=== PATIENT | male | born 1945 | race Caucasian/White ===

== ENCOUNTER 2025-03-05 19:48 | Inpatient (IN) | payer MEDICARE, MEDICAID, SELFPAY ==
[2025-03-05 19:51] VITALS: PULSE 125; RESP 16; O2SAT 95; BMI 35.2
--- NOTE | 2025-03-05 20:08 | XR_ITS ---
EXAMINATION: Abdominal series 3 views including AP portable semiupright chest TECHNIQUE: AP portable semiupright chest single view, AP upright AP supine abdomen 3 views Date and time: March 05, 2025, 2012 hours, comparison September 10, 2022 INDICATIONS: Shortness of breath abdominal pain today. FINDINGS: Normal heart size Poor inspiratory effort Mild vascular congestion Air and fluid distended stomach No obstruction Mild colonic ileus Rectal tube IMPRESSION: Moderately air distended stomach Mild colonic ileus
--- NOTE | 2025-03-05 20:08 | PD.EDAMS ---
Altered Mental Status RME/HPI General Chief Complaint: Altered Mental Status Stated Complaint: AMS Time Seen by Provider: 03/05/25 20:00 Arrival date/time: 03/05/25 19:48 79-year-old male patient with significant history of hypertension diabetes mellitus, dementia, DNR selective treatment, for alf, was brought in for evaluation regarding altered mental status. Patient apparently was noted to be hypoxic, febrile, coughing a lot and having shortness of breath. Onset of symptoms several hours prior to ER visit. When the EMS arrived patient was noted to be satting 93%, GCS of 12, normal is GCS 14. Patient is nonverbal. No other pertinent information can be extracted at this time. Related Data Home Medications ?Medication ?Instructions ?Recorded ?Confirmed acetaminophen 325 mg tablet 650 mg PO Q4H PRN Pain 01/31/19 02/27/19 (Tylenol) bisacodyl 10 mg rectal suppository 10 mg NH Q24H PRN Constipation 02/01/19 02/27/19 (Dulcolax (bisacodyl)) clonidine HCl 0.2 mg tablet 0.2 mg PO QDAY 02/01/19 02/27/19 fenofibrate 54 mg tablet 54 mg PO QDAY 02/01/19 02/27/19 glipizide 5 mg tablet (Glucotrol) 5 mg PO BID 02/01/19 02/27/19 insulin glargine 100 unit/mL (3 15 unit subcut HS Diabetes 02/01/19 02/27/19 mL) subcutaneous pen (Basaglar KwikPen U-100 Insulin) lactulose 20 gram/30 mL oral 30 ml PO BID 02/01/19 02/27/19 solution magnesium hydroxide 400 mg/5 mL 30 ml PO Q72H PRN Constipation 02/01/19 02/27/19 oral suspension (Milk of Magnesia) metformin 500 mg tablet 500 mg PO BID 02/01/19 02/27/19 multivitamin (Multiple Vitamins 1 tab PO QDAY 02/01/19 02/27/19 tablet) peg [id number] 1 1 drp ophthalmic (eye) QDAY PRN 02/01/19 02/27/19 %-0.2 %-0.2 % eye drops Dry Eyes (Artificial Tears ([id number])) perphenazine-amitriptyline 2 mg-10 0.5 tab PO HS 02/01/19 02/27/19 mg tablet sitagliptin phosphate 100 mg 100 mg PO QDAY Diabetes 02/01/19 02/27/19 tablet (Januvia) spironolactone 25 mg tablet 25 mg PO BID 02/01/19 02/27/19 (Aldactone) Previous Rx's ?Medication ?Instructions ?Recorded amoxicillin 875 mg-potassium 1 tab PO BID #10 tabs 02/03/19 clavulanate 125 mg tablet amoxicillin 875 mg-potassium 1 tab PO BID #14 tabs 02/28/19 clavulanate 125 mg tablet (Augmentin) cefuroxime axetil 500 mg tablet 500 mg PO BID #14 tabs 04/12/23 Allergies Allergy/AdvReac Type Severity Reaction Status Date / Time No Known Allergies Allergy Verified 03/05/25 19:57 Review of Systems Review of Systems Narrative Review of Systems: Review of system reviewed and within normal limits except mentioned in HPI ED Exam Narrative Physical exam: VITAL SIGNS: Reviewed. GENERAL APPEARANCE: Alert and oriented x 1, does not follows commands, no acute distress, coughing a lot HEAD AND FACE: Non-traumatic. ENT: PERRL, pink conjunctivitis, eyelid no trauma, Mucous membrane moist. NECK: Supple, nontender, no nuchal rigidity. CHEST: No tenderness, no crepitus, no paradoxical movement, no retractions. LUNGS: Clear, well ventilated, symmetric, no rales, no wheezing, no ronchi, no stridor, good breath sounds bilaterally. HEART: Regular rate, regular rhythm, no murmur, no gallops. ABDOMEN: Soft, positive bowel sounds, nondistended, no guarding, nontender, no rebound, no masses, RECTAL: Deferred. GENITAL: Deferred. NEUROLOGICAL: Gross motor function intact sensory function intact, Appropriate for age. MUSCULOSKELETAL: low back nontender, full range of motion. EXTREMITIES: Bilateral lower extremity atrophy, contracted, with limitation range of motion. SKIN: Color pink, dry, no rash, no lacerations, no abrasions, no contusions. LYMPHATICS: Deferred. Course Quality Measures none Orders Category Date Time Status COVID-19 Screening Questionnaire NOW Care 03/05/25 22:15 Active Choir Director STAT Care 03/05/25 20:07 Active Continuous Pulse Oximetry STAT Care 03/05/25 20:07 Completed Decision to Admit X1 Care 03/05/25 22:15 Active EKG (ED ONLY) *Do not use* NOW Care 03/05/25 20:07 Completed In and Out Catheter X1PRN Care 03/05/25 20:07 Completed Insert IV NOW Care 03/05/25 20:07 Active NPO STAT Care 03/05/25 20:07 Active Strict Intake and Output Routine Care 03/05/25 20:[address] chest wo con Stat Exams 03/05/25 20:[address] head/brain wo con Stat Exams 03/05/25 20:47 Taken EKG (ED Only) Stat Exams 03/05/25 20:07 Ordered XR abdomen series w chest 1V Stat Exams 03/05/25 20:08 Taken B-Type Natriuretic Peptide Stat Lab 03/05/25 20:34 Completed Blood Culture (Lab) Stat Lab 03/05/25 20:36 Received CBC Stat Lab 03/05/25 20:34 Completed Comprehensive Metabolic Panel Stat Lab 03/05/25 20:34 Completed LDH (Lactate Dehydrogenase) Stat Lab 03/05/25 20:34 Completed Lactate (Lactic Acid) Stat Lab 03/05/25 20:34 Results Lipase Stat Lab 03/05/25 20:34 Completed Magnesium Stat Lab 03/05/25 20:34 Completed Partial Thromboplastin Time Stat Lab 03/05/25 20:34 Completed Path Review Blood Smear Stat Lab 03/05/25 20:34 Completed Phosphorous Stat Lab 03/05/25 20:34 Completed Procalcitonin Stat Lab 03/05/25 20:34 Completed Prothrombin Time with INR Stat Lab 03/05/25 20:34 Completed Troponin I Q3H Lab 03/06/25 00:01 Ordered Troponin I Q3H Lab 03/06/25 03:01 Ordered Troponin I Q3H Lab 03/06/25 06:01 Ordered Troponin I Stat Lab 03/05/25 20:34 Completed Troponin I Stat Lab 03/05/25 22:18 Completed Urinalysis, C/S if Indicated Stat Lab 03/05/25 20:30 Completed Urine Culture Stat Lab 03/05/25 20:30 Received Acetaminophen Ivpb [Ofirmev Inj] Med 03/05/25 20:19 Discontinued 1,000 mg in 100 ml IV X1 Ringers Lactated 1000 ml [Lactated Ringers] 1,000 ml Med 03/05/25 21:57 Active IV 125 mls/hr Ringers Lactated 1000 ml [Lactated Ringers] 1,000 ml Med 03/05/25 20:18 Discontinued IV 999 mls/hr Vancomycin Inj 1,000 mg Med 03/05/25 22:13 Active Sodium Chloride 0.9% 250 ml [Ns] 250 ml IV X1 cefTRIAXone/D5w 1gm IV premix [Rocephin/D5w 1gm IV Med 03/05/25 20:18 Discontinued premix] 1 gm in 50 ml IV X1 Oxygen Delivery NOW RT 03/05/25 20:07 Active Vital Signs Vital signs: Vital Signs Oxygen Flow Rate 2 03/05/25 20:14 Altered Mental Status MDM Narrative MDM Narrative:: 79-year-old male patient with significant history of hypertension diabetes mellitus, dementia, DNR selective treatment, for alf, was brought in for evaluation regarding altered mental status. Patient apparently was noted to be hypoxic, febrile, coughing a lot and having shortness of breath. Onset of symptoms several hours prior to ER visit. When the EMS arrived patient was noted to be satting 93%, GCS of 12, normal is GCS 14. Patient is nonverbal. No other pertinent information can be extracted at this time. Patient's CBC showed leukocytosis of 16.9. Neutrophil of 12.6 initial lactic acid was noted with 4.6, glucose 302 no sign of DKA. Patient's troponin also was noted to be elevated 1.16 initially, after 2 hours it went up to 1.82. Urinalysis positive for UTI. CT chest showed possible aspiration pneumonia. CT of the head came back unremarkable. EKG showed sinus tachycardia, no ST segment elevation or depression noted as read by my EDMD Patient was given IV ceftriaxone and IV vancomycin. 2 L of IV fluids given. Patient was also given Tylenol. Patient data External records reviewed:: None Clinical information provided by:: patient Social determinants that could affect healthcare access:: none Patient has the following chronic illnesses:: Diabetes mellitus, dementia, hypertension DNR, selective treatment How is presenting disease/condition affected by chronic disease/condition?: exacerbated by Evaluation data The following diagnostics were reviewed and interpreted by me:: lab results, radiology exam(s) and EKG tracing(s) Lab and/or radiology exams considered but not ordered:: None Interpretation Summary: See MDM Medications / Prescriptions Medications or Prescriptions considered but not ordered:: None Medication administrations:: Medication Administration History Lactated Ringer's (Lactated Ringers) 1,000 mls @ 125 mls/hr IV .Q8H ONE Stop: 03/06/25 05:56 Vancomycin HCl 1,000 mg/ (Sodium Chloride) 250 mls @ 150 mls/hr IV X1 ONE Stop: 03/05/25 23:52 Discontinued Medications Lactated Ringer's (Lactated Ringers) 1,000 mls @ 999 mls/hr IV .Q1H1M ONE Stop: 03/05/25 21:18 Last Infusion: 03/05/25 21:32 Dose: Infused Documented By: Admin: 03/05/25 20:31 Dose: 999 mls/hr Documented By: CCT Ceftriaxone Sodium/Dextrose (Rocephin/D5w 1gm Iv Premix) 1 gm in 50 mls @ 100 mls/hr IV X1 ONE Stop: 03/05/25 20:47 Last Infusion: 03/05/25 21:06 Dose: Infused Documented By: Admin: 03/05/25 20:36 Dose: 100 mls/hr Documented By: CCT Acetaminophen (Ofirmev Inj) 1,000 mg in 100 mls @ 250 mls/hr IV X1 ONE Stop: 03/05/25 20:42 Last Infusion: 03/05/25 20:57 Dose: Infused Documented By: Admin: 03/05/25 20:33 Dose: 250 mls/hr Documented By: CCT See [facility] Consultations Consultation(s) initiated? (list below): No Diagnosis Differential diagnosis altered mental status: altered mental status and sepsis Most likely diagnosis given after review of the tests above:: Sepsis, aspiration pneumonia, elevated troponin Admission Indicated Admission indicated?: indicated Admission Request Was there a request for admission?: Yes Admission Attestation Admission request attestation: Discussed case with [Dr. Rey] from Hospitalist service regarding admission. Discussed patients ED course, exam findings, labs, and radiology results. The Hospitalist [agrees to accept the patient for admission. Disposition Plan Disposition Plan: Admit Discharge Plan Plan Patient Disposition: Admit Acute Care w/in Hospital Prescriptions/Referrals Prescriptions/Med Rec: No Action amoxicillin-pot clavulanate [Augmentin] 875-125 mg tablet 1 tab PO BID Qty: 14 0RF acetaminophen [Tylenol] 325 mg Tablet 650 mg PO Q4H PRN (Reason: Pain) multivitamin [Multiple Vitamins] Tablet 1 tab PO QDAY metformin 500 mg Tablet 500 mg PO BID spironolactone [Aldactone] 25 mg Tablet 25 mg PO BID clonidine HCl 0.2 mg Tablet 0.2 mg PO QDAY magnesium hydroxide [Milk of Magnesia] 400 mg/5 mL Suspension 30 ml PO Q72H PRN (Reason: Constipation) bisacodyl [Dulcolax (bisacodyl)] 10 mg Suppository 10 mg NH Q24H PRN (Reason: Constipation) perphenazine-amitriptyline 2-10 mg Tablet 0.5 tab PO HS glipizide [Glucotrol] 5 mg Tablet 5 mg PO BID Artificial Tears([id number]) 1-0.2-0.2 % Drops 1 drp ophthalmic (eye) QDAY PRN (Reason: Dry Eyes) Januvia 100 mg Tablet 100 mg PO QDAY Luis Pereira U-100 Insulin 100 unit/mL (3 mL) Insulin Pen 15 unit subcut HS fenofibrate 54 mg Tablet 54 mg PO QDAY lactulose 20 gram/30 mL Solution 30 ml PO BID amoxicillin-pot clavulanate 875-125 mg tablet 1 tab PO BID Qty: 10 0RF cefuroxime axetil 500 mg tablet 500 mg PO BID Qty: 14 0RF Referrals: No Primary/Family,Physician [Primary Care Provider] - In 1 week Problem List Clinical Impression: Sepsis, Pneumonia, Elevated troponin Patient/Caregiver Discharge Instructions Print Language: Georgian Stand Alone Forms: Nella Award Info., Patient Portal Info Letter
[2025-03-05 20:18] VITALS: BP 181/112; PULSE 125; RESP 35; TEMP 38.3; O2SAT 93
[2025-03-05] MEDS: RINGERS LACTATED 1000 ML 1,000 ML 999 ML IV (20:31)
[2025-03-05] MEDS: ACETAMINOPHEN IVPB 1,000 MG/100 ML VIAL 250 MG IV (20:33)
[2025-03-05] MEDS: cefTRIAXone/D5w 1gm IV premix 1 GM/50 ML BAG IV (20:36)
[2025-03-05 20:46] LABS: Basophils # (Auto) 0.1 Thou/mm3 (0.0-0.2); Basophils % (Auto) 1 % (0-2.5); Eosinophils # (Auto) 0.0 Thou/mm3 (0.0-0.5); Eosinophils % (Auto) 0 % (0-10); Hematocrit 43.9 % (41.0-53.0); Hemoglobin 14.9 g/dL (13.5-16.0); Immature Granulocytes Auto 0.06 Thou/mm3 (0.00-0.00); Lymphocytes # (Auto) 1.7 Thou/mm3 (1.0-4.8); Lymphocytes % (Auto) 10 % (10-50); Mean Corpuscular HGB Conc 33.9 g/dl (31.0-37.0); Mean Corpuscular Hemoglobin 31.4 pg (25.0-35.0); Mean Corpuscular Volume 92 fL (80-100); Monocytes # (Auto) 2.5 Thou/mm3 (0.0-0.8); Monocytes % (Auto) 15 % (0-12); Neutrophils # (Auto) 12.6 Thou/mm3 (1.8-7.7); Neutrophils % (Auto) 74 % (37-80); Nucleated Red Blood Cell # 0.00 Thou/mm3 (0.00-0.00); Nucleated Red Blood Cell % 0 /100 WBC (0); Platelet Count 179 Thou/mm3 (140-440); RDW Standard Deviation 44.5 fL (35.1-43.9); Red Blood Count 4.75 Miln/mm3 (4.50-5.90); White Blood Count 16.9 Thou/mm3 (3.8-10.6)
[2025-03-05 20:47] LABS: Collection Type, Urine Clean Catch
[2025-03-05 20:47] LABS: Lactate (Lactic Acid) 4.6 mMol/L (0.4-2.0)
--- NOTE | 2025-03-05 20:47 | XR_ITS ---
Examination: CT chest, without intravenous contrast. Sagittal and coronal 2-D reconstructions. Exam date and time: March 05, 2025, 2110 hours INDICATIONS: Shortness of breath today CTDI:vol (mGy) 17.1 DLP: (mGycm) 575 Technique: Multiple 3.0 mm axial sections of the chest to been obtained. Bone and lung density settings are obtained. Sagittal and coronal 2-D reconstructions have been obtained. Low dose protocols were performed. One or more of the following dose reduction techniques were used; automated exposure control, adjustment of the mA and/or KV according to patient size, use of iterative reconstruction technique. Findings: No thoracic aortic aneurysm dilatation Pulmonary artery segments are nonenlarged. No paratracheal tracheobronchial or bronchopulmonary adenopathy Opacity left base consistent with pneumonia No pulmonary edema Heavy calcification left anterior descending coronary artery right coronary artery No visualized liver or splenic lesion No gallstones No pancreatic mass Moderate thoracic spondylosis IMPRESSION: Mild left lower lobe pneumonia
--- NOTE | 2025-03-05 20:47 | XR_ITS ---
Examination: CT brain head without contrast. 2-D sagittal coronal reconstructions Date and time of exam: March 05, 2025, 2108 hours INDICATIONS: Onset altered mental status today CTDI: vol (mGy): 54.30 DLP: (mGycm): 1269 Technique: Multiple CT axial sections of the brain have been obtained, 5 mm slice thickness. Contrast has not been administered. 2-D sagittal, coronal reconstructions have been obtained Low dose protocols were performed. One or more of the following dose reduction techniques were used; automated exposure control, adjustment of the mA and/or KV according to patient size, use of iterative reconstruction technique. 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
[2025-03-05 20:54] LABS: Bacteria,Urine Rare; Bilirubin,Urine Negative (Negative); Blood,Urine 2+ (Negative); Budding Yeast,Urine Present; Clarity,Urine Clear (Clear/Hazy); Color,Urine Yellow (Lt Yel-Yel); Glucose, Urine 4+ (Negative); Ketones,Urine Trace (Negative); Leukocyte Esterase,Urine Positive (Negative); Nitrite,Urine Negative (Negative); PH,Urine 5.5 (5.0-7.0); Protein,Urine 1+ (Neg - Trace); RBC,Urine 34 /hpf (0-3); Specific Gravity,Urine 1.035 (1.001-1.035); Squamous Epithelial Cell,Urine 2 /hpf (0-5); Urobilinogen,Urine Negative mg/dL (0.0-1.0); WBC,Urine 123 /hpf (0-5)
[2025-03-05 21:05] LABS: INR 1.2 (0.9-1.3); Partial Thromboplastin Time 26.7 Seconds (22.0-36.0); Prothrombin Time 12.3 Seconds (9.0-12.2)
[2025-03-05 21:06] LABS: B-Type Natriuretic Peptide 378 pg/mL (0-100)
[2025-03-05 21:09] LABS: Culture Indicated,Urine Yes
[2025-03-05 21:16] LABS: Alanine Aminotransferase 21 U/L (10-49); Albumin, Serum 4.2 gm/dL (3.4-4.8); Albumin/Globulin Ratio 1.4 (1.2-2.2); Alkaline Phosphatase 65 U/L (46-116); Anion Gap 12 (7-16); Aspartate Amino Transferase 44 U/L (0-34); BUN/Creatinine Ratio 12 Ratio (12-20); Bilirubin,Total 1.1 mg/dL (0.3-1.2); Blood Urea Nitrogen 12 mg/dL (9-23); Calcium 9.4 mg/dL (8.3-10.6); Calcium (Corrected) 9.4 mg/dL (8.5-10.1); Carbon Dioxide 20.2 mMol/L (20.0-31.0); Chloride 107 mMol/L (98-107); Creatinine (Component) 1.0 mg/dL (0.6-1.3); Estimated Creatinine Clearance 53.1 mL/min (>60); Globulin 3.1 gm/dL (2.3-3.5); Glucose 301 mg/dL (74-106); Lipase 38 U/L (12-53); Magnesium 1.6 mg/dL (1.6-2.6); Osmolality,Calculated 288 (275-295); Phosphorous 2.5 mg/dL (2.4-5.1); Potassium 4.4 mMol/L (3.4-5.1); Procalcitonin 0.14 ng/ml (0.0-0.49); Sodium 139 mMol/L (136-145); Total Protein 7.3 gm/dL (5.7-8.2); eGFR > 60 See Note
[2025-03-05 21:19] LABS: Troponin I 1.162 ng/mL (0.0-0.045)
[2025-03-05 21:29] LABS: Path Review Blood Smear Sent to Pathologist
[2025-03-05 21:35] VITALS: BP 152/90; PULSE 102; RESP 32; TEMP 37.8; O2SAT 3
--- NOTE | 2025-03-05 21:51 | PRELIM_ITS ---
Radiographs of the chest and abdomen (3 views). March 05, 2025 2011 hours Clinical history: Possible Sepsis Comparison: No prior study is available for comparison. Findings: The bowel gas pattern is nonspecific. No abnormal intra-abdominal calcification is identified. A moderate amount of fecal material is present in the colon. The interstitial markings are prominent. The costophrenic angles are clear. The aorta is ectatic with atheromatous calcification of the aortic arch. The heart size is within normal limits. The osseous structures are unremarkable. Impression: No acute cardiopulmonary process. No evidence of bowel obstruction. Report Electronically Signed By: Yash Rapp 03/05/2025 9:51:17 PM [EST]
[2025-03-05 22:02] LABS: LDH (Lactate Dehydrogenase) 337 U/L (120-246)
--- NOTE | 2025-03-05 22:06 | PRELIM_ITS ---
CT scan of the chest without intravenous contrast (axial sections with sagittal and coronal reformats) March 05, 2025 2110 hours Clinical History: sob Comparison: No prior study is available for comparison. Findings: The evaluation is limited due to respiratory motion artifact There is a hazy opacity in the left lower lobe. No evidence of pleural effusion or pneumothorax. The mediastinum demonstrates no evidence of mass or lymphadenopathy. The thoracic aorta is unremarkable. There is no pericardial effusion. Degenerative changes are identified in the spine. The visualized upper abdominal viscera are unremarkable on this noncontrast study. Impression: Hazy opacity in the left lower lobe , likely of infectious etiology. Recommend clinical correlation. Other findings as described above. Report Electronically Signed By: Yash Rapp 03/05/2025 10:05:23 PM [EST]
--- NOTE | 2025-03-05 22:27 | PRELIM_ITS ---
CT scan of the head without intravenous contrast (axial sections with sagittal and coronal reformats): March 05, 2025 at 2108 hours Clinical history: Altered mental status. Comparison: No prior study is available for comparison. Findings: There is no evidence of intracranial hemorrhage, mass effect or midline shift. There are periventricular significant white matter hypodensities, compatible with chronic small vessel ischemia. There is moderate volume loss. Lacunar infarcts are seen in bilateral basal ganglia and internal capsule. Right frontal encephalomalacic changes are seen. There is a estefania hole defect in the right frontal calvarium. Additionally, there is a right occipital craniectomy with underlying bilateral cerebellar encephalomalacic changes. Extra-axial CSF space (of size 3 x 5 cm) is seen along the right cerebellar lobe. Also, there is CSF outpouching (of size 3 x 5 cm) across the craniectomy defect, which may represent pseudomeningocele. Atheromatous calcification is seen of intracranial arteries are seen. The mastoid air cells and the visualized paranasal sinuses are clear. Impression: 1. No evidence of intracranial hemorrhage, mass effect or midline shift. If there are persistent clinical symptoms or additional clinical concerns, consider MRI. 2. Periventricular chronic small vessel ischemia, chronic lacunar infarcts and volume loss. 3. 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 4. Other findings as described above. Report Electronically Signed By: Yash Rapp 03/05/2025 10:27:22 PM [EST]
[2025-03-05 22:49] LABS: Troponin I 1.827 ng/mL (0.0-0.045)
[2025-03-05 23:05] VITALS: BP 144/85; PULSE 91; RESP 26; TEMP 37.8; O2SAT 95
[2025-03-05] MEDS: Vancomycin Inj 1,000 MG in SODIUM CHLORIDE 0.9% 250 ML 250 ML 150 MG IV (23:24)
[2025-03-05] MEDS: RINGERS LACTATED 1000 ML 1,000 ML 125 ML IV (23:26)
--- NOTE | 2025-03-05 23:30 | XR_ITS ---
Examination: CT abdomen and pelvis without contrast. Coronal 3-D reconstructions. Sagittal 2-D reconstructions. Date and time of exam: March 06, 2025, 0128 hours, comparison February 01, 2019 INDICATIONS: Sepsis alert today, unknown source of infection CTDI: vol (mGy): 13.31 DLP: (mGycm): 955 Technique: Axial images of the abdomen have been obtained, 3 mm slice thickness Intravenous contrast material has not been administered. Low dose protocols were performed. One or more of the following dose reduction techniques were used; automated exposure control, adjustment of the mA and/or KV according to patient size, use of iterative reconstruction technique. Findings: Mild pneumonia left base Liver is irregular in contour Contracted gallbladder Spleen is not enlarged Significant mesenteric edema with multiple lymph nodes in the mesentery No hydronephrosis No pericecal inflammatory change Transverse prostate dimension 4.8 cm Contracted urinary bladder Fat-containing inguinal hernias Prominent osteopenia IMPRESSION: Left lower lobe pneumonia Extensive edema in the mesentery including edema surrounding the superior mesenteric vein Recommend CTA abdomen/pelvis post intravenous contrast follow-up to differentiate mesenteric lymphadenitis, thrombus in the superior mesenteric vein and early lymphoma or Hodgkin's disease diagnosis
[2025-03-05 23:43] LABS: Reflex Lactate? Y
[2025-03-06] VITALS (13 sets, daily range): BP systolic 124–136; BP diastolic 68–78; PULSE 74–106; RESP 19–38; TEMP 37–37.7; O2SAT 92–97
--- NOTE | 2025-03-06 00:07 | PC.NURSE ---
Pt failed swallow screen. Spoke with admit provider about po meds that were ordered to clarify not administering po meds due to failed swallow screen. See MAR
[2025-03-06 00:31] LABS: Lactic Acid, 3 HR 2.5 mMol/L (0.4-2.0)
[2025-03-06] MEDS: SODIUM CHLORIDE 0.9% 1000 ML 2,000 ML 999 ML IV (00:52)
[2025-03-06] MEDS: Heparin/D5w 25K 250 ML Ivpb 25,000 UNIT/250 ML BAG 9.798 UNIT IV (00:57)
[2025-03-06 01:03] LABS: Troponin I 2.776 ng/mL (0.0-0.045)
--- NOTE | 2025-03-06 02:42 | PD.RESHP ---
Documentation for date of: 03/06/25 HPI History of Present Illness History of present illness: 79-year-old male patient with significant history of hypertension diabetes mellitus, dementia, cirrhosis, HLD, DNR selective treatment, for residential, was brought in for evaluation regarding altered mental status. Patient apparently was noted to be hypoxic, febrile, coughing a lot and having shortness of breath. Admitted for sepsis work up, possible pulmonary (pneumonia) or urinary (UTI) source. ED Course Summary Vitals: BP 181/112 HR 125 RR 35 T 100.9F O2sat 93% NC 2L Labs: WBC 16.9, PT 12.3 INR 1.2 APTT 26.7 Glucose 301 Lactic acid 4.6 AST 44 LDH 337 Trop 1.162 --> 1.827 --> 2.776, BNP 378, UA +1 protein +4 glucose +2 blood 34 RBC 123 WBC +budding yeast Imaging: EKG done at [facility] CXR pending read Chest CT pending read Head CT pending read CTAP pending read Treatment: Duoneb, heparin, NS, LR, Vancomycin, Ceftriaxone, acetominophen Upon initial evaluation patient is unresponsive and noncommunicative AOx0 GCS 10. He makes no effort to communicate but makes eye contact occasionally. He persistently and loudly gurgles in his upper throat throughout the interview. Upon physical exam patient began screaming the second he was touched by the stethoscope or examiner. All other information is pulled from SNF form or chart review. Code: DNR Insulin: yes Medical Hx: HTN, IDDM, dementia, cirrhosis Medications: metformin 500mg BID, Sitaglipitn 100mg QD, lactulose BID, VPA 250mg BID, clonidine 0.2 mg QD, hydroxyzine 50mg QD, fenofibrate 54mg x2 PM Allergies: NKA Surgical history: None Living: [facility] Alcohol: Never Cigarettes/tobacco: Never Recreational drugs: Never Patient admitted for: Admitted for sepsis work up, possible pulmonary (pneumonia) or urinary (UTI) source. All 12 systems reviewed and were negative except otherwise stated in HPI. Exam Vital Signs Temp Pulse Resp BP Pulse Ox O2 Del Method O2 Flow Rate 99.7 F 81 19 130/75 97 Nasal Cannula 2.5 03/06/25 02:00 03/06/25 02:00 03/06/25 02:00 03/06/25 02:00 03/06/25 02:00 03/06/25 02:00 03/06/25 02:00 Narrative Exam GENERAL APPEARANCE: AOx0 (baseline). Constantly gargling in his upper throat. Well developed/ well nourished, no cyanosis, pallor, or diaphoresis. HEENT: Normocephalic atraumatic, no facial trauma, neck is supple. Lids/conjunctiva normal. Mucous membranes moist, nares normal, lips/teeth normal uvula midline without oral pharyngeal erythema, exudate or swelling TMs normal bilaterally. No lymphangitis/lymphedema. CARDIAC: Difficult to auscultate due to angry gargling by patient. Tachycardic, S1+S2 heard. No murmurs, rubs, or gallops noted RESPIRATORY: respiratory effort normal, speaks in full sentences, no tripod position, no accessory muscle use. Breathing fine, diffuse gargles, gargles ceased when patient had bed at -30degrees elevation during hygienic cleaning. No rales or crackles able to be auscultated. ABDOMINAL: Patient screamed upon lifting of shirt, unable to determine pain, most likely no pain on exam. NBS. Soft, ND/NT. No evidence of fluid wave. No pulsatile masses on exam, rebound tenderness, Kwon sign or pain over Mcburney's point. MUSCLES/EXTREMITIES: No abnormal range of motion, no swelling. DERM: Warm, pink and dry. No rashes, dermatoses, petechiae or lesions. NEUROLOGICAL: Speech is clear and appropriate. Normal level of consciousness. Gait and coordination unable to be assessed. Results: Labs 03/07/25 04:15 03/07/25 04:15 Labs: Short CBC 03/05/25 Range/Units 20:34 WBC 16.9 H (3.8-10.6) Thou/mm3 Hgb 14.9 (13.5-16.0) g/dL Hct 43.9 (41.0-53.0) % Plt Count 179 (140-440) Thou/mm3 BMP 03/05/25 20:34 Sodium 139 Potassium 4.4 Chloride 107 Carbon Dioxide 20.2 BUN 12 Creatinine 1.0 Glucose 301 H Calcium 9.4 Cardiac Enzymes 03/05/25 03/05/25 03/06/25 Range/Units 20:34 22:18 00:12 Troponin I 1.162 H* 1.827 H* D 2.776 H* D (0.0-0.045) ng/mL Liver Function 03/05/25 Range/Units 20:34 Total Bilirubin 1.1 (0.3-1.2) mg/dL AST 44 H (0-34) U/L ALT 21 (10-49) U/L Alkaline Phosphatase 65 (46-116) U/L Albumin 4.2 (3.4-4.8) gm/dL Urine 03/05/25 Range/Units 20:30 Urine Color Yellow (Lt Yel-Yel) Urine Clarity Clear (Clear/Hazy) Urine pH 5.5 (5.0-7.0) Ur Specific [place] 1.035 (1.001-1.035) Urine Protein 1+ A (Neg - Trace) Urine Glucose (UA) 4+ A (Negative) Quality Measures Quality Measures VTE prophylaxis Advance care planning discussed with:: other Medications Home Medications and Allergies Home Medications ?Medication ?Instructions ?Recorded ?Confirmed ?Type acetaminophen 325 mg tablet 650 mg PO Q4H PRN Pain 01/31/19 02/27/19 History (Tylenol) bisacodyl 10 mg rectal suppository 10 mg RI Q24H PRN Constipation 02/01/19 02/27/19 History (Dulcolax (bisacodyl)) clonidine HCl 0.2 mg tablet 0.2 mg PO QDAY 02/01/19 02/27/19 History fenofibrate 54 mg tablet 54 mg PO QDAY 02/01/19 02/27/19 History glipizide 5 mg tablet (Glucotrol) 5 mg PO BID 02/01/19 02/27/19 History insulin glargine 100 unit/mL (3 15 unit subcut HS Diabetes 02/01/19 02/27/19 History mL) subcutaneous pen (Basaglar KwikPen U-100 Insulin) lactulose 20 gram/30 mL oral 30 ml PO BID 02/01/19 02/27/19 History solution magnesium hydroxide 400 mg/5 mL 30 ml PO Q72H PRN Constipation 02/01/19 02/27/19 History oral suspension (Milk of Magnesia) metformin 500 mg tablet 500 mg PO BID 02/01/19 02/27/19 History multivitamin (Multiple Vitamins 1 tab PO QDAY 02/01/19 02/27/19 History tablet) peg [id number] 1 1 drp ophthalmic (eye) QDAY PRN 02/01/19 02/27/19 History %-0.2 %-0.2 % eye drops Dry Eyes (Artificial Tears ([id number])) perphenazine-amitriptyline 2 mg-10 0.5 tab PO HS 02/01/19 02/27/19 History mg tablet sitagliptin phosphate 100 mg 100 mg PO QDAY Diabetes 02/01/19 02/27/19 History tablet (Januvia) spironolactone 25 mg tablet 25 mg PO BID 02/01/19 02/27/19 History (Aldactone) Allergies Allergy/AdvReac Type Severity Reaction Status Date / Time No Known Allergies Allergy Verified 03/05/25 19:57 Visit Medications Acetaminophen (Acetaminophen 325 Mg Tablet) 650 mg PO Q6H PRN PRN Reason: Fever >100.4 or pain 1-3 Stop: 04/05/25 02:36 Hydrocodone Bitart/Acetaminophen (Hydrocodone/Apap 5/325 Tablet) 1 tab PO Q4HR PRN PRN Reason: PAIN SCALE 4-6 (Moderate Stop: 03/11/25 02:36 Albuterol/Ipratropium (Albuterol/Ipratropium (Duoneb) Rt Jonelle 3 Ml Nebu) 3 ml INH Q4HRRT SOHA Stop: 04/05/25 02:59 Aspirin (Aspirin Ec 81 Mg Tabec) 81 mg PO QDAY SOHA Stop: 04/05/25 08:59 Docusate Sodium (Docusate Sod 100 Mg Capsule) 100 mg PO QDAY PRN; Protocol PRN Reason: CONSTIPATION Stop: 04/05/25 02:36 Famotidine (Famotidine Inj 10 Mg/Ml Vial 2 Ml) 20 mg IVP Q12HR SOHA Stop: 04/05/25 08:59 Lactated Ringer's (Lactated Ringers) 1,000 mls @ 125 mls/hr IV .Q8H ONE Stop: 03/06/25 05:56 Last Admin: 03/05/25 23:26 Dose: 125 mls/hr Heparin Sodium/Dextrose (Heparin In D5w Ivpb) 25,000 unit in 250 mls @ 9.798 mls/hr IV .Q24H SOHA; Protocol Stop: 03/19/25 23:29 Last Admin: 03/06/25 00:57 Dose: 12 units/kg/hr, 9.798 mls/hr Ondansetron HCl (Ondansetron Inj 2 Mg/Ml Inj 2 Ml) 4 mg IVP Q6H PRN; Protocol PRN Reason: NAUSEA OR VOMITING Stop: 04/05/25 02:36 Sodium Chloride (Sodium Chloride Rt 10% 15 Ml Nebu) 5 ml INH X1 ONE Stop: 03/06/25 02:38 Discontinued Medications Aspirin (Aspirin 325 Mg Tablet) 325 mg PO X1 ONE Stop: 03/05/25 23:22 Last Admin: 03/06/25 00:06 Dose: Not Given Atorvastatin Calcium (Atorvastatin Calcium 10 Mg Tablet) 80 mg PO X1 ONE Stop: 03/05/25 23:22 Last Admin: 03/06/25 00:07 Dose: Not Given Clopidogrel Bisulfate (Clopidogrel Bisulfate 75 Mg Tablet) 75 mg PO X1 ONE Stop: 03/05/25 23:22 Last Admin: 03/06/25 00:07 Dose: Not Given Heparin Sodium (Porcine) (Heparin Sod Inj 5000 Unit/Ml Vial) 4,000 unit IV X1 ONE; Protocol Stop: 03/05/25 23:22 Last Admin: 03/06/25 01:01 Dose: Not Given Lactated Ringer's (Lactated Ringers) 1,000 mls @ 999 mls/hr IV .Q1H1M ONE Stop: 03/05/25 21:18 Last Infusion: 03/05/25 21:32 Dose: Infused Ceftriaxone Sodium/Dextrose (Rocephin/D5w 1gm Iv Premix) 1 gm in 50 mls @ 100 mls/hr IV X1 ONE Stop: 03/05/25 20:47 Last Infusion: 03/05/25 21:06 Dose: Infused Acetaminophen (Ofirmev Inj) 1,000 mg in 100 mls @ 250 mls/hr IV X1 ONE Stop: 03/05/25 20:42 Last Infusion: 03/05/25 20:57 Dose: Infused Vancomycin HCl 1,000 mg/ (Sodium Chloride) 250 mls @ 150 mls/hr IV X1 ONE Stop: 03/05/25 23:52 Last Infusion: 03/06/25 01:05 Dose: Infused Sodium Chloride (Ns) 2,000 mls @ 999 mls/hr IV .Q2H1M ONE Stop: 03/06/25 01:25 Last Admin: 03/06/25 00:52 Dose: 999 mls/hr Assessment & Plan Plan 79-year-old male patient with significant history of hypertension diabetes mellitus, dementia, cirrhosis, HLD, DNR selective treatment, for residential, was brought in for evaluation regarding altered mental status. Patient apparently was noted to be hypoxic, febrile, coughing a lot and having shortness of breath. Admitted for sepsis work up, possible pulmonary (pneumonia) or urinary (UTI) source. #Acute encephalopathy 2/2 #UTI #Pneumonia CAP vs atypicals #Acute hypoxic respiratory failure #Lactic acidosis - resolving Patient came in and found to have 2 or more SIRS criteria and was evaluated for sepsis. However, based upon further work-up, sepsis was ruled out. Patient brought in from residential due to worsening mentation, hypoxia, fevers and SOB. Lactic acid 4.6 --> 2.5 with IV fluids. UA WBC and RBC budding yeast, leukocyte esterase positive. Patient has intense gurgling on exam CTAP concerning for aspiration pneumonia. Plan: -US venous doppler LE bilateral -FUP final reads of all the imaging -FUP urine cx:___ -FUP blood cx:___ -Ceftriaxone 1g IV QPM (03/06 - #NSTEMI likely type II trops 1.8 --> 3.132. Most likely 2/2 demand ischemia. Plan: -Continue to trend trops -Consult cards #Hx of hypertension Plan: -Consider restarting clonidine 0.2 mg QD #Hx of diabetes mellitus (insulin dependent) Home meds metformin 500mg BID, Sitaglipitn 100mg QD Plan: -ISS -Bedside glucose checks #Hx of dementia Patient is nonverbal, GCS 14 at baseline. Failed the swallow eval. -Speech therapy referral #Hx of cirrhosis Home med lactulose BID #Hx of HLD Home med fenofibrate 54mg x2 PM Health Maintenance: Code status: DNR DVT prophylaxis: Heparin GI prophylaxis: Famotidine Diet: NPO Slade: Yes Lines: PIV Supplemental O2: NC Disposition: Tele Patient seen and reviewed with attending Dr. Talbot. Note written by Kendall Egan MD PGY-1 Attending Provider Attestation/Addendum After examination of the patient and review of the clinical data I feel that this patient needs admission to the hospital for further treatment/evaluation. Plan of care discussed with patient and is in agreement. I Dwayne Talbot MD, attest that I was physically present for best portions of evaluation, and examined patient, labs and imagings and plan of care were discussed with IM residents team, and I agree with the findings and plans documented above.
--- NOTE | 2025-03-06 03:10 | PC.RT ---
@0301 sputum sent to lab
[2025-03-06] MEDS: ALBUTEROL/IPRATROPIUM (Duoneb) RT SOL 3 ML NEBU INH ×4 (03:29→19:43)
--- NOTE | 2025-03-06 03:31 | PC.RT ---
@0245 obtained sputum through oral suction. Did not need to use sodium chloride at this time.
[2025-03-06 03:50] LABS: Basophils # (Auto) 0.1 Thou/mm3 (0.0-0.2); Basophils % (Auto) 1 % (0-2.5); Eosinophils # (Auto) 0.1 Thou/mm3 (0.0-0.5); Eosinophils % (Auto) 1 % (0-10); Hematocrit 37.5 % (41.0-53.0); Hemoglobin 12.7 g/dL (13.5-16.0); Immature Granulocytes Auto 0.02 Thou/mm3 (0.00-0.00); Lymphocytes # (Auto) 2.2 Thou/mm3 (1.0-4.8); Lymphocytes % (Auto) 21 % (10-50); Mean Corpuscular HGB Conc 33.9 g/dl (31.0-37.0); Mean Corpuscular Hemoglobin 31.5 pg (25.0-35.0); Mean Corpuscular Volume 93 fL (80-100); Monocytes # (Auto) 1.8 Thou/mm3 (0.0-0.8); Monocytes % (Auto) 17 % (0-12); Neutrophils # (Auto) 6.5 Thou/mm3 (1.8-7.7); Neutrophils % (Auto) 60 % (37-80); Nucleated Red Blood Cell # 0.00 Thou/mm3 (0.00-0.00); Nucleated Red Blood Cell % 0 /100 WBC (0); Platelet Count 150 Thou/mm3 (140-440); RDW Standard Deviation 44.1 fL (35.1-43.9); Red Blood Count 4.03 Miln/mm3 (4.50-5.90); White Blood Count 10.7 Thou/mm3 (3.8-10.6)
--- NOTE | 2025-03-06 03:54 | PRELIM_ITS ---
CT scan of the abdomen and pelvis without intravenous contrast (axial sections with sagittal and coronal reformats) March 06, 2025 at 0128 hours Clinical History: Sepsis, questionable source. Comparison: Correlated with the prior XR study dated March 05, 2025. Findings: Left lower lobe consolidation. The liver, gallbladder, pancreas, spleen, kidneys and adrenals are unremarkable on this noncontrast study. No evidence of bowel obstruction. No evidence of appendicitis. Mesenteric fat stranding. Prominent mesenteric lymph nodes. The urinary bladder is nondistended, limited evaluation. There is no free fluid or free air. Degenerative changes of the imaged portions of the spine. Chronic multilevel disc disease. No acute fractures. Vascular calcifications. Fat stranding peripheral to the superior mesenteric vein. Impression: 1. Left lower lobe consolidation, suspicious for pneumonia. 2. Fat stranding peripheral to the superior mesenteric vein. Further evaluation to assess thrombosis is recommended. 3. Mesenteric fat stranding associated with prominent mesenteric lymph nodes, consider mesenteric lymphadenitis and lymphoma in the differential diagnosis. Report Electronically Signed By: Hermes Duran 03/06/2025 3:53:46 AM [EST]
[2025-03-06 04:25] LABS: Alanine Aminotransferase 18 U/L (10-49); Albumin, Serum 3.6 gm/dL (3.4-4.8); Albumin/Globulin Ratio 1.7 (1.2-2.2); Alkaline Phosphatase 52 U/L (46-116); Anion Gap 9 (7-16); Aspartate Amino Transferase 47 U/L (0-34); BUN/Creatinine Ratio 14 Ratio (12-20); Bilirubin,Total 0.7 mg/dL (0.3-1.2); Blood Urea Nitrogen 11 mg/dL (9-23); Calcium 8.1 mg/dL (8.3-10.6); Calcium (Corrected) 8.4 mg/dL (8.5-10.1); Carbon Dioxide 23.1 mMol/L (20.0-31.0); Cardiac Risk Estimate 4.3 RATIO (4.0-6.7); Chloride 110 mMol/L (98-107); Cholesterol 125 mg/dL (132-200); Creatinine (Component) 0.8 mg/dL (0.6-1.3); Estimated Creatinine Clearance 66.4 mL/min (>60); Globulin 2.1 gm/dL (2.3-3.5); Glucose 212 mg/dL (74-106); HDL Cholesterol 29 mg/dL (40-60); LDL Cholesterol,Calculated 81 mg/dL (0-130); Magnesium 1.6 mg/dL (1.6-2.6); Osmolality,Calculated 288 (275-295); Phosphorous 2.1 mg/dL (2.4-5.1); Potassium 3.7 mMol/L (3.4-5.1); Sodium 142 mMol/L (136-145); Total Protein 5.7 gm/dL (5.7-8.2); Triglycerides 76 mg/dL (30-150); eGFR > 60 See Note
[2025-03-06 04:32] LABS: Troponin I 3.132 ng/mL (0.0-0.045)
--- NOTE | 2025-03-06 04:32 | XR_ITS ---
Examination: Venous duplex lower extremity sonogram, bilateral. Date and time of exam: March 06, 2025, 0954 hours INDICATIONS: Abdominal pain and distention this week, CT abdomen pelvis March 06, 2025 0128 hours edema in the mesentery, possible thrombus in the superior mesenteric vein Technique: Multiple sonographic images of the deep venous system have been obtained. B-mode/2-D grayscale imaging of vascular structures and Doppler spectral analysis (waveforms) and color performed Both legs are examined. Findings: Deep venous systems do not demonstrate abnormal echogenicity. All visualized deep veins exhibit compressibility. All visualized deep veins exhibit augmentation. Impression: Negative for deep vein thrombosis
[2025-03-06 05:19] LABS: Troponin I 2.780 ng/mL (0.0-0.045)
[2025-03-06] MEDS: RINGERS LACTATED 1000 ML 1,000 ML 24.3 ML IV (06:51)
[2025-03-06 08:46] LABS: Partial Thromboplastin Time 34.4 Seconds (22.0-36.0)
[2025-03-06 08:54] LABS: Troponin I 2.961 ng/mL (0.0-0.045)
[2025-03-06] MEDS: FAMOTIDINE INJ 10 MG/ML VIAL 2 ML 20 MG IVP ×2 (09:18→20:41)
[2025-03-06] MEDS: HEPARIN SOD INJ 5000 UNIT/ML VIAL 4000 UNIT IVP (09:19)
[2025-03-06] MEDS: RINGERS LACTATED 1000 ML 1,000 ML 75 ML IV (09:52)
[2025-03-06] MEDS: AZITHROMYCIN INJ 500 MG in SODIUM CHLORIDE 0.9% 250 ML 250 ML 250 MG IV (10:12)
--- NOTE | 2025-03-06 10:41 | ESPR_ITS ---
<Statement entered by Gume Vogel MD - 03/17/25 08:05> I reviewed above note and agree with findings and plans. I have also personally examined the patient with medicine team and went over assessment and plan with medical team including technology intern and resident physician. Documentation for date of: 03/06/25 Subjective Subjective Interval history: No overnight events. Patient was examined at bedside; he appears to be somewhat in distress and is nonverbal at baseline. Vitals/labs today significant for WBC 16.9->10.7, Hgb 14.9->12.7, potassium 4.4->3.7, glucose 212, LA 4.6->2.5, calcium 8.4, magnesium 1.6 AST 44->47, LDH 337, troponin 1.827->3.132, BNP 378, procalcitonin 0.14, UA - (1+ protein, 4+ glucose, 2+ blood, positive LE, 34 RBC, 123 WBC, some bacteria and yeast). Physical exam notable for a persistent gargling/gurgling noise coming from patient's upper airway, patient screaming/yelping when anything makes contact with him (including stethoscope), diffuse expiratory rhonchi and crackles, and right heel ulcer. Patient will be started on a [id number] of azithromycin 500 mg IV qD in addition to his existing regimen of Rocephin 1 g IV qD to cover for atypical infectious etiologies responsible for pneumonia (Rocephin on its own is adequate coverage for patient's UTI as well). Will follow up on UCx and BCx. He has also been started on heparin gtt for his NSTEMI (currently unclear whether it is Type I or Type II). A CTA has been ordered due to the finding of mesenteric fat stranding and prominent mesenteric lymphadenopathy on CTAP w/o contrast to rule out any mesenteric ischemia (low suspicion as lactic acid has already began to down-trend). Patient will also be restarted on his home medication of Keppra. Exam Vital Signs Temp Pulse Resp BP Pulse Ox O2 Del Method O2 Flow Rate 98.6 F 78 22 H 127/68 95 Nasal Cannula 2 03/06/25 08:00 03/06/25 08:40 03/06/25 08:40 03/06/25 08:00 03/06/25 08:40 03/06/25 08:00 03/06/25 08:40 Narrative Exam GENERAL APPEARANCE: AOx0 (baseline). Constantly gargling in his upper throat. In some distress, no cyanosis, pallor, or diaphoresis. HEENT: Normocephalic atraumatic, no facial trauma, neck is supple. Lids/conjunctiva normal. Mucous membranes moist, nares normal, lips/teeth normal uvula midline without oral pharyngeal erythema, exudate or swelling TMs normal bilaterally. No lymphangitis/lymphedema. CARDIAC: Difficult to auscultate due to constant gargling by patient. T achycardic, S1+S2 heard. No murmurs, rubs, or gallops noted RESPIRATORY: Persistent gargling/gurgling noise, expiratory rhonchi and crackles on auscultation of anterior lung francois. No rales, tripod positioning, or accessory muscle use. ABDOMINAL: Patient screamed upon lifting of shirt, and also upon palpation of the abdomen. NBS. Soft. No evidence of fluid wave. No pulsatile masses on exam, rebound tenderness, Kwon sign or pain over Mcburney's point. DERM: Right heel ulcer. Warm, pink and dry. No rashes, dermatoses or petechiae. NEUROLOGICAL: Unable to be assessed as patient does not follow commands Objective Labs 03/06/25 03:40 03/06/25 03:40 Labs: Laboratory Results - last 24 hr 03/05/25 03/05/25 03/05/25 20:30 20:34 22:18 WBC 16.9 H RBC 4.75 Hgb 14.9 Hct 43.9 MCV 92 MCH 31.4 MCHC 33.9 RDW Std Deviation 44.5 H Plt Count 179 Neut % (Auto) 74 Lymph % (Auto) 10 Carver % (Auto) 15 H Eos % (Auto) 0 Baso % (Auto) 1 Neut # (Auto) 12.6 H Lymph # (Auto) 1.7 Carver # (Auto) 2.5 H Eos # (Auto) 0.0 Baso # (Auto) 0.1 Immature Gran # (Auto) 0.06 H Absolute Nucleated RBC 0.00 Immature Gran % 0 Nucleated RBC % 0 Smear Path Review Sent to Pathologist PT 12.3 H INR 1.2 APTT 26.7 Sodium 139 Potassium 4.4 Chloride 107 Carbon Dioxide 20.2 Anion Gap 12 BUN 12 Creatinine 1.0 Estim Creat Clear Calc 53.1 L eGFR > 60 BUN/Creatinine Ratio 12 Glucose 301 H Calculated Osmolality 288 Lactic Acid 4.6 H* Calcium 9.4 Corrected Calcium 9.4 Phosphorus 2.5 Magnesium 1.6 Total Bilirubin 1.1 AST 44 H ALT 21 Alkaline Phosphatase 65 Lactate Dehydrogenase 337 H Troponin I 1.162 H* 1.827 H* D B-Natriuretic Peptide 378 H Total Protein 7.3 Albumin 4.2 Globulin 3.1 Albumin/Globulin Ratio 1.4 Triglycerides Cholesterol LDL Cholesterol, Calc HDL Cholesterol Cholesterol/HDL Ratio Lipase 38 Procalcitonin 0.14 Ur Collection Type Clean Catch Urine Color Yellow Urine Clarity Clear Urine pH 5.5 Ur Specific [place] 1.035 Urine Protein 1+ A Urine Glucose (UA) 4+ A Urine Ketones Trace Urine Blood 2+ A Urine Nitrite Negative Urine Bilirubin Negative Urine Urobilinogen (Auto) Negative Ur Leukocyte Esterase Positive Urine RBC 34 H Urine WBC 123 H Ur Squamous Epith Cells 2 Urine Bacteria Rare Urine Yeast (Budding) Present A Ur Culture Indicated? Yes 03/06/25 03/06/25 03/06/25 00:12 03:40 03:40 WBC 10.7 H D RBC 4.03 L Hgb 12.7 L D Hct 37.5 L MCV 93 MCH 31.5 MCHC 33.9 RDW Std Deviation 44.1 H Plt Count 150 Neut % (Auto) 60 Lymph % (Auto) 21 Carver % (Auto) 17 H Eos % (Auto) 1 Baso % (Auto) 1 Neut # (Auto) 6.5 Lymph # (Auto) 2.2 Carver # (Auto) 1.8 H Eos # (Auto) 0.1 Baso # (Auto) 0.1 Immature Gran # (Auto) 0.02 H Absolute Nucleated RBC 0.00 Immature Gran % 0 Nucleated RBC % 0 Smear Path Review PT INR APTT Sodium 142 Potassium 3.7 D Chloride 110 H Carbon Dioxide 23.1 Anion Gap 9 BUN 11 Creatinine 0.8 Estim Creat Clear Calc 66.4 eGFR > 60 BUN/Creatinine Ratio 14 Glucose 212 H D Calculated Osmolality 288 Lactic Acid Calcium 8.1 L Corrected Calcium 8.4 L Phosphorus 2.1 L Magnesium 1.6 Total Bilirubin 0.7 AST 47 H ALT 18 Alkaline Phosphatase 52 Lactate Dehydrogenase Troponin I 2.776 H* D 2.780 H* 3.132 H* D B-Natriuretic Peptide Total Protein 5.7 Albumin 3.6 D Globulin 2.1 L Albumin/Globulin Ratio 1.7 Triglycerides 76 Cholesterol 125 L LDL Cholesterol, Calc 81 HDL Cholesterol 29 L Cholesterol/HDL Ratio 4.3 Lipase Procalcitonin Ur Collection Type Urine Color Urine Clarity Urine pH Ur Specific [place] Urine Protein Urine Glucose (UA) Urine Ketones Urine Blood Urine Nitrite Urine Bilirubin Urine Urobilinogen (Auto) Ur Leukocyte Esterase Urine RBC Urine WBC Ur Squamous Epith Cells Urine Bacteria Urine Yeast (Budding) Ur Culture Indicated? 03/06/25 03/06/25 07:55 23:43 WBC RBC Hgb Hct MCV MCH MCHC RDW Std Deviation Plt Count Neut % (Auto) Lymph % (Auto) Carver % (Auto) Eos % (Auto) Baso % (Auto) Neut # (Auto) Lymph # (Auto) Carver # (Auto) Eos # (Auto) Baso # (Auto) Immature Gran # (Auto) Absolute Nucleated RBC Immature Gran % Nucleated RBC % Smear Path Review PT INR APTT 34.4 Sodium Potassium Chloride Carbon Dioxide Anion Gap BUN Creatinine Estim Creat Clear Calc eGFR BUN/Creatinine Ratio Glucose Calculated Osmolality Lactic Acid 2.5 H Calcium Corrected Calcium Phosphorus Magnesium Total Bilirubin AST ALT Alkaline Phosphatase Lactate Dehydrogenase Troponin I 2.961 H* B-Natriuretic Peptide Total Protein Albumin Globulin Albumin/Globulin Ratio Triglycerides Cholesterol LDL Cholesterol, Calc HDL Cholesterol Cholesterol/HDL Ratio Lipase Procalcitonin Ur Collection Type Urine Color Urine Clarity Urine pH Ur Specific [place] Urine Protein Urine Glucose (UA) Urine Ketones Urine Blood Urine Nitrite Urine Bilirubin Urine Urobilinogen (Auto) Ur Leukocyte Esterase Urine RBC Urine WBC Ur Squamous Epith Cells Urine Bacteria Urine Yeast (Budding) Ur Culture Indicated? Quality Measures Quality Measures none Advance care planning discussed with:: patient Assessment & Plan Assessment Current Active Medications: Generic Name Dose Route Start Last Admin Trade Name Freq PRN Reason Stop Dose Admin Acetaminophen 650 mg 03/06/25 02:37 Acetaminophen 325 Mg Tablet PO 04/05/25 02:36 Q6H PRN Fever >100.4 or pain 1-3 Hydrocodone Bitart/Acetaminophen 1 tab 03/06/25 02:37 Hydrocodone/Apap 5/325 Tablet PO 03/11/25 02:36 Q4HR PRN PAIN SCALE 4-6 (Moderate Albuterol/Ipratropium 3 ml 03/06/25 03:00 03/06/25 06:23 Albuterol/Ipratropium (Duoneb) Rt Jonelle 3 Ml Nebu INH 04/05/25 02:59 3 ml Q4HRRT SOHA Administration Aspirin 81 mg 03/06/25 09:00 03/06/25 09:47 Aspirin Ec 81 Mg Tabec PO 04/05/25 08:59 Not Given QDAY SOHA Dextrose 25 ml 03/06/25 04:14 Dextrose 50%-Water Inj 50 Ml Syringe IV 04/05/25 04:13 Q15MIN PRN BG 50-70 responsive npo pt Dextrose 50 ml 03/06/25 04:14 Dextrose 50%-Water Inj 50 Ml Syringe IV 04/05/25 04:13 Q15MIN PRN BG <50 OR BG <70 & pt unresponsive Docusate Sodium 100 mg 03/06/25 02:37 Docusate Sod 100 Mg Capsule PO 04/05/25 02:36 QDAY PRN CONSTIPATION Protocol Famotidine 20 mg 03/06/25 09:00 03/06/25 09:18 Famotidine Inj 10 Mg/Ml Vial 2 Ml IVP 04/05/25 08:59 20 mg Q12HR SOHA Administration Glucagon 1 mg 03/06/25 04:14 Glucagon Inj 1 Mg Vial IM Q15MIN PRN BG <70, and no IV access Heparin Sodium/Dextrose 25,000 unit in 250 mls @ 9.798 mls/hr 03/05/25 23:30 03/06/25 09:23 Heparin In D5w Ivpb IV 03/19/25 23:29 16 units/kg/hr .Q24H SOHA 13.064 mls/hr Protocol Titration 12 UNITS/KG/HR Ceftriaxone Sodium/Dextrose 1 gm in 50 mls @ 100 mls/hr 03/06/25 21:00 Rocephin/D5w 1gm Iv Premix IV 03/13/25 20:59 QPM SOHA Lactated Ringer's 1,000 mls @ 75 mls/hr 03/06/25 09:38 03/06/25 09:52 Lactated Ringers IV 03/06/25 17:31 75 mls/hr .[id number] ONE Administration Azithromycin 500 mg/ Sodium 250 mls @ 250 mls/hr 03/06/25 09:41 03/06/25 10:12 Chloride IV 03/13/25 09:40 250 mls/hr QDAY SOHA Administration Insulin Human Lispro 0 unit 03/06/25 07:30 03/06/25 06:45 Insulin Lispro (Admelog) 1 Unit/0.01 Ml Unit SC 04/05/25 07:29 Not Given ACHS SOHA Protocol Ondansetron HCl 4 mg 03/06/25 02:37 Ondansetron Inj 2 Mg/Ml Inj 2 Ml IVP 04/05/25 02:36 Q6H PRN NAUSEA OR VOMITING Protocol Plan 79-year-old male patient with significant history of hypertension diabetes mellitus, dementia, cirrhosis, HLD, DNR selective treatment, for skilled nursing, was brought in for evaluation regarding altered mental status. Patient apparently was noted to be hypoxic, febrile, coughing a lot and having shortness of breath. Admitted for sepsis work up, possible pulmonary (pneumonia) or urinary (UTI) source. #Sepsis, likely 2/2 #Aspiration pneumonia vs. CAP #UTI #Lactic acidosis, resolving Patient brought in on 03/05 from skilled nursing due to worsening mentation, hypoxia, fevers and SOB Patient met 4/4 SIRS criteria at the time by the following: Temperature above 100.4 or below 98.6 (100.9), HR>90 (125), RR>20 or PaCO2<32 (35), WBC above 12 or below 4 (16.9) + source of infection (pneumonia and UTI) Evidence for source of infection is finding of 03/05 UA - (1+ protein, 4+ glucose, 2+ blood, positive LE, 34 RBC, 123 WBC, some bacteria and yeast) and left lower lobe consolidation on 03/05 chest CTA and CTAP Also came in with an initial lactic acid of 4.6 which later down-trended to 2.4 qSOFA rating predicting high-risk mortality if 2 or more of the following criteria met (2/3): SBP 100 or less (not met), RR 22 or more (met), GCS less than 15 (met) In the context of fluid resuscitation, patient was s/p 3.4 L of IV fluid given in the ED Dx: -03/05 UCx ordered, showed ___ -03/05 BCx ordered, showed ___ -03/05 venous doppler of BLE ordered, showed no deep vein thrombosis Rx: -Ceftriaxone 1g IV qD (03/06--) -Azithromycin 500 mg IV qD (03/06--) #Acute hypoxic respiratory failure, likely 2/2 #Aspiration pneumonia vs. CAP #C/f mesenteric ischemia Patient was apparently brought in for hypoxia and shortness of breath with 03/05 admission SpO2 of 93% on 2 L NC Physical exam notable for diffuse expiratory rhonchi and crackles along with a persistent gurgling sound seemingly originating from the upper airway Hypoxia likely 2/2 aspiration pneumonia or CAP 03/05 chest CTA and CTAP showed left lower lobe consolidation but was also notable for mesenteric fat stranding and prominent mesenteric lymphadenopathy (possibly concerning for mesenteric ischemia) Dx: -03/06 CTA ordered to rule out mesenteric ischemia, showed ___ Rx: -Antibiotics as above -Supplemental oxygen as needed -Duoneb q4HRRT -Aspiration precautions -Chest physiotherapy #NSTEMI, Type I vs. Type II 03/05 admission troponin 1.162 Trend: 1.162->1.827->2.776->2.780->3.132->2.961->2.232 Currently favor Type II NSTEMI demand ischemia i/s/o sepsis and acute infection Rx: -Heparin gtt -Aspirin 81 mg PO qD -Trend troponin q6H -Cardiology (Dr. Peace) consulted, appreciate recommendations #Hx of seizures On home valproic acid 250 mg PO BID Rx: -Valproic acid 125 mg IV q6HR #Hypertensive emergency, resolved #Hx of hypertension 03/05 admission BP of 181/121 with altered mentation, troponin elevation, lactic acidosis, and mild transaminitis Currently normotensive Rx: -Continue to monitor BP #Hx of diabetes mellitus (insulin-dependent) Home meds metformin 500 mg BID, sitagliptin 100 mg qD Dx: -03/06 HgbA1c ordered, showed 6.8 Rx: -ISS -Bedside glucose checks #Hx of dementia Patient is nonverbal, GCS 14 at baseline. Failed swallow evaluation. Rx: -Speech therapy referral #Hx of HLD On home fenofibrate 54 mg x 2 PM Dx: -03/06 lipid panel ordered, results WNL (triglycerides 76, cholesterol 125, LDL 81, HDL 29) Rx: -No need to start fenofibrate as patient's triglyceride levels are WNL Health Maintenance: Code status: DNR DVT prophylaxis: Heparin GI prophylaxis: Famotidine Diet: NPO Slade: Yes Supplemental O2: NC Disposition: Tele Patient seen and reviewed with attending Dr. Vogel and senior residen Sourav Christian DO PGY-1
--- NOTE | 2025-03-06 10:54 | ESCONSULT_ITS ---
<Statement entered by Rell Peace MD - 03/08/25 17:10> The patient personally examined evaluated by me along with resident physician PGY 1Dr. Malcolm Martinez patient appears to be stable patient has longstanding history of hypertension diabetes dementia cirrhosis of the liver DNR status came to the hospital shortness with hypoxic respiratory failure sepsis possible pneumonia UTI troponin elevation significant possibly from sepsis type II troponin elevation no need to treat this as a myocardial infarction type I hence anticoagulation will be withheld no need for heparin drip. If he has significant chest pain or EKGs might change manager but for now his appears to be type II myocardial infarction troponin elevation conservative medical management treatment of underlying sepsis and medical problems. Evaluate the patient with resident physician agree with treatment plan recommendation as documented. HPI Data of Consult Requesting Physician: Dwayne Talbot MD Admitting Provider: Dwayne Talbot MD Attending Provider: Dwayne Talbot MD Primary Care Provider: Physician No Primary/Family Consult Narrative Reason for consult: Elevanted Troponin History of present illness: History of present illness: 79-year-old male patient with significant history of hypertension diabetes mellitus, dementia, cirrhosis, HLD, DNR selective treatment, for senior living, was brought in for evaluation regarding altered mental status. Patient apparently was noted to be hypoxic, febrile, coughing a lot and having shortness of breath. Admitted for sepsis work up, possible pulmonary (pneumonia) or urinary (UTI) source. ED course: Vitals: BP 181/112 HR 125 RR 35 T 100.9F O2sat 93% NC 2L Labs: WBC 16.9, PT 12.3 INR 1.2 APTT 26.7 Glucose 301 Lactic acid 4.6 AST 44 LDH 337 Trop 1.162 --> 1.827 --> 2.776, BNP 378, UA +1 protein +4 glucose +2 blood 34 RBC 123 WBC +budding yeast Imaging: EKG done at [facility] CXR pending read Chest CT pending read Head CT pending read CTAP pending read Treatment: Duoneb, heparin, NS, LR, Vancomycin, Ceftriaxone, acetominophen Upon initial evaluation patient is unresponsive and noncommunicative AOx0 GCS 10. He makes no effort to communicate but makes eye contact occasionally. He persistently and loudly gurgles in his upper throat throughout the interview. Upon physical exam patient began screaming the second he was touched by the stethoscope or examiner. All other information is pulled from SNF form or chart review. PMH: HTN, DM, dementia, cirrhosis, HLD PSH: None Allergies: NKDA Social history: No alcohol, tobacco, or drugs cc:: cc: Dwayne Talbot MD Review of Systems Review of Systems Narrative Review of Systems: General: Unable to obtain due to mental status HEENT: Unable to obtain due to mental status Heart: Unable to obtain due to mental status Lungs: Unable to obtain due to mental status Abdomen: Unable to obtain due to mental status Genitourinary: Unable to obtain due to mental status Musculoskeletal: Unable to obtain due to mental status Neurology: Unable to obtain due to mental status ROS otherwise negative except what is mentioned above. Exam Vital Signs Temp Pulse Resp BP Pulse Ox O2 Del Method O2 Flow Rate 98.6 F 78 22 H 127/68 95 Nasal Cannula 2 03/06/25 08:00 03/06/25 08:40 03/06/25 08:40 03/06/25 08:00 03/06/25 08:40 03/06/25 08:00 03/06/25 08:40 Narrative Exam General: A/O x0 (baseline), no acute distress, well-nourished, well-developed Eyes: PERRL, EOMI. Anicteric, vision grossly intact. Ears: No ear pain, no ear discharge, Hearing grossly intact. Nose: No nasal discharge. Mouth/Throat: Moist mucous membranes, no redness, no lesions. Neck: Neck supple, non-tender, no cervical lymphadenopathy. Lungs: bilateral crackles anterior lung francois, No accessory muscle use. Cardio: Normal S1/S2, regular rhythm, no murmurs, no JVD or carotid bruits. Abdomen: Soft, non-tender, no palpable masses, peristalsis present, no guarding or rebound. Extremities: Symmetrical, no significant deformities, no peripheral edema , non-tender, peripheral pulses present. Skin: No rashes, no lesions, warm to touch. Neuro: No focal neurological deficits. Unable to assess mentation. Psych: A&Ox0, unable to assess mentation. Results Labs 03/06/25 03:40 03/06/25 03:40 Labs: Short CBC 03/05/25 03/06/25 Range/Units 20:34 03:40 WBC 16.9 H 10.7 H D (3.8-10.6) Thou/mm3 Hgb 14.9 12.7 L D (13.5-16.0) g/dL Hct 43.9 37.5 L (41.0-53.0) % Plt Count 179 150 (140-440) Thou/mm3 BMP 03/05/25 03/06/25 20:34 03:40 Sodium 139 142 Potassium 4.4 3.7 D Chloride 107 110 H Carbon Dioxide 20.2 23.1 BUN 12 11 Creatinine 1.0 0.8 Glucose 301 H 212 H D Calcium 9.4 8.1 L Cardiac Enzymes 03/05/25 03/05/25 03/06/25 Range/Units 20:34 22:18 00:12 Troponin I 1.162 H* 1.827 H* D 2.776 H* D (0.0-0.045) ng/mL 03/06/25 03/06/25 03/06/25 Range/Units 03:40 03:40 07:55 Troponin I 2.780 H* 3.132 H* D 2.961 H* (0.0-0.045) ng/mL Liver Function 03/05/25 03/06/25 Range/Units 20:34 03:40 Total Bilirubin 1.1 0.7 (0.3-1.2) mg/dL AST 44 H 47 H (0-34) U/L ALT 21 18 (10-49) U/L Alkaline Phosphatase 65 52 (46-116) U/L Albumin 4.2 3.6 D (3.4-4.8) gm/dL Urine 03/05/25 Range/Units 20:30 Urine Color Yellow (Lt Yel-Yel) Urine Clarity Clear (Clear/Hazy) Urine pH 5.5 (5.0-7.0) Ur Specific [place] 1.035 (1.001-1.035) Urine Protein 1+ A (Neg - Trace) Urine Glucose (UA) 4+ A (Negative) Quality Measures Quality Measures none Advance care planning discussed with:: other Medications Home Medications and Allergies Home Medications ?Medication ?Instructions ?Recorded ?Confirmed ?Type acetaminophen 325 mg tablet 650 mg PO Q4H PRN Pain 10/1402/27/19 History (Tylenol) bisacodyl 10 mg rectal suppository 10 mg HI Q24H PRN C onstipation 02/01/19 02/27/19 History (Dulcolax (bisacodyl)) clonidine HCl 0.2 mg tablet 0.2 mg PO QDAY 02/01/19 History fenofibrate 54 mg tablet 54 mg PO QDAY 02/01/1902/27 History glipizide 5 mg tablet (Glucotrol) 5 mg PO BID 02/01/19 02/27/19 History insulin glargine 100 unit/mL (3 15 unit subcut HS Diab etes 02/01/19 02/27/19 History mL) subcutaneous pen (Basaglar KwikPen U-100 Insulin) lactulose 20 gram/30 mL oral 30 ml PO BID 02/01/1906/16 History solution magnesium hydroxide 400 mg/5 mL 30 ml PO Q72H PRN Cons tipation 02/01/19 02/27/19 History oral suspension (Milk of Magnesia) metformin 500 mg tablet 500 mg PO BID 02/01/1902/27 History multivitamin (Multiple Vitamins 1 tab PO QDAY 02/01/19 02/27/19 History tablet) peg [id number] 1 1 drp ophthalmic (eye) QDAY PRN 02/01/19 02/27/19 History %-0.2 %-0.2 % eye drops Dry Eyes (Artificial Tears ([id number])) perphenazine-amitriptyline 2 mg-10 0.5 tab PO HS 02/0102/27/19 History mg tablet sitagliptin phosphate 100 mg 100 mg PO QDAY Diabetes 1 02/27/19 History tablet (Januvia) spironolactone 25 mg tablet 25 mg PO BID 02/01/1906/16 History (Aldactone) Allergies Allergy/AdvReac Type Severity Reaction Status Date / Time No Known Allergies Allergy Verified 03/05/25 19:57 Visit Medications Acetaminophen (Acetaminophen 325 Mg Tablet) 650 mg PO Q6H PRN PRN Reason: Fever >100.4 or pain 1-3 Stop: 04/05/25 02:36 Hydrocodone Bitart/Acetaminophen (Hydrocodone/Apap 5/325 Tablet) 1 tab PO Q4HR PRN PRN Reason: PAIN SCALE 4-6 (Moderate Stop: 03/11/25 02:36 Albuterol/Ipratropium (Albuterol/Ipratropium (Duoneb) Rt Jonelle 3 Ml Nebu) 3 ml INH Q4HRRT [facility] Stop: 04/05/25 02:59 Last Admin: 03/06/25 06:23 Dose: 3 ml Aspirin (Aspirin Ec 81 Mg Tabec) 81 mg PO QDAY SOHA Stop: 04/05/25 08:59 Last Admin: 03/06/25 09:47 Dose: Not Given Dextrose (Dextrose 50%-Water Inj 50 Ml Syringe) 25 ml IV Q15MIN PRN PRN Reason: BG 50-70 responsive npo pt Stop: 04/05/25 04:13 Dextrose (Dextrose 50%-Water Inj 50 Ml Syringe) 50 ml IV Q15MIN PRN PRN Reason: BG <50 OR BG <70 & pt unresponsive Stop: 04/05/25 04:13 Docusate Sodium (Docusate Sod 100 Mg Capsule) 100 mg PO QDAY PRN; Protocol PRN Reason: CONSTIPATION Stop: 04/05/25 02:36 Famotidine (Famotidine Inj 10 Mg/Ml Vial 2 Ml) 20 mg IVP Q12HR SOHA Stop: 04/05/25 08:59 Last Admin: 03/06/25 09:18 Dose: 20 mg Glucagon (Glucagon Inj 1 Mg Vial) 1 mg IM Q15MIN PRN PRN Reason: BG <70, and no IV access Heparin Sodium/Dextrose (Heparin In D5w Ivpb) 25,000 unit in 250 mls @ 9.798 mls/hr IV .Q24H SOHA; Protocol Stop: 03/19/25 23:29 Last Titration: 03/06/25 09:23 Dose: 16 units/kg/hr, 13.064 mls/hr Ceftriaxone Sodium/Dextrose (Rocephin/D5w 1gm Iv Premix) 1 gm in 50 mls @ 100 mls/hr IV QPM [facility] Stop: 03/13/25 20:59 Lactated Ringer's (Lactated Ringers) 1,000 mls @ 75 mls/hr IV .[id number] ONE Stop: 03/06/25 17:31 Last Admin: 03/06/25 09:52 Dose: 75 mls/hr Azithromycin 500 mg/ Sodium (Chloride) 250 mls @ 250 mls/hr IV QDAY [facility] Stop: 03/13/25 09:40 Last Admin: 03/06/25 10:12 Dose: 250 mls/hr Insulin Human Lispro (Insulin Lispro (Admelog) 1 Unit/0.01 Ml Unit) 0 unit SC ACHS [facility]; Protocol Stop: 04/05/25 07:29 Last Admin: 03/06/25 06:45 Dose: Not Given Ondansetron HCl (Ondansetron Inj 2 Mg/Ml Inj 2 Ml) 4 mg IVP Q6H PRN; Protocol PRN Reason: NAUSEA OR VOMITING Stop: 04/05/25 02:36 Discontinued Medications Acetylcysteine (Acetylcysteine Rt Jonelle 10% 4 Ml Nebu) 3 ml INH X1 ONE Stop: 03/06/25 09:16 Aspirin (Aspirin 325 Mg Tablet) 325 mg PO X1 ONE Stop: 03/05/25 23:22 Last Admin: 03/06/25 00:06 Dose: Not Given Atorvastatin Calcium (Atorvastatin Calcium 10 Mg Tablet) 80 mg PO X1 ONE Stop: 03/05/25 23:22 Last Admin: 03/06/25 00:07 Dose: Not Given Clopidogrel Bisulfate (Clopidogrel Bisulfate 75 Mg Tablet) 75 mg PO X1 ONE Stop: 03/05/25 23:22 Last Admin: 03/06/25 00:07 Dose: Not Given Heparin Sodium (Porcine) (Heparin Sod Inj 5000 Unit/Ml Vial) 4,000 unit IV X1 ONE; Protocol Stop: 03/05/25 23:22 Last Admin: 03/06/25 01:01 Dose: Not Given Heparin Sodium (Porcine) (Heparin Sod Inj 5000 Unit/Ml Vial) 4,000 unit IVP X1 ONE Stop: 03/06/25 08:53 Last Admin: 03/06/25 09:19 Dose: 4,000 unit Lactated Ringer's (Lactated Ringers) 1,000 mls @ 999 mls/hr IV .Q1H1M ONE Stop: 03/05/25 21:18 Last Infusion: 03/05/25 21:32 Dose: Infused Ceftriaxone Sodium/Dextrose (Rocephin/D5w 1gm Iv Premix) 1 gm in 50 mls @ 100 mls/hr IV X1 ONE Stop: 03/05/25 20:47 Last Infusion: 03/05/25 21:06 Dose: Infused Acetaminophen (Ofirmev Inj) 1,000 mg in 100 mls @ 250 mls/hr IV X1 ONE Stop: 03/05/25 20:42 Last Infusion: 03/05/25 20:57 Dose: Infused Lactated Ringer's (Lactated Ringers) 1,000 mls @ 125 mls/hr IV .Q8H ONE Stop: 03/06/25 05:56 Last Admin: 03/05/25 23:26 Dose: 125 mls/hr Vancomycin HCl 1,000 mg/ (Sodium Chloride) 250 mls @ 150 mls/hr IV X1 ONE Stop: 03/05/25 23:52 Last Infusion: 03/06/25 01:05 Dose: Infused Sodium Chloride (Ns) 2,000 mls @ 999 mls/hr IV .Q2H1M ONE Stop: 03/06/25 01:25 Last Infusion: 03/06/25 03:21 Dose: Infused Lactated Ringer's (Lactated Ringers) 1,000 mls @ 24.3 mls/hr IV .Q24H ONE Stop: 03/06/25 21:56 Last Admin: 03/06/25 06:51 Dose: 24.3 mls/hr Sodium Chloride (Sodium Chloride Rt 10% 15 Ml Nebu) 5 ml INH X1 ONE Stop: 03/06/25 02:38 Last Admin: 03/06/25 03:31 Dose: Not Given Assessment & Plan Plan 79-year-old M with PMH of HTN, DM, dementia, cirrhosis, HLD, DNR selective treatment was brought in for evaluation from nursing for altered mental status. Admitted for sepsis. #NSTEMI Type II #Elevated troponin Troponin 1.162 --> 3.132 --> 2.232. Elevation likely due to demand ischemia resulting from sepsis. No DVT on venous doppler. Plan: - Trend troponin - Stop heparin - Treat underlying cause (sepsis) as per primary team #Hx of hypertension Plan: - Trend BP #Septic encephalopathy 2/2 #UTI or #Pneumonia CAP vs atypicals #Lactic acidosis - resolving #Hx of diabetes mellitus (insulin dependent) #Hx of dementia #Hx of cirrhosis #Hx of HLD This case was discussed with my attending physician, Dr. Peace. Familia Martinez, PGY1
[2025-03-06] MEDS: ACETYLCYSTEINE RT SOL 10% 4 ML NEBU 3 ML INH (11:25)
[2025-03-06 13:06] LABS: Lactate (Lactic Acid) 2.4 mMol/L (0.4-2.0)
[2025-03-06 13:19] LABS: Glucose Estimated Average 148 mg/dL (80-131); Hemoglobin A1C 6.8 % Hgb (4.8-6.0)
[2025-03-06 13:40] LABS: Troponin I 2.232 ng/mL (0.0-0.045)
--- NOTE | 2025-03-06 14:28 | PC.SS ---
Roving [employer]er (ARDEN) Aster met with the patient at the bedside to complete an initial assessment and discuss a discharge plan. However, the patient is confused and unable to speak. SW called the patient's emergency contacts, daughter, Amie, the phone is disconnected, and the patient's brother, Kamran, , did not answer the phone. Per the chart review, the patient comes from [facility]. ARDEN called the coordinator, Sade, who reported that the patient is a long-term resident and can return. Per Sade, the patient is confused and nonverbal at baseline. SS to follow up with the patient's brother on 03/07/2025 to complete an initial assessment. Discharge plan: SNF Discharge rounds: Patient is on IV abx.
[2025-03-06 16:01] LABS: Reflex Lactate? Y
[2025-03-06 16:30] LABS: Partial Thromboplastin Time 50.4 Seconds (22.0-36.0)
[2025-03-06 16:33] LABS: Lactic Acid, 3 HR 2.1 mMol/L (0.4-2.0)
[2025-03-06] MEDS: Heparin/D5w 25K 250 ML Ivpb 25,000 UNIT/250 ML BAG 13.064 UNIT IV (19:59)
[2025-03-06] MEDS: cefTRIAXone/D5w 1gm IV premix 1 GM/50 ML BAG IV (20:41)
[2025-03-07] VITALS (15 sets, daily range): BP systolic 116–159; BP diastolic 75–98; PULSE 75–100; RESP 18–28; TEMP 36.8–37.7; O2SAT 93–99; BMI 36.3
[2025-03-07 00:25] LABS: Partial Thromboplastin Time 35.6 Seconds (22.0-36.0)
[2025-03-07] MEDS: ACETYLCYSTEINE RT SOL 10% 4 ML NEBU 3 ML INH ×4 (01:42→19:44)
[2025-03-07] MEDS: ALBUTEROL/IPRATROPIUM (Duoneb) RT SOL 3 ML NEBU INH ×7 (01:43→23:34)
[2025-03-07 05:07] LABS: Basophils # (Auto) 0.1 Thou/mm3 (0.0-0.2); Basophils % (Auto) 1 % (0-2.5); Eosinophils # (Auto) 0.2 Thou/mm3 (0.0-0.5); Eosinophils % (Auto) 2 % (0-10); Hematocrit 38.4 % (41.0-53.0); Hemoglobin 13.3 g/dL (13.5-16.0); Immature Granulocytes Auto 0.02 Thou/mm3 (0.00-0.00); Lymphocytes # (Auto) 2.1 Thou/mm3 (1.0-4.8); Lymphocytes % (Auto) 24 % (10-50); Mean Corpuscular HGB Conc 34.6 g/dl (31.0-37.0); Mean Corpuscular Hemoglobin 31.7 pg (25.0-35.0); Mean Corpuscular Volume 92 fL (80-100); Monocytes # (Auto) 1.7 Thou/mm3 (0.0-0.8); Monocytes % (Auto) 19 % (0-12); Neutrophils # (Auto) 4.8 Thou/mm3 (1.8-7.7); Neutrophils % (Auto) 54 % (37-80); Nucleated Red Blood Cell # 0.00 Thou/mm3 (0.00-0.00); Nucleated Red Blood Cell % 0 /100 WBC (0); Platelet Count 147 Thou/mm3 (140-440); RDW Standard Deviation 43.2 fL (35.1-43.9); Red Blood Count 4.19 Miln/mm3 (4.50-5.90); White Blood Count 8.8 Thou/mm3 (3.8-10.6)
[2025-03-07 05:19] LABS: Alanine Aminotransferase 19 U/L (10-49); Albumin, Serum 3.7 gm/dL (3.4-4.8); Albumin/Globulin Ratio 1.6 (1.2-2.2); Alkaline Phosphatase 52 U/L (46-116); Anion Gap 10 (7-16); Aspartate Amino Transferase 37 U/L (0-34); BUN/Creatinine Ratio 11 Ratio (12-20); Bilirubin,Total 0.8 mg/dL (0.3-1.2); Blood Urea Nitrogen 9 mg/dL (9-23); Calcium 8.6 mg/dL (8.3-10.6); Calcium (Corrected) 8.8 mg/dL (8.5-10.1); Carbon Dioxide 24.4 mMol/L (20.0-31.0); Chloride 108 mMol/L (98-107); Creatinine (Component) 0.8 mg/dL (0.6-1.3); Estimated Creatinine Clearance 67.2 mL/min (>60); Globulin 2.3 gm/dL (2.3-3.5); Glucose 144 mg/dL (74-106); Magnesium 1.6 mg/dL (1.6-2.6); Osmolality,Calculated 284 (275-295); Phosphorous 2.5 mg/dL (2.4-5.1); Potassium 3.6 mMol/L (3.4-5.1); Sodium 142 mMol/L (136-145); Total Protein 6.0 gm/dL (5.7-8.2); eGFR > 60 See Note
[2025-03-07] MEDS: FAMOTIDINE INJ 10 MG/ML VIAL 2 ML 20 MG IVP ×2 (08:23→20:06)
[2025-03-07] MEDS: AZITHROMYCIN INJ 500 MG in SODIUM CHLORIDE 0.9% 250 ML 250 ML 250 MG IV (08:23)
--- NOTE | 2025-03-07 08:33 | ESPR_ITS ---
<Statement entered by Rell Peace MD - 03/08/25 17:29> I personally examined evaluated this patient was admitted to the hospital with sepsis and doing fairly well not have any chest pain shortness breath somewhat more alert than yesterday not lethargic not complaining any chest pain troponin level continues to be slightly slightly high but coming down appears to be type II troponin not treated as myocardial infarction for now might consider getting cardiac echo later on to assess left ventricle function if is not performed. Evaluated patient with resident physician PGY [address] DR. LIMA, agree with treatment plan recommendation as documented Documentation for date of: 03/07/25 Subjective Subjective Interval history: Patient seen and assessed in hospital bed on 2 L supplemental oxygen. Patient is unable to verbalize and noncommunicative secondary to acutely ill status and underlying chronic dementia which has been ongoing for several years. Cardiology was consulted as the patient had elevated troponin which have peaked and downtrended without any concerning EKG changes noted. Will continue monitoring alongside primary hospitalist team but from cardiology standpoint there is no need for any immediate intervention. Exam Vital Signs Temp Pulse Resp BP Pulse Ox O2 Del Method O2 Flow Rate 98.2 F 88 27 H 142/83 H 99 Nasal Cannula 2 03/07/25 07:38 03/07/25 07:38 03/07/25 07:38 03/07/25 07:38 03/07/25 07:38 03/07/25 07:38 03/07/25 07:38 Narrative Exam Physical Exam: GENERAL: Awake, does not answer questions appropriately, appears stated age HEENT: Eyes closed. NC/AT. Moist mucosa. PERRLA CARDIO: Heart RRR, no obvious murmurs, no JVD. PULM: Bilateral crackles auscultated, noncardiac without any wheezes/rales or rhonchi, on 2 L nasal cannula GI: Abdomen soft but diffusely tender to palpation on all 4 quadrants, unable to assess for rebound or guarding due to diffuse tenderness SKIN/MSK/EXT: Right heel pressure ulcer noted. No discoloration/rashes/edema/amputations noted. +Pedal pulses present B/L. NEURO: Oriented x0, no focal neurologic deficits noted Objective Labs 03/07/25 04:15 03/07/25 04:15 Labs: Laboratory Results - last 24 hr 03/06/25 03/06/2503/06/25 07:55 12:48 15:13 WBC RBC Hgb Hct MCV MCH MCHC RDW Std Deviation Plt Count Neut % (Auto) Lymph % (Auto) [place] % (Auto) Eos % (Auto) Baso % (Auto) Neut # (Auto) Lymph # (Auto) [place] # (Auto) Eos # (Auto) Baso # (Auto) Immature Gran # (Auto) Absolute Nucleated RBC Immature Gran % Nucleated RBC % APTT 34.4 50.4 H D Sodium Potassium Chloride Carbon Dioxide Anion Gap BUN Creatinine Estim Creat Clear Calc eGFR BUN/Creatinine Ratio Glucose Estimated Ave Glu mg/dL 148 H Hemoglobin A1c 6.8 H Calculated Osmolality Lactic Acid 2.4 H Calcium Corrected Calcium Phosphorus Magnesium Total Bilirubin AST ALT Alkaline Phosphatase Troponin I 2.961 H* 2.232 H* D Total Protein Albumin Globulin Albumin/Globulin Ratio 03/06/25 03/06/25 03/07/25 16:17 23:40 04:15 WBC 8.8 RBC 4.19 L Hgb 13.3 L Hct 38.4 L MCV 92 MCH 31.7 MCHC 34.6 RDW Std Deviation 43.2 Plt Count 147 Neut % (Auto) 54 Lymph % (Auto) 24 [place] % (Auto) 19 H Eos % (Auto) 2 Baso % (Auto) 1 Neut # (Auto) 4.8 Lymph # (Auto) 2.1 [place] # (Auto) 1.7 H Eos # (Auto) 0.2 Baso # (Auto) 0.1 Immature Gran # (Auto) 0.02 H Absolute Nucleated RBC 0.00 Immature Gran % 0 Nucleated RBC % 0 APTT 35.6 D Sodium 142 Potassium 3.6 Chloride 108 H Carbon Dioxide 24.4 Anion Gap 10 BUN 9 Creatinine 0.8 Estim Creat Clear Calc 67.2 eGFR > 60 BUN/Creatinine Ratio 11 L Glucose [address] Glu mg/dL Hemoglobin A1c Calculated Osmolality 284 Lactic Acid 2.1 H Calcium 8.6 Corrected Calcium 8.8 Phosphorus 2.5 Magnesium 1.6 Total Bilirubin 0.8 AST 37 H ALT 19 Alkaline Phosphatase 52 Troponin I Total Protein 6.0 Albumin 3.7 Globulin 2.3 Albumin/Globulin Ratio 1.6 Quality Measures Quality Measures none Advance care planning discussed with:: other Assessment & Plan Assessment Current Active Medications: Generic Name Dose Route Start Last Admin Trade Name Freq PRN Reason Stop Dose Admin Acetaminophen 650 mg 03/06/25 02:37 Acetaminophen 325 Mg Tablet PO 04/05/25 02:36 Q6H PRN Fever >100.4 or pain 1-3 Hydrocodone Bitart/Acetaminophen 1 tab 03/06/25 02:37 Hydrocodone/Apap 5/325 Tablet PO 03/11/25 02:36 Q4HR PRN PAIN SCALE 4-6 (Moderate Acetylcysteine 3 ml 03/07/25 01:00 03/07/25 06:47 Acetylcysteine Rt Jonelle 10% 4 Ml Nebu INH 04/06/25 00:59 3 ml Q6HRRT [facility] Administration Albuterol/Ipratropium 3 ml 03/06/25 03:00 03/07/25 06:48 Albuterol/Ipratropium (Duoneb) Rt Jonelle 3 Ml Nebu INH 04/05/25 02:59 3 ml Q4HRRT SOHA Administration Aspirin 81 mg 03/06/25 09:00 03/07/25 08:18 Aspirin Ec 81 Mg Tabec PO 04/05/25 08:59 Not Given QDAY [facility] Dextrose 25 ml 03/06/25 04:14 Dextrose 50%-Water Inj 50 Ml Syringe IV 04/05/25 04:13 Q15MIN PRN BG 50-70 responsive npo pt Dextrose 50 ml 03/06/25 04:14 Dextrose 50%-Water Inj 50 Ml Syringe IV 04/05/25 04:13 Q15MIN PRN BG <50 OR BG <70 & pt unresponsive Docusate Sodium 100 mg 03/06/25 02:37 Docusate Sod 100 Mg Capsule PO 04/05/25 02:36 QDAY PRN CONSTIPATION Protocol Famotidine 20 mg 03/06/25 09:00 03/07/25 08:23 Famotidine Inj 10 Mg/Ml Vial 2 Ml IVP 04/05/25 08:59 20 mg Q12HR SOHA Administration Glucagon 1 mg 03/06/25 04:14 Glucagon Inj 1 Mg Vial IM Q15MIN PRN BG <70, and no IV access Ceftriaxone Sodium/Dextrose 1 gm in 50 mls @ 100 mls/hr 03/06/25 21:00 03/06/25 20:41 Rocephin/D5w 1gm Iv Premix IV 03/13/25 20:59 100 mls/hr QPM [facility] Administration Azithromycin 500 mg/ Sodium 250 mls @ 250 mls/hr 03/06/25 09:41 03/07/25 08:23 Chloride IV 03/13/25 09:40 250 mls/hr QDAY [facility] Administration Valproic Acid 125 mg/ Sodium 101.25 mls @ 101.25 mls/hr 03/06/25 12:00 03/07/25 05:35 Chloride IV 04/05/25 11:59 101.25 mls/hr Q6HR S[facility] Administration Protocol Potassium Chloride 10 meq in 100 mls @ 100 mls/hr 03/07/25 08:00 Kcl Ivpb IV 03/07/25 11:59 Q1H [facility] Insulin Human Lispro 0 unit 03/06/25 07:30 03/07/25 07:36 Insulin Lispro (Admelog) 1 Unit/0.01 Ml Unit SC 04/05/25 07:29 Not Given ACHS [facility] Protocol Ondansetron HCl 4 mg 03/06/25 02:37 Ondansetron Inj 2 Mg/Ml Inj 2 Ml IVP 04/05/25 02:36 Q6H PRN NAUSEA OR VOMITING Protocol Plan 79-year-old M with PMH of HTN, DM, dementia, cirrhosis, HLD, DNR selective treatment was brought in for evaluation from nursing for altered mental status. Admitted for sepsis. #NSTEMI Type II #Elevated troponin As above, unable to obtain symptoms that the patient is currently having Troponin 1.162 --> 3.132 --> 2.232; likely due to demand ischemia resulting from sepsis. No DVT on venous doppler Plan: Stop trending troponin Treat underlying cause of demand ischemia #Hypertension #Hypertensive emergency Currently normotensive blood presented with hypertensive urgency/emergency with elevated troponin Patient appears to be on multiple antihypertensive medications at home including clonidine 0.2 mg p.o. daily, spironolactone 25 mg p.o. twice daily Plan: Monitor blood pressure Consider starting MARC/ARB if patient is hypertensive #Septic encephalopathy 2/2 #UTI or #Pneumonia CAP #Lactic acidosis - resolving #Insulin-dependent type 2 diabetes #Dementia #Cirrhosis #Hyperlipidemia Rest of medical problems to be managed by primary hospitalist team Patient seen and assessed with attending Dr. Kobi Lima, DO PGY-2 Internal Medicine - GME
[2025-03-07] MEDS: POTASSIUM CHL 10 mEq IVPB 10 MEQ/100 ML BAG 100 MEQ IV ×4 (08:39→11:45)
[2025-03-07 08:53] LABS: Lactate (Lactic Acid) 3.9 mMol/L (0.4-2.0)
--- NOTE | 2025-03-07 09:11 | PC.SS ---
Rounding: On IV ABX, DC plan back to [facility] when ready
--- NOTE | 2025-03-07 09:17 | XR_ITS ---
Examination: CTA abdomen with intravenous contrast CTA pelvis with intravenous contrast 2-D sagittal reconstructions. 2-D coronal reconstructions. 3-D reconstructions. Date and time of exam: March 07, 2025, 1651 hours INDICATIONS: Lactic acidosis, extensive edema in the mesentery including edema surrounding the superior mesenteric vein on CT abdomen/pelvis without contrast March 06, 2025 CTDI: vol (mGy): 36.9 DLP: (mGycm): 1004 Technique: Multiple CTA 1.25 mm axial sections of the abdomen pelvis have been obtained. 2-D sagittal and coronal reconstructions have been obtained. 3-D reconstructions have been obtained. 3D postprocessing including maximum intensity projection images Low dose protocols were performed. One or more of the following dose reduction techniques were used; automated exposure control, adjustment of the mA and/or KV according to patient size, use of iterative reconstruction technique. Findings: Bibasilar pneumonia with small bilateral pleural effusions No focal liver lesion No gallstones 30 mm splenic lesion There is wall thickening involving the common bile duct coronal image 63 No pancreatic mass Normal adrenal glands Perinephric stranding Again noted extensive edema in the mesentery including surrounding the superior mesenteric vein Findings are suspicious for thrombus in the superior mesenteric vein and portal veins No bowel obstruction Negative for free air Urinary bladder wall thickening Moderate prostatomegaly Large fat-containing inguinal hernias IMPRESSION: Bibasilar pneumonia Again noted extensive edema in the mesenteric, findings are suspicious for thrombus in the mesenteric and portal veins Recommend abdominal sonography follow-up with specific attention to the superior mesenteric vein and portal veins and branches
--- NOTE | 2025-03-07 09:35 | PCS.ST ---
Swallow Evaluation completed. See report for details. Not safe for PO diet. Recommend NPO except meds in puree for now. Consider MBSS. Baseline dysphagia. Possibly aspiration.
--- NOTE | 2025-03-07 09:58 | ESPR_ITS ---
<Statement entered by Gume Vogel MD - 03/21/25 15:17> I reviewed above note and agree with findings and plans. I have also personally examined the patient with medicine team and went over assessment and plan with medical team including machine learning intern and resident physician. <Statement entered by Chiquis Goldberg MD - 03/08/25 07:06> Patient was seen and examined by me personally. I have directly supervised and reviewed documentation by the team resident and agree with its findings with any exceptions or additional findings as below. Plan of care was discussed with the attending, Dr. Vogel. Chiquis Goldberg, PGY-3 Documentation for date of: 03/07/25 Subjective Subjective Interval history: No overnight events. Patient was examined at bedside; he appears to be in NAD and was also discovered to not be entirely nonverbal as he was able to verbalize the word yes and shows understanding by being able to deny having abdominal pain when inquired by shaking his head. Vitals/labs today significant for BP 142/83, RR 27, WBC 10.7->8.8, Hgb 12.7->13.3, potassium 3.6, lactic acid 2.5- >3.9. Physical exam notable for continued gargling noises and diffuse bilateral rhonchi upon auscultation of anterior lung francois but was otherwise benign and unremarkable. Due to up-trend in lactic acid, a CTAP has been ordered to rule out any mesenteric ischemia. Should worrisome findings result from CTAP, General Surgery (Dr. Hernández) will be consulted. Patient's troponin down-trended yesterday so his heparin gtt and aspirin have been discontinued. 03/06 sputum culture showed 4+ WBC, 3+ GPC, 2+ GNR, 10-25 epithelial cells. 03/05 BCx showed NG24HR but UCx is still pending. The idea of starting metronidazole was considered for anaerobic coverage due to concern for aspiration pneumonia but patient's leukocytosis is down-trending and he seems to be improving so it was decided to keep his antibiotic regimen the same (Rocephin + azithromycin). Patient also failed his swallow evaluation and, as recommended by speech therapy, a modified barium swallow has been ordered with patient placed on NPO status. Overall, patient seems to be clinically improving. Exam Vital Signs Temp Pulse Resp BP Pulse Ox O2 Del Method O2 Flow Rate 98.2 F 98 24 H 142/83 H 96 Nasal Cannula 2 03/07/25 07:38 03/07/25 09:54 03/07/25 09:54 03/07/25 07:38 03/07/25 09:54 03/07/25 07:38 03/07/25 09:54 Narrative Exam GENERAL APPEARANCE: AOx0 (baseline) but seems able to understand speech. C onstantly gargling in his upper throat. In some distress, no cyanosis, pallor, or diaphoresis. HEENT: Normocephalic atraumatic, no facial trauma, neck is supple. Lids/conjunctiva normal. Mucous membranes moist, nares normal, lips/teeth normal uvula midline without oral pharyngeal erythema, exudate or swelling TMs normal bilaterally. No lymphangitis/lymphedema. CARDIAC: Difficult to auscultate due to constant gargling by patient. T achycardic, S1+S2 heard. No murmurs, rubs, or gallops noted RESPIRATORY: Persistent gargling/gurgling noise, expiratory rhonchi and crackles on auscultation of anterior lung francois. No rales, tripod positioning, or accessory muscle use. ABDOMINAL: Patient screamed upon lifting of shirt, and also upon palpation of the abdomen. NBS. Soft. No evidence of fluid wave. No pulsatile masses on exam, rebound tenderness, Kwon sign or pain over Mcburney's point. DERM: Right heel ulcer. Warm, pink and dry. No rashes, dermatoses or petechiae. NEUROLOGICAL: Unable to be assessed as patient does not follow commands Objective Labs 03/07/25 04:15 03/07/25 04:15 Labs: Laboratory Results - last 24 hr 03/06/25 03/06/25 03/06/25 12:48 15:13 16:17 WBC RBC Hgb Hct MCV MCH MCHC RDW Std Deviation Plt Count Neut % (Auto) Lymph % (Auto) Lea % (Auto) Eos % (Auto) Baso % (Auto) Neut # (Auto) Lymph # (Auto) [place] # (Auto) Eos # (Auto) Baso # (Auto) Immature Gran # (Auto) Absolute Nucleated RBC Immature Gran % Nucleated RBC % APTT 50.4 H D Sodium Potassium Chloride Carbon Dioxide Anion Gap BUN Creatinine Estim Creat Clear Calc eGFR BUN/Creatinine Ratio Glucose Estimated Ave Glu mg/dL 148 H Hemoglobin A1c 6.8 H Calculated Osmolality Lactic Acid 2.4 H 2.1 H Calcium Corrected Calcium Phosphorus Magnesium Total Bilirubin AST ALT Alkaline Phosphatase Troponin I 2.232 H* D Total Protein Albumin Globulin Albumin/Globulin Ratio 03/06/25 03/07/25 03/07/25 23:40 04:15 08:40 WBC 8.8 RBC 4.19 L Hgb 13.3 L Hct 38.4 L MCV 92 MCH 31.7 MCHC 34.6 RDW Std Deviation 43.2 Plt Count 147 Neut % (Auto) 54 Lymph % (Auto) 24 Lea % (Auto) 19 H Eos % (Auto) 2 Baso % (Auto) 1 Neut # (Auto) 4.8 Lymph # (Auto) 2.1 Lea # (Auto) 1.7 H Eos # (Auto) 0.2 Baso # (Auto) 0.1 Immature Gran # (Auto) 0.02 H Absolute Nucleated RBC 0.00 Immature Gran % 0 Nucleated RBC % 0 APTT 35.6 D Sodium 142 Potassium 3.6 Chloride 108 H Carbon Dioxide 24.4 Anion Gap 10 BUN 9 Creatinine 0.8 Estim Creat Clear Calc 67.2 eGFR > 60 BUN/Creatinine Ratio 11 L Glucose [address] Glu mg/dL Hemoglobin A1c Calculated Osmolality 284 Lactic Acid 3.9 H Calcium 8.6 Corrected Calcium 8.8 Phosphorus 2.5 Magnesium 1.6 Total Bilirubin 0.8 AST 37 H ALT 19 Alkaline Phosphatase 52 Troponin I Total Protein 6.0 Albumin 3.7 Globulin 2.3 Albumin/Globulin Ratio 1.6 Quality Measures Quality Measures none Advance care planning discussed with:: patient Assessment & Plan Assessment Current Active Medications: Generic Name Dose Route Start Last Admin Trade Name Freq PRN Reason Stop Dose Admin Acetaminophen 650 mg 03/06/25 02:37 Acetaminophen 325 Mg Tablet PO 04/05/25 02:36 Q6H PRN Fever >100.4 or pain 1-3 Hydrocodone Bitart/Acetaminophen 1 tab 03/06/25 02:37 Hydrocodone/Apap 5/325 Tablet PO 03/11/25 02:36 Q4HR PRN PAIN SCALE 4-6 (Moderate Acetylcysteine 3 ml 03/07/25 01:00 03/07/25 06:47 Acetylcysteine Rt Jonelle 10% 4 Ml Nebu INH 04/06/25 00:59 3 ml Q6HRRT SOHA Administration Albuterol/Ipratropium 3 ml 03/06/25 03:00 03/07/25 09:53 Albuterol/Ipratropium (Duoneb) Rt Jonelle 3 Ml Nebu INH 04/05/25 02:59 3 ml Q4HRRT SOHA Administration Dextrose 25 ml 03/06/25 04:14 Dextrose 50%-Water Inj 50 Ml Syringe IV 04/05/25 04:13 Q15MIN PRN BG 50-70 responsive npo pt Dextrose 50 ml 03/06/25 04:14 Dextrose 50%-Water Inj 50 Ml Syringe IV 04/05/25 04:13 Q15MIN PRN BG <50 OR BG <70 & pt unresponsive Docusate Sodium 100 mg 03/06/25 02:37 Docusate Sod 100 Mg Capsule PO 04/05/25 02:36 QDAY PRN CONSTIPATION Protocol Famotidine 20 mg 03/06/25 09:00 03/07/25 08:23 Famotidine Inj 10 Mg/Ml Vial 2 Ml IVP 04/05/25 08:59 20 mg Q12HR SOHA Administration Glucagon 1 mg 03/06/25 04:14 Glucagon Inj 1 Mg Vial IM Q15MIN PRN BG <70, and no IV access Ceftriaxone Sodium/Dextrose 1 gm in 50 mls @ 100 mls/hr 03/06/25 21:00 03/06/25 20:41 Rocephin/D5w 1gm Iv Premix IV 03/13/25 20:59 100 mls/hr QPM SOHA Administration Azithromycin 500 mg/ Sodium 250 mls @ 250 mls/hr 03/06/25 09:41 03/07/25 08:23 Chloride IV 03/13/25 09:40 250 mls/hr QDAY SOHA Administration Valproic Acid 125 mg/ Sodium 101.25 mls @ 101.25 mls/hr 03/06/25 12:00 03/07/25 05:35 Chloride IV 04/05/25 11:59 101.25 mls/hr Q6HR SOHA Administration Protocol Potassium Chloride 10 meq in 100 mls @ 100 mls/hr 03/07/25 08:00 03/07/25 09:42 Kcl Ivpb IV 03/07/25 11:59 100 mls/hr Q1H SOHA Administration Insulin Human Lispro 0 unit 03/06/25 07:30 03/07/25 07:36 Insulin Lispro (Admelog) 1 Unit/0.01 Ml Unit SC 04/05/25 07:29 Not Given ACHS SOHA Protocol Ondansetron HCl 4 mg 03/06/25 02:37 Ondansetron Inj 2 Mg/Ml Inj 2 Ml IVP 04/05/25 02:36 Q6H PRN NAUSEA OR VOMITING Protocol Plan 79-year-old male patient with significant history of hypertension diabetes mellitus, dementia, cirrhosis, HLD, DNR selective treatment, for assisted, was brought in for evaluation regarding altered mental status. Patient apparently was noted to be hypoxic, febrile, coughing a lot and having shortness of breath. Admitted for sepsis work up, possible pulmonary (pneumonia) or urinary (UTI) source. #Sepsis, likely 2/2 #Aspiration pneumonia vs. CAP #UTI Patient brought in on 03/05 from assisted due to worsening mentation, hypoxia, fevers and SOB Patient met 4/4 SIRS criteria at the time by the following: Temperature above 100.4 or below 98.6 (100.9), HR>90 (125), RR>20 or PaCO2<32 (35), WBC above 12 or below 4 (16.9) + source of infection (pneumonia and UTI) Evidence for source of infection is finding of 03/05 UA - (1+ protein, 4+ glucose, 2+ blood, positive LE, 34 RBC, 123 WBC, some bacteria and yeast) and left lower lobe consolidation on 03/05 chest CTA and CTAP qSOFA rating predicting high-risk mortality if 2 or more of the following criteria met (2/3): SBP 100 or less (not met), RR 22 or more (met), GCS less than 15 (met) In the context of fluid resuscitation, patient was s/p 3.4 L of IV fluid given in the ED Dx: -03/05 UCx ordered, showed ___ -03/05 BCx ordered, showed NG24HR -03/05 venous doppler of BLE ordered, showed no deep vein thrombosis -03/06 sputum GS showed 4+ WBC, 3+ GPC, 2+ GNR, 10-25 epithelial cells Rx: -Ceftriaxone 1g IV qD (03/06--) -Azithromycin 500 mg IV qD (03/06--) #Acute hypoxic respiratory failure, likely 2/2 #Aspiration pneumonia vs. CAP #C/f mesenteric ischemia #Lactic acidosis Patient was apparently brought in for hypoxia and shortness of breath with 03/05 admission SpO2 of 93% on 2 L NC Also came in with an initial lactic acid of 4.6 which later down-trended to 2.4 Physical exam notable for diffuse expiratory rhonchi and crackles along with a persistent gurgling sound seemingly originating from the upper airway Hypoxia likely 2/2 aspiration pneumonia or CAP 03/05 chest CTA and CTAP showed left lower lobe consolidation but was also notable for mesenteric fat stranding and prominent mesenteric lymphadenopathy (possibly concerning for mesenteric ischemia) Dx: -Lactic acid trend: 4.6->2.4->2.1->2.5->3.9->2.9 -03/07 CTAP ordered to rule out mesenteric ischemia, showed ___ Rx: -Antibiotics as above -Supplemental oxygen as needed -Duoneb q4HRRT -Aspiration precautions -Chest physiotherapy RRx: -Lactic acid up-trended from 2.5 to 3.9 today which in this patient's clinical picture is concerning for mesenteric ischemia. We will follow-up on the results of 03/07 CTAP and consult General Surgery (Dr. Hernández) should it show worrisome findings. #Dysphagia Patient failed 03/07 bedside swallow evaluation Dx: -03/07 modified barium swallow ordered, showed ___ Rx: -Strict NPO #NSTEMI, Type I vs. Type II, resolved 03/05 admission troponin 1.162 Trend: 1.162->1.827->2.776->2.780->3.132->2.961->2.232 Currently favor Type II NSTEMI demand ischemia i/s/o sepsis and acute infection Rx: -Cardiology (Dr. Peace) consulted, appreciate recommendations #Hx of seizures On home valproic acid 250 mg PO BID Rx: -Valproic acid 125 mg IV q6HR #Hypertensive emergency, resolved #Hx of hypertension 03/05 admission BP of 181/121 with altered mentation, troponin elevation, lactic acidosis, and mild transaminitis Currently normotensive Rx: -Continue to monitor BP #Hx of diabetes mellitus (insulin-dependent) Home meds metformin 500 mg BID, sitagliptin 100 mg qD Dx: -03/06 HgbA1c ordered, showed 6.8 Rx: -ISS -Bedside glucose checks #Hx of dementia Patient is nonverbal, GCS 14 at baseline. Failed swallow evaluation. Rx: -Speech therapy referral #Hx of HLD On home fenofibrate 54 mg x 2 PM Dx: -03/06 lipid panel ordered, results WNL (triglycerides 76, cholesterol 125, LDL 81, HDL 29) Rx: -No need to start fenofibrate as patient's triglyceride levels are WNL Health Maintenance: Code status: DNR DVT prophylaxis: Heparin GI prophylaxis: Famotidine Diet: NPO Slade: Yes Supplemental O2: NC Disposition: Tele Patient seen and reviewed with attending Dr. Vogel and senior resident Dr. Yusuf Christian, DO PGY-1
[2025-03-07 11:50] LABS: Reflex Lactate? Y
[2025-03-07 12:28] LABS: Lactate (Lactic Acid) 2.9 mMol/L (0.4-2.0)
[2025-03-07 15:27] LABS: Reflex Lactate? Y
[2025-03-07 17:16] LABS: Lactic Acid, 3 HR 2.9 mMol/L (0.4-2.0)
[2025-03-07] MEDS: SODIUM CHLORIDE 0.9% 500 ML 500 ML 80 ML IV (19:14)
[2025-03-07] MEDS: cefTRIAXone/D5w 1gm IV premix 1 GM/50 ML BAG IV (20:06)
[2025-03-08] VITALS (12 sets, daily range): BP systolic 109–141; BP diastolic 59–95; PULSE 67–85; RESP 19–30; TEMP 36.6–37.6; O2SAT 92–98; BMI 35.7
[2025-03-08] MEDS: ACETYLCYSTEINE RT SOL 10% 4 ML NEBU 3 ML INH ×4 (00:02→18:11)
[2025-03-08] MEDS: ALBUTEROL/IPRATROPIUM (Duoneb) RT SOL 3 ML NEBU INH ×5 (03:59→22:41)
[2025-03-08 06:34] LABS: Lactate (Lactic Acid) 1.5 mMol/L (0.4-2.0)
[2025-03-08 06:38] LABS: Basophils # (Auto) 0.1 Thou/mm3 (0.0-0.2); Basophils % (Auto) 1 % (0-2.5); Eosinophils # (Auto) 0.3 Thou/mm3 (0.0-0.5); Eosinophils % (Auto) 4 % (0-10); Hematocrit 35.0 % (41.0-53.0); Hemoglobin 12.0 g/dL (13.5-16.0); Immature Granulocytes Auto 0.02 Thou/mm3 (0.00-0.00); Lymphocytes # (Auto) 1.7 Thou/mm3 (1.0-4.8); Lymphocytes % (Auto) 24 % (10-50); Mean Corpuscular HGB Conc 34.3 g/dl (31.0-37.0); Mean Corpuscular Hemoglobin 31.4 pg (25.0-35.0); Mean Corpuscular Volume 92 fL (80-100); Monocytes # (Auto) 1.2 Thou/mm3 (0.0-0.8); Monocytes % (Auto) 17 % (0-12); Neutrophils # (Auto) 3.7 Thou/mm3 (1.8-7.7); Neutrophils % (Auto) 53 % (37-80); Nucleated Red Blood Cell # 0.00 Thou/mm3 (0.00-0.00); Nucleated Red Blood Cell % 0 /100 WBC (0); Platelet Count 146 Thou/mm3 (140-440); RDW Standard Deviation 43.1 fL (35.1-43.9); Red Blood Count 3.82 Miln/mm3 (4.50-5.90); White Blood Count 7.0 Thou/mm3 (3.8-10.6)
[2025-03-08 06:58] LABS: Alanine Aminotransferase 16 U/L (10-49); Albumin, Serum 3.4 gm/dL (3.4-4.8); Albumin/Globulin Ratio 1.5 (1.2-2.2); Alkaline Phosphatase 48 U/L (46-116); Anion Gap 9 (7-16); Aspartate Amino Transferase 31 U/L (0-34); BUN/Creatinine Ratio 9 Ratio (12-20); Bilirubin,Total 0.5 mg/dL (0.3-1.2); Blood Urea Nitrogen 7 mg/dL (9-23); Calcium 8.3 mg/dL (8.3-10.6); Calcium (Corrected) 8.8 mg/dL (8.5-10.1); Carbon Dioxide 24.7 mMol/L (20.0-31.0); Chloride 109 mMol/L (98-107); Creatinine (Component) 0.8 mg/dL (0.6-1.3); Estimated Creatinine Clearance 67.0 mL/min (>60); Globulin 2.3 gm/dL (2.3-3.5); Glucose 121 mg/dL (74-106); Magnesium 1.6 mg/dL (1.6-2.6); Osmolality,Calculated 283 (275-295); Phosphorous 3.1 mg/dL (2.4-5.1); Potassium 3.5 mMol/L (3.4-5.1); Sodium 143 mMol/L (136-145); Total Protein 5.7 gm/dL (5.7-8.2); eGFR > 60 See Note
[2025-03-08] MEDS: Magnesium Sulfate 2 GM Ivpb 2 GM/50 ML BAG IV (08:01)
[2025-03-08] MEDS: FAMOTIDINE INJ 10 MG/ML VIAL 2 ML 20 MG IVP ×2 (08:01→20:46)
[2025-03-08] MEDS: AZITHROMYCIN INJ 500 MG in SODIUM CHLORIDE 0.9% 250 ML 250 ML 250 MG IV (08:07)
--- NOTE | 2025-03-08 08:19 | ESPR_ITS ---
<Statement entered by Rell Peace MD - 03/08/25 17:11> I personally evaluated examined this patient was admitted for multiple medical problems including sepsis patient with altered mental status dementia not offering any chest pain shortness breath troponin was elevated slightly and has come down since then but did not have any echo will get a cardiac echo ordered as well to assess left ventricle wall motion function. Clinically patient is stable not have any chest pain or shortness of breath is not very communicative but is much more alert and awake compared to yesterday. Agree with treatment plan recommendation as documented by PGY 1 Dr. Malcolm Martinez will order cardiac echo assess LV function since there is no echo documentation this hospitalization or previous visits. Conservative medical management is recommended no need to treat as myocardial infarction no anticoagulation necessary clinical picture does not support significant CAD type II troponin elevation appears to be secondary to sepsis Documentation for date of: 03/08/25 Subjective Subjective Interval history: Patient seen and examined at bedside today; no acute events overnight. Exam Vital Signs Temp Pulse Resp BP Pulse Ox O2 Del Method O2 Flow Rate 97.9 F 79 20 141/78 H 96 Nasal Cannula 2 03/08/25 08:00 03/08/25 08:00 03/08/25 08:00 03/08/25 08:00 03/08/25 08:00 03/08/25 08:00 03/08/25 08:00 Narrative Exam GENERAL: nonverbal, appears stated age HEENT: Eyes closed. NC/AT. Moist mucosa. PERRLA CARDIO: Heart RRR, no obvious murmurs, no JVD. PULM: Bilateral crackles auscultated, noncardiac without any wheezes/rales or rhonchi, on 2 L NC GI: Abdomen soft but diffusely tender to palpation on all 4 quadrants, unable to assess for rebound or guarding due to diffuse tenderness SKIN/MSK/EXT: Right heel pressure ulcer noted. No discoloration/rashes/edema/amputations noted. +Pedal pulses present B/L. NEURO: A&O x0, nonverbal, no focal neurologic deficits noted Objective Labs 03/08/25 06:21 03/08/25 06:21 Labs: Laboratory Results - last 24 hr 03/07/25 03/07/25 03/07/25 08:40 12:15 15:50 WBC RBC Hgb Hct MCV MCH MCHC RDW Std Deviation Plt Count Neut % (Auto) Lymph % (Auto) [place] % (Auto) Eos % (Auto) Baso % (Auto) Neut # (Auto) Lymph # (Auto) [place] # (Auto) Eos # (Auto) Baso # (Auto) Immature Gran # (Auto) Absolute Nucleated RBC Immature Gran % Nucleated RBC % Sodium Potassium Chloride Carbon Dioxide Anion Gap BUN Creatinine Estim Creat Clear Calc eGFR BUN/Creatinine Ratio Glucose Calculated Osmolality Lactic Acid 3.9 H 2.9 H 2.9 H Calcium Corrected Calcium Phosphorus Magnesium Total Bilirubin AST ALT Alkaline Phosphatase Total Protein Albumin Globulin Albumin/Globulin Ratio 03/08/25 06:21 WBC 7.0 RBC 3.82 L Hgb 12.0 L Hct 35.0 L MCV 92 MCH 31.4 MCHC 34.3 RDW Std Deviation 43.1 Plt Count 146 Neut % (Auto) 53 Lymph % (Auto) 24 [place] % (Auto) 17 H Eos % (Auto) 4 Baso % (Auto) 1 Neut # (Auto) 3.7 Lymph # (Auto) 1.7 [place] # (Auto) 1.2 H Eos # (Auto) 0.3 Baso # (Auto) 0.1 Immature Gran # (Auto) 0.02 H Absolute Nucleated RBC 0.00 Immature Gran % 0 Nucleated RBC % 0 Sodium 143 Potassium 3.5 Chloride 109 H Carbon Dioxide 24.7 Anion Gap 9 BUN 7 L Creatinine 0.8 Estim Creat Clear Calc 67.0 eGFR > 60 BUN/Creatinine Ratio 9 L Glucose 121 H Calculated Osmolality 283 Lactic Acid 1.5 Calcium 8.3 Corrected Calcium 8.8 Phosphorus 3.1 Magnesium 1.6 Total Bilirubin 0.5 AST 31 ALT 16 Alkaline Phosphatase 48 Total Protein 5.7 Albumin 3.4 Globulin 2.3 Albumin/Globulin Ratio 1.5 Quality Measures Quality Measures VTE prophylaxis Advance care planning discussed with:: other Assessment & Plan Assessment Current Active Medications: Generic Name Dose Route Start Last Admin Trade Name Freq PRN Reason Stop Dose Admin Acetaminophen 650 mg 03/06/25 02:37 Acetaminophen 325 Mg Tablet PO 04/05/25 02:36 Q6H PRN Fever >100.4 or pain 1-3 Hydrocodone Bitart/Acetaminophen 1 tab 03/06/25 02:37 Hydrocodone/Apap 5/325 Tablet PO 03/11/25 02:36 Q4HR PRN PAIN SCALE 4-6 (Moderate Acetylcysteine 3 ml 03/07/25 01:00 03/08/25 07:13 Acetylcysteine Rt Jonelle 10% 4 Ml Nebu INH 04/06/25 00:59 3 ml Q6HRRT SOHA Administration Albuterol/Ipratropium 3 ml 03/06/25 03:00 03/08/25 07:13 Albuterol/Ipratropium (Duoneb) Rt Jonelle 3 Ml Nebu INH 04/05/25 02:59 3 ml Q4HRRT SOHA Administration Dextrose 25 ml 03/06/25 04:14 Dextrose 50%-Water Inj 50 Ml Syringe IV 04/05/25 04:13 Q15MIN PRN BG 50-70 responsive npo pt Dextrose 50 ml 03/06/25 04:14 Dextrose 50%-Water Inj 50 Ml Syringe IV 04/05/25 04:13 Q15MIN PRN BG <50 OR BG <70 & pt unresponsive Docusate Sodium 100 mg 03/06/25 02:37 Docusate Sod 100 Mg Capsule PO 04/05/25 02:36 QDAY PRN CONSTIPATION Protocol Famotidine 20 mg 03/06/25 09:00 03/08/25 08:01 Famotidine Inj 10 Mg/Ml Vial 2 Ml IVP 04/05/25 08:59 20 mg Q12HR SOHA Administration Glucagon 1 mg 03/06/25 04:14 Glucagon Inj 1 Mg Vial IM Q15MIN PRN BG <70, and no IV access Ceftriaxone Sodium/Dextrose 1 gm in 50 mls @ 100 mls/hr 03/06/25 21:00 03/07/25 20:06 Rocephin/D5w 1gm Iv Premix IV 03/13/25 20:59 100 mls/hr QPM SOHA Administration Azithromycin 500 mg/ Sodium 250 mls @ 250 mls/hr 03/06/25 09:41 03/08/25 08:07 Chloride IV 03/13/25 09:40 250 mls/hr QDAY SOHA Administration Valproic Acid 125 mg/ Sodium 101.25 mls @ 101.25 mls/hr 03/06/25 12:00 03/08/25 05:05 Chloride IV 04/05/25 11:59 101.25 mls/hr Q6HR SOHA Administration Protocol Magnesium Sulfate 2 gm in 50 mls @ 25 mls/hr 03/08/25 07:47 03/08/25 08:01 Magnesium Sulfate Ivpb IV 03/08/25 09:46 25 mls/hr X1 ONE Administration Insulin Human Lispro 0 unit 03/06/25 07:30 03/08/25 08:07 Insulin Lispro (Admelog) 1 Unit/0.01 Ml Unit SC 04/05/25 07:29 Not Given ACHS SOHA Protocol Ondansetron HCl 4 mg 03/06/25 02:37 Ondansetron Inj 2 Mg/Ml Inj 2 Ml IVP 04/05/25 02:36 Q6H PRN NAUSEA OR VOMITING Protocol Plan 79-year-old M with PMH of HTN, DM, dementia, cirrhosis, HLD, DNR selective treatment was brought in for evaluation from nursing for altered mental status. Admitted for sepsis. #NSTEMI Type II #Elevated troponin As above, unable to obtain symptoms that the patient is currently having Troponin 1.162 --> 3.132 --> 2.232; likely due to demand ischemia resulting from sepsis. No DVT on venous doppler Plan: Stop trending troponin Treat underlying cause of demand ischemia #Hypertension #Hypertensive emergency Currently normotensive blood presented with hypertensive urgency/emergency with elevated troponin Patient appears to be on multiple antihypertensive medications at home including clonidine 0.2 mg p.o. daily, spironolactone 25 mg p.o. twice daily Plan: Monitor blood pressure Consider starting MARC/ARB if patient is hypertensive #Septic encephalopathy 2/2 #UTI or #Pneumonia CAP #Lactic acidosis - resolving #Insulin-dependent type 2 diabetes #Dementia #Cirrhosis #Hyperlipidemia Rest of medical problems to be managed by primary hospitalist team Patient seen and assessed with attending Dr. Peace This case was discussed with my attending physician, Dr. Peace. Familia Martinez, PGY1
--- NOTE | 2025-03-08 09:59 | XR_ITS ---
Examination: Abdomen sonogram, Limited Date and time of exam: March 08, 2025, 1133 hours INDICATIONS: Extensive mesenteric edema, suspicious for thrombus in the mesenteric and portal veins on CTA abdomen/pelvis study yesterday Technique: Real-time mcginnis scale transabdominal sonographic images of the upper abdomen obtained. Findings: Negative for gallstones Gallbladder wall 0.36 cm no edema Common bile duct 0.4 cm Pancreatic head 3.5 cm, no flow noted in the mesenteric or splenic vein Liver 13.8 cm fatty infiltration, no color flow in the portal vein Patent IVC IMPRESSION: Abnormal study, findings consistent with thrombus in the mesenteric vein, splenic vein, portal vein
--- NOTE | 2025-03-08 13:24 | ESPR_ITS ---
Documentation for date of: 03/08/25 Subjective Subjective Interval history: No acute events overnight. Patient seen at bedside, awake and intermittently interactive. Respiratory status stable on 2 L NC. Abdomen soft and non-tender. Speech therapy evaluated; swallow study rescheduled for tomorrow. Abdominal ultrasound performed today confirmed thrombosis in the mesenteric, splenic, and portal veins. Spoke with Dr. Ellsworth (General Surgery) he advised conservative management and initiation of anticoagulation. Heparin drip was started. GI consulted for further management recommendations. No new fevers or hemodynamic instability. Exam Vital Signs Temp Pulse Resp BP Pulse Ox O2 Del Method O2 Flow Rate 98.8 F 76 19 128/73 95 Nasal Cannula 2 03/08/25 12:00 03/08/25 12:00 03/08/25 12:00 03/08/25 12:00 03/08/25 12:00 03/08/25 12:00 03/08/25 12:00 Narrative Exam GENERAL APPEARANCE: AOx0 (baseline) but seems able to understand speech. Constantly gargling in his upper throat. In some distress, no cyanosis, pallor, or diaphoresis. HEENT: Normocephalic atraumatic, no facial trauma, neck is supple. Lids/conjunctiva normal. Mucous membranes moist, nares normal, lips/teeth normal uvula midline without oral pharyngeal erythema, exudate or swelling TMs normal bilaterally. No lymphangitis/lymphedema. CARDIAC: Difficult to auscultate due to constant gargling by patient. Tachycardic, S1+S2 heard. No murmurs, rubs, or gallops noted RESPIRATORY: Persistent gargling/gurgling noise, expiratory rhonchi and crackles on auscultation of anterior lung francois. No rales, tripod positioning, or accessory muscle use. ABDOMINAL: Patient screamed upon lifting of shirt, and also upon palpation of the abdomen. NBS. Soft. No evidence of fluid wave. No pulsatile masses on exam, rebound tenderness, Kwon sign or pain over Mcburney's point. DERM: Right heel ulcer. Warm, pink and dry. No rashes, dermatoses or petechiae. NEUROLOGICAL: Unable to be assessed as patient does not follow commands Objective Labs 03/09/25 05:40 03/09/25 05:40 Labs: Laboratory Results - last 24 hr 03/07/25 03/08/25 15:50 06:21 WBC 7.0 RBC 3.82 L Hgb 12.0 L Hct 35.0 L MCV 92 MCH 31.4 MCHC 34.3 RDW Std Deviation 43.1 Plt Count 146 Neut % (Auto) 53 Lymph % (Auto) 24 [place] % (Auto) 17 H Eos % (Auto) 4 Baso % (Auto) 1 Neut # (Auto) 3.7 Lymph # (Auto) 1.7 [place] # (Auto) 1.2 H Eos # (Auto) 0.3 Baso # (Auto) 0.1 Immature Gran # (Auto) 0.02 H Absolute Nucleated RBC 0.00 Immature Gran % 0 Nucleated RBC % 0 Sodium 143 Potassium 3.5 Chloride 109 H Carbon Dioxide 24.7 Anion Gap 9 BUN 7 L Creatinine 0.8 Estim Creat Clear Calc 67.0 eGFR > 60 BUN/Creatinine Ratio 9 L Glucose 121 H Calculated Osmolality 283 Lactic Acid 2.9 H 1.5 Calcium 8.3 Corrected Calcium 8.8 Phosphorus 3.1 Magnesium 1.6 Total Bilirubin 0.5 AST 31 ALT 16 Alkaline Phosphatase 48 Total Protein 5.7 Albumin 3.4 Globulin 2.3 Albumin/Globulin Ratio 1.5 Quality Measures Quality Measures VTE prophylaxis Advance care planning discussed with:: patient Assessment & Plan Assessment Current Active Medications: Generic Name Dose Route Start Last Admin Trade Name Freq PRN Reason Stop Dose Admin Acetaminophen 650 mg 03/06/25 02:37 Acetaminophen 325 Mg Tablet PO 04/05/25 02:36 Q6H PRN Fever >100.4 or pain 1-3 Hydrocodone Bitart/Acetaminophen 1 tab 03/06/25 02:37 Hydrocodone/Apap 5/325 Tablet PO 03/11/25 02:36 Q4HR PRN PAIN SCALE 4-6 (Moderate Acetylcysteine 3 ml 03/07/25 01:00 03/08/25 07:13 Acetylcysteine Rt Jonelle 10% 4 Ml Nebu INH 04/06/25 00:59 3 ml Q6HRRT SOHA Administration Albuterol/Ipratropium 3 ml 03/06/25 03:00 03/08/25 07:13 Albuterol/Ipratropium (Duoneb) Rt Jonelle 3 Ml Nebu INH 04/05/25 02:59 3 ml Q4HRRT SOHA Administration Dextrose 25 ml 03/06/25 04:14 Dextrose 50%-Water Inj 50 Ml Syringe IV 04/05/25 04:13 Q15MIN PRN BG 50-70 responsive npo pt Dextrose 50 ml 03/06/25 04:14 Dextrose 50%-Water Inj 50 Ml Syringe IV 04/05/25 04:13 Q15MIN PRN BG <50 OR BG <70 & pt unresponsive Docusate Sodium 100 mg 03/06/25 02:37 Docusate Sod 100 Mg Capsule PO 04/05/25 02:36 QDAY PRN CONSTIPATION Protocol Famotidine 20 mg 03/06/25 09:00 03/08/25 08:01 Famotidine Inj 10 Mg/Ml Vial 2 Ml IVP 04/05/25 08:59 20 mg Q12HR SOHA Administration Glucagon 1 mg 03/06/25 04:14 Glucagon Inj 1 Mg Vial IM Q15MIN PRN BG <70, and no IV access Ceftriaxone Sodium/Dextrose 1 gm in 50 mls @ 100 mls/hr 03/06/25 21:00 03/07/25 20:06 Rocephin/D5w 1gm Iv Premix IV 03/13/25 20:59 100 mls/hr QPM SOHA Administration Azithromycin 500 mg/ Sodium 250 mls @ 250 mls/hr 03/06/25 09:41 03/08/25 08:07 Chloride IV 03/13/25 09:40 250 mls/hr QDAY SOHA Administration Valproic Acid 125 mg/ Sodium 101.25 mls @ 101.25 mls/hr 03/06/25 12:00 03/08/25 11:49 Chloride IV 04/05/25 11:59 101.25 mls/hr Q6HR SOHA Administration Protocol Insulin Human Lispro 0 unit 03/06/25 07:30 03/08/25 11:49 Insulin Lispro (Admelog) 1 Unit/0.01 Ml Unit SC 04/05/25 07:29 Not Given ACHS SOHA Protocol Ondansetron HCl 4 mg 03/06/25 02:37 Ondansetron Inj 2 Mg/Ml Inj 2 Ml IVP 04/05/25 02:36 Q6H PRN NAUSEA OR VOMITING Protocol Plan 79-year-old male from SN[facility] admitted for sepsis secondary to aspiration pneumonia and UTI, now improving. 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 #Sepsis, likely 2/2 #Aspiration pneumonia vs. CAP #UTI Patient brought in on 03/05 from long-term due to worsening mentation, hypoxia, fevers and SOB Patient met 4/4 SIRS criteria at the time by the following: Temperature above 100.4 or below 98.6 (100.9), HR>90 (125), RR>20 or PaCO2<32 (35), WBC above 12 or below 4 (16.9) + source of infection (pneumonia and UTI) Evidence for source of infection is finding of 03/05 UA - (1+ protein, 4+ glucose, 2+ blood, positive LE, 34 RBC, 123 WBC, some bacteria and yeast) and left lower lobe consolidation on 03/05 chest CTA and CTAP qSOFA rating predicting high-risk mortality if 2 or more of the following criteria met (2/3): SBP 100 or less (not met), RR 22 or more (met), GCS less than 15 (met) In the context of fluid resuscitation, patient was s/p 3.4 L of IV fluid given in the ED 03/08/2025: WBC and lactic acid normalized, hemodynamically stable. Dx: -03/05 blood cultures were negative after 48 hours. -03/06 sputum GS showed 4+ WBC, 3+ GPC, 2+ GNR, 10-25 epithelial cells Rx: -Ceftriaxone 1g IV qD (03/06--) -Azithromycin 500 mg IV qD (03/06--) #Acute hypoxic respiratory failure, likely 2/2 #Aspiration pneumonia vs. CAP #C/f mesenteric ischemia #Lactic acidosis Patient was apparently brought in for hypoxia and shortness of breath with 03/05 admission SpO2 of 93% on 2 L NC Also came in with an initial lactic acid of 4.6 which later down-trended to 2.4 Physical exam notable for diffuse expiratory rhonchi and crackles along with a persistent gurgling sound seemingly originating from the upper airway Hypoxia likely 2/2 aspiration pneumonia or CAP 03/05 chest CTA and CTAP showed left lower lobe consolidation but was also notable for mesenteric fat stranding and prominent mesenteric lymphadenopathy (possibly concerning for mesenteric ischemia) Dx: -Lactic acid trend: 4.6->2.4->2.1->2.5->3.9->2.9->1.5 -03/07 CTAP ordered to rule out mesenteric ischemia, showed ___ Rx: -Antibiotics as above -Supplemental oxygen as needed -Duoneb q4HRRT -Aspiration precautions -Chest physiotherapy # Mesenteric, splenic, 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 Plan: -Conservative management per Dr. Ellsworth (Surgery) -Initiated heparin drip for therapeutic anticoagulation -GI consulted for further input -Continue to monitor abdominal exam and lactic acid trends # Dysphagia Continues to aspirate on all consistencies. Plan: -Maintain strict NPO except PO meds if essential -Modified barium swallow rescheduled for tomorrow -Continue speech therapy follow-up #NSTEMI, Type I vs. Type II, resolved 03/05 admission troponin 1.162 Trend: 1.162->1.827->2.776->2.780->3.132->2.961->2.232 Currently favor Type II NSTEMI demand ischemia i/s/o sepsis and acute infection Rx: -Cardiology (Dr. Peace) consulted, appreciate recommendations #Hx of seizures On home valproic acid 250 mg PO BID Rx: -Valproic acid 125 mg IV q6HR #Hypertensive emergency, resolved #Hx of hypertension 03/05 admission BP of 181/121 with altered mentation, troponin elevation, lactic acidosis, and mild transaminitis Currently normotensive Rx: -Continue to monitor BP #Hx of diabetes mellitus (insulin-dependent) Home meds metformin 500 mg BID, sitagliptin 100 mg qD Dx: -03/06 HgbA1c ordered, showed 6.8 Rx: -ISS -Bedside glucose checks #Hx of dementia Patient is nonverbal, GCS 14 at baseline. Failed swallow evaluation. Rx: -Speech therapy referral #Hx of HLD On home fenofibrate 54 mg x 2 PM Dx: -03/06 lipid panel ordered, results WNL (triglycerides 76, cholesterol 125, LDL 81, HDL 29) Rx: -No need to start fenofibrate as patient's triglyceride levels are WNL Health Maintenance: Code status: DNR DVT prophylaxis: Heparin GI prophylaxis: Famotidine Diet: NPO [place]: Yes Supplemental O2: NC Disposition: Tele ----- Plan discussed with attending physician Dr. Hari Dumont MD PGY-1 Internal Medicine Attending Provider Attestation/Addendum I have examined the patient, reviewed labs and imaging findings, discussed the case with the resident(s), and reviewed entered orders. I agree with the plan of care as outlined in this note, with these additional summaries/recommendations: Patient seen at bedside. No acute overnight events. Patient failed swallow evaluation. In-house speech therapy following. Patient will go for swallow study tomorrow with IR. Patient will remain n.p.o. for now. IVF as needed. If no improvement, we will have further goals of care in regards to long-term nutritional goals and artificial nutrition including PPN/TPN and PEG tube placement. Poor prognostic decide if patient requires PEG tube placement in the setting of underlying dementia. Continue IV antibiotics for aspiration pneumonia and complicated urinary tract infection. Interestingly urine culture returned negative. Blood culture negative. Sputum culture pending. Continue IV antibiotics. Patient had CT abdomen and pelvis completed on 03/05/2025 which showed extensive edema in the mesentery concerning for ischemia versus lymphadenitis versus thrombus versus lymphoma. CTA abdomen and pelvis was then obtained on 03/07/2025 which again showed similar findings and radiology now recommending abdominal ultrasound which we will order. Lactic acidosis has now resolved. Patient was also noted to have elevated troponins on admission and cardiology was consulted and most likely secondary to demand ischemia. Continue valproic acid for seizure disorder. Continue insulin sliding scale for diabetes mellitus type 2 with A1c 6.8%. Target blood sugar of 140-180 while hospitalized. Please see residents note for additional details and management. Dr. Hari MD
--- NOTE | 2025-03-08 15:53 | ECHO_ITS ---
Patient Info Name: Tenzin Miles Age: 79 years : 1945 Gender: Male Ht: 152 cm Wt: 83 kg BSA: 1.92 m2 BP: 137 / 78 mmHg Exam Date: 03/09/2025 9:02 AM Admit Date: 03/06/2025 Site: [facility] Room Number: [id number] Patient Status: I Exam Type: CA echo doppler complete Toolroom Attendant: Padmaja Cardoso Ordering Physician: Rell Peace Study Info Indications troponin elev - Primary Location: S2NX Left Ventricular Outflow Tract Name Value Normal LVOT 2D LVOT Diameter 1.9 cm LVOT Doppler LVOT Peak Velocity 106 cm/s LVOT Mean Gradient 3 mmHg LVOT VTI 25 cm LVOT VTI/AV VTI Ratio 0.7 LVOT Stroke Volume 72 ml Mitral Valve Name Value Normal MV Doppler MV Decel [facility] 387 cm/s2 MV PHT 56 ms MV Area (PHT) 3.9 cm2 4.0-5.0 MV Diastolic Function MV E Peak Velocity 75 cm/s MV A Peak Velocity 76 cm/s MV E/A 1.0 MV Annular TDI MV Septal e' Velocity 6.6 cm/s MV E/e' (Septal) 11.3 MV Lateral e' Velocity 6.7 cm/s MV E/e' (Lateral) 11.1 MV e' Average 6.69 cm/s MV E/e' (Average) 11.2 Tricuspid Valve Name Value Normal TV Regurgitation Doppler TR Peak Velocity 229 cm/s Estimated PAP/RSVP RA Pressure 8 mmHg <=5 PA Systolic Pressure 29 mmHg <36 RV Systolic Pressure 29 mmHg <36 Aortic Valve Name Value Normal AV 2D/MM AV Cusp Sep (MM) 0.9 cm AV Doppler AV Peak Velocity 151 cm/s AV Mean Gradient 6 mmHg AV VTI 34 cm AV Area (Cont Eq VTI) 2.1 cm2 >=3.0 AV Area (Cont Eq Julio) 2.0 cm2 AV DI (Ujlio) 0.70 AV Regurgitation 2D LVOT Area 2.8 cm2 Ventricles Name Value Normal LV Dimensions 2D/MM IVS Diastolic Thickness (2D) 1.1 cm 0.6-1.0 LVID Diastole (2D) 3.9 cm 4.2-5.8 LVIW Diastolic Thickness (2D) 1.3 cm 0.6-1.0 LVID Systole (2D) 2.5 cm 2.5-4.0 LVOT Diameter 1.9 cm LV Mass (2D Cubed) 159.29 g 88.00-224.00 LV Mass Index (2D Cubed) 83 g/m2 49-115 Relative Wall Thickness (2D) 0.67 <=0.42 IVS/LVIW Diastolic Thickness (2D) 0.85 0.00-1.50 LV Fractional Shortening/Ejection Fraction 2D/MM LV Fractional Shortening (2D) 36 % 25-43 LV EF (2D Teichholz) 66 % Atria Name Value Normal LA Dimensions LA Volume (4C A-L) 104 ml LA Volume (BP A-L) 76 ml Left Ventricle Left ventricular chamber dimension is normal. Left ventricular systolic function is mildly reduced with visually estimated ejection fraction of 45-50%. There is mild concentric hypertrophy noted in the left ventricle. The apex is hypokinetic. The basal inferior wall, mid inferior wall, basal anterior wall, mid anterior wall, basal inferoseptal, mid inferoseptal, basal anterolateral wall, mid anterolateral wall, basal anteroseptal, mid anteroseptal, basal inferolateral wall, and mid inferolateral wall are not scored. Left ventricular segmental wall motion is abnormal. There is grade II diastolic dysfunction in the left ventricle. Right Ventricle Right ventricular chamber dimension is normal. Right ventricular systolic function is normal. Left Atrium Left atrial chamber dimension is moderately enlarged. Right Atrium Right atrial chamber dimension is mildly enlarged. Aortic Valve The aortic valve is trileaflet. There is mild aortic valve sclerosis. There is no aortic valve stenosis with a peak velocity of 151 cm/s, mean gradient of 6 mmHg, and aortic valve area of 2.1 cm2. There is no aortic valve regurgitation. Pulmonic Valve The pulmonic valve is normal. There is no pulmonic valve stenosis. There is no pulmonic regurgitation. Mitral Valve The mitral valve has thickened leaflets. There is no mitral valve stenosis. There is mild mitral valve regurgitation. Tricuspid Valve The tricuspid valve leaflets are normal. There is no tricuspid valve stenosis. There is mild tricuspid valve regurgitation. No pulmonary hypertension, estimated pulmonary arterial systolic pressure is 29 mmHg and systemic blood pressure of 137 mmHg in systole. Pericardium/Pleural The pericardium appears normal. There is no pericardial effusion. No pleural effusion visualized. Inferior Vena Cava Not well visualized inferior vena cava with >50% collapse upon inspiration consistent with normal right atrial pressure, 8 mmHg. Aorta The aortic measurements are indexed to age and body surface area. The aortic root at the sinus of Valsalva is not well visualized. The prox ascending aorta is not well visualized. Summary 1. Left ventricle size is normal and systolic function is mildly reduced. Estimated ejection fraction is 45-50%. There is grade II diastolic dysfunction. There is mild concentric hypertrophy noted. 2. Right ventricle chamber size is normal and systolic function is normal. Estimated RVSP is 29 mmHg. 3. There is mild aortic valve sclerosis with no stenosis and no regurgitation. 4. The mitral valve has thickened leaflets. 5. There is mild mitral valve regurgitation. 6. There is mild tricuspid valve regurgitation. 7. The left atrium is moderately enlarged. The right atrium is mildly enlarged. 8. Not well visualized IVC with estimated RA pressure 8 mmHg. Report Signatures Finalized by Rell Peace on 03/10/2025 12:00 PM
[2025-03-08 16:28] LABS: Partial Thromboplastin Time 27.0 Seconds (22.0-36.0)
[2025-03-08] MEDS: HEPARIN SOD INJ 5000 UNIT/ML VIAL 6650 UNIT IV (16:59)
[2025-03-08] MEDS: Heparin/D5w 25K 250 ML Ivpb 25,000 UNIT/250 ML BAG 14.95 UNIT IV (17:00)
--- NOTE | 2025-03-08 19:30 | PD.IMCONS ---
HPI Data of Consult Requesting Physician: Gume Vogel MD Primary Care Provider: Physician No Primary/Family Consult Narrative Reason for consult: mesenteric vein and portal vein thrombosis MVT/PVT History of present illness: 79 years old male being evaluated at request of the internal medicine team for mesenteric vein thrombosis and portal vein thrombosis status MVT and PVT Patient was admitted with sepsis due to aspiration pneumonia as well as UTI Patient did have an elevated lactic acid at 3.9 which is down to 1.5 CO2 remains normal at 24.[address] scan imaging patient has mesenteric edema cc:: cc: Gume Vogel MD Review of Systems Review of Systems ROS Unobtainable: unobtainable due to medical condition Past Medical History Surgical History OTHER SURGICAL HX: As in the history of present illness Meds Home Medications and Allergies Home Medications ?Medication ?Instructions ?Recorded ?Confirmed ?Type acetaminophen 325 mg tablet 650 mg PO Q4H PRN Pain 01/31/19 02/27/19 History (Tylenol) bisacodyl 10 mg rectal suppository 10 mg ND Q24H PRN Constipation 02/01/19 02/27/19 History (Dulcolax (bisacodyl)) clonidine HCl 0.2 mg tablet 0.2 mg PO QDAY 02/01/19 02/27/19 History fenofibrate 54 mg tablet 54 mg PO QDAY 02/01/19 02/27/19 History glipizide 5 mg tablet (Glucotrol) 5 mg PO BID 02/01/19 02/27/19 History insulin glargine 100 unit/mL (3 15 unit subcut HS Diabetes 02/01/19 02/27/19 History mL) subcutaneous pen (Basaglar KwikPen U-100 Insulin) lactulose 20 gram/30 mL oral 30 ml PO BID 02/01/19 02/27/19 History solution magnesium hydroxide 400 mg/5 mL 30 ml PO Q72H PRN Constipation 02/01/19 02/27/19 History oral suspension (Milk of Magnesia) metformin 500 mg tablet 500 mg PO BID 02/01/19 02/27/19 History multivitamin (Multiple Vitamins 1 tab PO QDAY 02/01/19 02/27/19 History tablet) peg [id number] 1 1 drp ophthalmic (eye) QDAY PRN 02/01/19 02/27/19 History %-0.2 %-0.2 % eye drops Dry Eyes (Artificial Tears ([id number])) perphenazine-amitriptyline 2 mg-10 0.5 tab PO HS 02/01/19 02/27/19 History mg tablet sitagliptin phosphate 100 mg 100 mg PO QDAY Diabetes 02/01/19 02/27/19 History tablet (Januvia) spironolactone 25 mg tablet 25 mg PO BID 02/01/19 02/27/19 History (Aldactone) Allergies Allergy/AdvReac Type Severity Reaction Status Date / Time No Known Allergies Allergy Verified 03/05/25 19:57 Exam Vital Signs Temp Pulse Resp BP Pulse Ox O2 Del Method O2 Flow Rate 97.9 F 75 20 109/63 98 Nasal Cannula 2 03/08/25 16:00 03/08/25 18:14 03/08/25 18:14 03/08/25 16:00 03/08/25 18:14 03/08/25 16:00 03/08/25 18:14 Constitutional Comments: Chronically ill-appearing Routine Respiratory Exam Comments: Scattered rhonchi Routine Abdominal Exam Comments: Positive bowel sound tender no rebound Results Labs 03/08/25 06:21 03/08/25 06:21 Labs: Short CBC 03/08/25 Range/Units 06:21 WBC 7.0 (3.8-10.6) Thou/mm3 Hgb 12.0 L (13.5-16.0) g/dL Hct 35.0 L (41.0-53.0) % Plt Count 146 (140-440) Thou/mm3 BMP 03/08/25 06:21 Sodium 143 Potassium 3.5 Chloride 109 H Carbon Dioxide 24.7 BUN 7 L Creatinine 0.8 Glucose 121 H Calcium 8.3 Liver Function 03/08/25 Range/Units 06:21 Total Bilirubin 0.5 (0.3-1.2) mg/dL AST 31 (0-34) U/L ALT 16 (10-49) U/L Alkaline Phosphatase 48 (46-116) U/L Albumin 3.4 (3.4-4.8) gm/dL Assessment and Plan Additional Assessment & Plan Additional Plan: # Mesenteric edema due to mesenteric vein thrombosis then portal vein thrombosis Plan Treatment is full anticoagulation for at least 3 to 6 months and if no causes found may be lifelong anticoagulation Patient may have underlying occult malignancy versus hypercoagulable state versus myeloproliferative disorder Suggestions Full anticoagulation 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
[2025-03-08] MEDS: cefTRIAXone/D5w 1gm IV premix 1 GM/50 ML BAG IV (20:46)
[2025-03-08 23:37] LABS: Partial Thromboplastin Time 65.5 Seconds (22.0-36.0)
[2025-03-09] VITALS (22 sets, daily range): BP systolic 129–179; BP diastolic 67–103; PULSE 64–94; RESP 10–29; TEMP 36.3–37.7; O2SAT 93–99; BMI 34.5
[2025-03-09] MEDS: ACETYLCYSTEINE RT SOL 10% 4 ML NEBU 3 ML INH ×4 (01:52→20:07)
[2025-03-09] MEDS: ALBUTEROL/IPRATROPIUM (Duoneb) RT SOL 3 ML NEBU INH ×5 (02:00→22:26)
[2025-03-09 06:13] LABS: Basophils # (Auto) 0.1 Thou/mm3 (0.0-0.2); Basophils % (Auto) 1 % (0-2.5); Eosinophils # (Auto) 0.4 Thou/mm3 (0.0-0.5); Eosinophils % (Auto) 6 % (0-10); Hematocrit 36.7 % (41.0-53.0); Hemoglobin 12.8 g/dL (13.5-16.0); Immature Granulocytes Auto 0.02 Thou/mm3 (0.00-0.00); Lymphocytes # (Auto) 2.1 Thou/mm3 (1.0-4.8); Lymphocytes % (Auto) 28 % (10-50); Mean Corpuscular HGB Conc 34.9 g/dl (31.0-37.0); Mean Corpuscular Hemoglobin 32.4 pg (25.0-35.0); Mean Corpuscular Volume 93 fL (80-100); Monocytes # (Auto) 1.2 Thou/mm3 (0.0-0.8); Monocytes % (Auto) 16 % (0-12); Neutrophils # (Auto) 3.6 Thou/mm3 (1.8-7.7); Neutrophils % (Auto) 49 % (37-80); Nucleated Red Blood Cell # 0.00 Thou/mm3 (0.00-0.00); Nucleated Red Blood Cell % 0 /100 WBC (0); Platelet Count 162 Thou/mm3 (140-440); RDW Standard Deviation 44.5 fL (35.1-43.9); Red Blood Count 3.95 Miln/mm3 (4.50-5.90); White Blood Count 7.4 Thou/mm3 (3.8-10.6)
[2025-03-09 06:30] LABS: Alanine Aminotransferase 17 U/L (10-49); Albumin, Serum 3.6 gm/dL (3.4-4.8); Albumin/Globulin Ratio 1.6 (1.2-2.2); Alkaline Phosphatase 51 U/L (46-116); Anion Gap 9 (7-16); Aspartate Amino Transferase 34 U/L (0-34); BUN/Creatinine Ratio 10 Ratio (12-20); Bilirubin,Total 0.4 mg/dL (0.3-1.2); Blood Urea Nitrogen 8 mg/dL (9-23); Calcium 8.3 mg/dL (8.3-10.6); Calcium (Corrected) 8.6 mg/dL (8.5-10.1); Carbon Dioxide 26.9 mMol/L (20.0-31.0); Chloride 108 mMol/L (98-107); Creatinine (Component) 0.8 mg/dL (0.6-1.3); Estimated Creatinine Clearance 65.8 mL/min (>60); Globulin 2.2 gm/dL (2.3-3.5); Glucose 110 mg/dL (74-106); Lipase 26 U/L (12-53); Magnesium 1.8 mg/dL (1.6-2.6); Osmolality,Calculated 286 (275-295); Phosphorous 3.2 mg/dL (2.4-5.1); Potassium 3.5 mMol/L (3.4-5.1); Sodium 144 mMol/L (136-145); Total Protein 5.8 gm/dL (5.7-8.2); eGFR > 60 See Note
[2025-03-09 06:33] LABS: Partial Thromboplastin Time 51.5 Seconds (22.0-36.0)
[2025-03-09] MEDS: SODIUM CHLORIDE 0.9% 1000 ML 1,000 ML 50 ML IV ×2 (08:40→23:41)
[2025-03-09] MEDS: FAMOTIDINE INJ 10 MG/ML VIAL 2 ML 20 MG IVP ×2 (08:40→21:12)
[2025-03-09] MEDS: POT PHOS 15 mMol in NS 250 ML 15 MMOL/250 ML BAG 62.5 MMOL IV (08:41)
--- NOTE | 2025-03-09 09:00 | ESPR_ITS ---
<Statement entered by Rell Peace MD - 03/12/25 18:16> The patient personally evaluated examined by me appears to be quite stable today not have any shortness of breath chest pain patient can be [facility] clinically stable. Evaluated patient with resident physician PGY 1 and patient can be discharged and no need for any further cardiac workup at this time. Documentation for date of: 03/09/25 Subjective Subjective Interval history: Patient seen and examined at bedside today; no acute events overnight. Exam Vital Signs Temp Pulse Resp BP Pulse Ox O2 Del Method O2 Flow Rate 97.9 F 72 20 148/80 H 93 L Nasal Cannula 2 03/09/25 08:00 03/09/25 08:00 03/09/25 08:00 03/09/25 08:00 03/09/25 08:00 03/09/25 08:00 03/09/25 08:00 Narrative Exam GENERAL: nonverbal, appears stated age HEENT: Eyes closed. NC/AT. Moist mucosa. PERRLA CARDIO: Heart RRR, no obvious murmurs, no JVD. PULM: Bilateral crackles auscultated, noncardiac without any wheezes/rales or rhonchi, on 2 L NC GI: Abdomen soft but diffusely tender to palpation on all 4 quadrants, unable to assess for rebound or guarding due to diffuse tenderness SKIN/MSK/EXT: Right heel pressure ulcer noted. No discoloration/rashes/edema/amputations noted. +Pedal pulses present B/L. NEURO: A&O x0, nonverbal, no focal neurologic deficits noted Objective Labs 03/09/25 05:40 03/09/25 05:40 Labs: Laboratory Results - last 24 hr 03/08/25 03/08/25 03/09/25 16:05 22:58 05:40 WBC 7.4 RBC 3.95 L Hgb 12.8 L Hct 36.7 L MCV 93 MCH 32.4 MCHC 34.9 RDW Std Deviation 44.5 H Plt Count 162 Neut % (Auto) 49 Lymph % (Auto) 28 [place] % (Auto) 16 H Eos % (Auto) 6 Baso % (Auto) 1 Neut # (Auto) 3.6 Lymph # (Auto) 2.1 [place] # (Auto) 1.2 H Eos # (Auto) 0.4 Baso # (Auto) 0.1 Immature Gran # (Auto) 0.02 H Absolute Nucleated RBC 0.00 Immature Gran % 0 Nucleated RBC % 0 APTT 27.0 65.5 H D 51.5 H D Sodium 144 Potassium 3.5 Chloride 108 H Carbon Dioxide 26.9 Anion Gap 9 BUN 8 L Creatinine 0.8 Estim Creat Clear Calc 65.8 eGFR > 60 BUN/Creatinine Ratio 10 L Glucose 110 H Calculated Osmolality 286 Calcium 8.3 Corrected Calcium 8.6 Phosphorus 3.2 Magnesium 1.8 Total Bilirubin 0.4 AST 34 ALT 17 Alkaline Phosphatase 51 Total Protein 5.8 Albumin 3.6 Globulin 2.2 L Albumin/Globulin Ratio 1.6 Lipase 26 Quality Measures Quality Measures VTE prophylaxis Advance care planning discussed with:: other Assessment & Plan Assessment Current Active Medications: Generic Name Dose Route Start Last Admin Trade Name Freq PRN Reason Stop Dose Admin Acetaminophen 650 mg 03/06/25 02:37 Acetaminophen 325 Mg Tablet PO 04/05/25 02:36 Q6H PRN Fever >100.4 or pain 1-3 Hydrocodone Bitart/Acetaminophen 1 tab 03/06/25 02:37 Hydrocodone/Apap 5/325 Tablet PO 03/11/25 02:36 Q4HR PRN PAIN SCALE 4-6 (Moderate Acetylcysteine 3 ml 03/07/25 01:00 03/09/25 06:03 Acetylcysteine Rt Jonelle 10% 4 Ml Nebu INH 04/06/25 00:59 3 ml Q6HRRT SOHA Administration Albuterol/Ipratropium 3 ml 03/06/25 03:00 03/09/25 06:04 Albuterol/Ipratropium (Duoneb) Rt Jonelle 3 Ml Nebu INH 04/05/25 02:59 3 ml Q4HRRT SOHA Administration Dextrose 25 ml 03/06/25 04:14 Dextrose 50%-Water Inj 50 Ml Syringe IV 04/05/25 04:13 Q15MIN PRN BG 50-70 responsive npo pt Dextrose 50 ml 03/06/25 04:14 Dextrose 50%-Water Inj 50 Ml Syringe IV 04/05/25 04:13 Q15MIN PRN BG <50 OR BG <70 & pt unresponsive Docusate Sodium 100 mg 03/06/25 02:37 Docusate Sod 100 Mg Capsule PO 04/05/25 02:36 QDAY PRN CONSTIPATION Protocol Famotidine 20 mg 03/06/25 09:00 03/09/25 08:40 Famotidine Inj 10 Mg/Ml Vial 2 Ml IVP 04/05/25 08:59 20 mg Q12HR SOHA Administration Glucagon 1 mg 03/06/25 04:14 Glucagon Inj 1 Mg Vial IM Q15MIN PRN BG <70, and no IV access Ceftriaxone Sodium/Dextrose 1 gm in 50 mls @ 100 mls/hr 03/06/25 21:00 03/08/25 21:15 Rocephin/D5w 1gm Iv Premix IV 03/13/25 20:59 Infused QPM SOHA Infusion Valproic Acid 125 mg/ Sodium 101.25 mls @ 101.25 mls/hr 03/06/25 12:00 03/09/25 05:04 Chloride IV 04/05/25 11:59 101.25 mls/hr Q6HR SOHA Administration Protocol Heparin Sodium/Dextrose 25,000 unit in 250 mls @ 14.95 mls/hr 03/08/25 16:45 03/09/25 08:23 Heparin In D5w Ivpb IV 03/22/25 16:44 18 units/kg/hr .[id number] SOHA 14.95 mls/hr Protocol Titration 18 UNITS/KG/HR Sodium Chloride 1,000 mls @ 50 mls/hr 03/09/25 07:30 03/09/25 08:40 Ns IV 04/08/25 07:29 50 mls/hr .Q20H SOHA Administration Potassium Phosphate 15 mmol in 250 mls @ 62.5 mls/hr 03/09/25 07:57 03/09/25 08:41 Pot Phos 15 Mmol In Ns 250 Ml IV 03/09/25 11:56 62.5 mls/hr X1 ONE Administration Insulin Human Lispro 0 unit 03/09/25 00:00 03/09/25 06:53 Insulin Lispro (Admelog) 1 Unit/0.01 Ml Unit SC 04/08/25 00:00 Not Given Q6HR SOHA Protocol Ondansetron HCl 4 mg 03/06/25 02:37 Ondansetron Inj 2 Mg/Ml Inj 2 Ml IVP 04/05/25 02:36 Q6H PRN NAUSEA OR VOMITING Protocol Plan 79-year-old M with PMH of HTN, DM, dementia, cirrhosis, HLD, DNR selective treatment was brought in for evaluation from nursing for altered mental status. Admitted for sepsis. #NSTEMI Type II #Elevated troponin As above, unable to obtain symptoms that the patient is currently having Troponin 1.162 --> 3.132 --> 2.232; likely due to demand ischemia resulting from sepsis. No DVT on venous doppler Plan: Treat underlying cause of demand ischemia #Hypertension #Hypertensive emergency Currently normotensive blood presented with hypertensive urgency/emergency with elevated troponin Patient appears to be on multiple antihypertensive medications at home including clonidine 0.2 mg p.o. daily, spironolactone 25 mg p.o. twice daily Plan: Monitor blood pressure Consider starting MARC/ARB if patient is hypertensive #Septic encephalopathy 2/2 #UTI or #Pneumonia CAP #Lactic acidosis - resolving #Insulin-dependent type 2 diabetes #Dementia #Cirrhosis #Hyperlipidemia Rest of medical problems to be managed by primary hospitalist team This case was discussed with my attending physician, Dr. Peace. Familia Martinez, PGY1
[2025-03-09] MEDS: Heparin/D5w 25K 250 ML Ivpb 25,000 UNIT/250 ML BAG 14.95 UNIT IV (09:47)
--- NOTE | 2025-03-09 10:00 | XR_ITS ---
EXAMINATION: Video esophagram Modified barium swallow Fluoroscopy 85 spot fluoroscopic lateral films soft tissue neck Date and time: March 09, 2025, 11:04 a.m. INDICATIONS: Choking with eating this week. FINDINGS: Multiple barium mixtures including pudding, honey, nectar, puree Aspiration with nectar administration with coughing IMPRESSION: Aspiration with nectar administration Fluoroscopy 0.4-minute radiation dose 26.54 mGy 85 spot fluoroscopic films of the soft tissue neck
--- NOTE | 2025-03-09 11:34 | PCS.ST ---
Addendum entered by ST Kirsten 03/09/25 11:52: Discussed high aspiration risk with medical team. Recommend PEG placement with oral gratification program. Original Note: Videofluorscopy Swallow Study completed. See report for details. Aspiration of mildly thick liquids. No aspiration of puree and moderately thick liquids.
--- NOTE | 2025-03-09 13:31 | ESPR_ITS ---
Documentation for date of: 03/09/25 Subjective Subjective Interval history: Patient seen this morning, awake and responding to yes/no questions. Crackles still present bilaterally but less gargly than previous days. Aspiration noises improved. Slade with ~175 mL urine in bag at time of exam. Modified barium swallow completed today; patient aspirated with nectar-thick liquids and multiple consistencies, consistent with severe oropharyngeal dysphagia. Called patient's brother, who was updated regarding results and overall condition. Family agreed to G-tube placement; GI (Dr. Ley) will place G-tube today. Heparin drip continued for mesenteric/splenic/portal vein thrombosis. Hematology consulted; plan to speak with Dr. Pollock tomorrow for hypercoagulable workup guidance. NS 50 mL/hr continued for hydration as patient is strictly NPO. Echo completed this morning; pending read. No new abdominal pain, respiratory distress, or hemodynamic instability. Exam Vital Signs Temp Pulse Resp BP Pulse Ox O2 Del Method O2 Flow Rate 97.4 F 69 27 H 129/67 93 L Nasal Cannula 2 03/09/25 12:00 03/09/25 12:00 03/09/25 12:00 03/09/25 12:00 03/09/25 12:00 03/09/25 12:00 03/09/25 12:00 Narrative Exam General: Awake, cooperative, NAD. HEENT: MMM, no pooling secretions, decreased gargling compared to prior. Cardiac: RRR, no murmurs. Lungs: Bilateral coarse crackles; improved aeration; stable on 2 L NC. Abdomen: Soft, non-tender, non-distended. : Slade in place, adequate output. Extremities: No edema. Neuro: Baseline dementia; answers yes/no appropriately. Skin: Warm, dry. Right heel ulcer stable. Objective Labs 03/10/25 05:09 03/09/25 05:40 Labs: Laboratory Results - last 24 hr 03/08/25 03/08/25 03/09/25 16:05 22:58 05:40 WBC 7.4 RBC 3.95 L Hgb 12.8 L Hct 36.7 L MCV 93 MCH 32.4 MCHC 34.9 RDW Std Deviation 44.5 H Plt Count 162 Neut % (Auto) 49 Lymph % (Auto) 28 [place] % (Auto) 16 H Eos % (Auto) 6 Baso % (Auto) 1 Neut # (Auto) 3.6 Lymph # (Auto) 2.1 [place] # (Auto) 1.2 H Eos # (Auto) 0.4 Baso # (Auto) 0.1 Immature Gran # (Auto) 0.02 H Absolute Nucleated RBC 0.00 Immature Gran % 0 Nucleated RBC % 0 APTT 27.0 65.5 H D 51.5 H D Sodium 144 Potassium 3.5 Chloride 108 H Carbon Dioxide 26.9 Anion Gap 9 BUN 8 L Creatinine 0.8 Estim Creat Clear Calc 65.8 eGFR > 60 BUN/Creatinine Ratio 10 L Glucose 110 H Calculated Osmolality 286 Calcium 8.3 Corrected Calcium 8.6 Phosphorus 3.2 Magnesium 1.8 Total Bilirubin 0.4 AST 34 ALT 17 Alkaline Phosphatase 51 Total Protein 5.8 Albumin 3.6 Globulin 2.2 L Albumin/Globulin Ratio 1.6 Lipase 26 Misc Test Result Cancelled Quality Measures Quality Measures VTE prophylaxis Advance care planning discussed with:: patient and sibling Assessment & Plan Assessment Current Active Medications: Generic Name Dose Route Start Last Admin Trade Name Freq PRN Reason Stop Dose Admin Acetaminophen 650 mg 03/06/25 02:37 Acetaminophen 325 Mg Tablet PO 04/05/25 02:36 Q6H PRN Fever >100.4 or pain 1-3 Hydrocodone Bitart/Acetaminophen 1 tab 03/06/25 02:37 Hydrocodone/Apap 5/325 Tablet PO 03/11/25 02:36 Q4HR PRN PAIN SCALE 4-6 (Moderate Acetylcysteine 3 ml 03/07/25 01:00 03/09/25 06:03 Acetylcysteine Rt Jonelle 10% 4 Ml Nebu INH 04/06/25 00:59 3 ml Q6HRRT SOHA Administration Albuterol/Ipratropium 3 ml 03/06/25 03:00 03/09/25 06:04 Albuterol/Ipratropium (Duoneb) Rt Jonelle 3 Ml Nebu INH 04/05/25 02:59 3 ml Q4HRRT SOHA Administration Dextrose 25 ml 03/06/25 04:14 Dextrose 50%-Water Inj 50 Ml Syringe IV 04/05/25 04:13 Q15MIN PRN BG 50-70 responsive npo pt Dextrose 50 ml 03/06/25 04:14 Dextrose 50%-Water Inj 50 Ml Syringe IV 04/05/25 04:13 Q15MIN PRN BG <50 OR BG <70 & pt unresponsive Docusate Sodium 100 mg 03/06/25 02:37 Docusate Sod 100 Mg Capsule PO 04/05/25 02:36 QDAY PRN CONSTIPATION Protocol Famotidine 20 mg 03/06/25 09:00 03/09/25 08:40 Famotidine Inj 10 Mg/Ml Vial 2 Ml IVP 04/05/25 08:59 20 mg Q12HR SOHA Administration Glucagon 1 mg 03/06/25 04:14 Glucagon Inj 1 Mg Vial IM Q15MIN PRN BG <70, and no IV access Ceftriaxone Sodium/Dextrose 1 gm in 50 mls @ 100 mls/hr 03/06/25 21:00 03/08/25 21:15 Rocephin/D5w 1gm Iv Premix IV 03/13/25 20:59 Infused QPM SOHA Infusion Valproic Acid 125 mg/ Sodium 101.25 mls @ 101.25 mls/hr 03/06/25 12:00 03/09/25 12:16 Chloride IV 04/05/25 11:59 101.25 mls/hr Q6HR SOHA Administration Protocol Heparin Sodium/Dextrose 25,000 unit in 250 mls @ 14.95 mls/hr 03/08/25 16:45 03/09/25 09:47 Heparin In D5w Ivpb IV 03/22/25 16:44 18 units/kg/hr .[id number] SOHA 14.95 mls/hr Protocol Administration 18 UNITS/KG/HR Sodium Chloride 1,000 mls @ 50 mls/hr 03/09/25 07:30 03/09/25 08:40 Ns IV 04/08/25 07:29 50 mls/hr .Q20H SOHA Administration Insulin Human Lispro 0 unit 03/09/25 00:00 03/09/25 11:58 Insulin Lispro (Admelog) 1 Unit/0.01 Ml Unit SC 04/08/25 00:00 Not Given Q6HR SOHA Protocol Ondansetron HCl 4 mg 03/06/25 02:37 Ondansetron Inj 2 Mg/Ml Inj 2 Ml IVP 04/05/25 02:36 Q6H PRN NAUSEA OR VOMITING Protocol Plan 79-year-old male with sepsis secondary to aspiration pneumonia and UTI, found to have mesenteric, splenic, and portal vein thrombosis, improving on heparin drip; family consented to G-tube placement after failed swallow study. # Severe Oropharyngeal Dysphagia Failed modified barium swallow today with aspiration of nectar-thick liquids and multiple consistencies. Unsafe for PO. Plan: * Strict NPO * GI (Dr. Ley) to place G-tube today * Held heparin drip. * Continue aspiration precautions * Speech therapy to follow after G-tube placement # Mesenteric, Splenic, and Portal Vein Thrombosis Stable, confirmed on ultrasound; on full anticoagulation. Plan: * Continue heparin drip per protocol (aPTT monitored), holding currently for placement of G-tube as stated above. * Trend CO2 * Ordered hypercoagulable labs (Protein C/S, Antithrombin, Prothrombin gene, Factor V, DOMITILA, JAK2) * Hematology consulted, will try to get a hold of Dr. Pollock and speak with him tomorrow. * Monitor abdominal exam closely * Conservative management per surgery and GI #Sepsis, likely 2/2 #Aspiration pneumonia vs. CAP #UTI Patient brought in on 03/05 from long term due to worsening mentation, hypoxia, fevers and SOB Patient met 4/4 SIRS criteria at the time by the following: Temperature above 100.4 or below 98.6 (100.9), HR>90 (125), RR>20 or PaCO2<32 (35), WBC above 12 or below 4 (16.9) + source of infection (pneumonia and UTI) Evidence for source of infection is finding of 03/05 UA - (1+ protein, 4+ glucose, 2+ blood, positive LE, 34 RBC, 123 WBC, some bacteria and yeast) and left lower lobe consolidation on 03/05 chest CTA and CTAP qSOFA rating predicting high-risk mortality if 2 or more of the following criteria met (2/3): SBP 100 or less (not met), RR 22 or more (met), GCS less than 15 (met) In the context of fluid resuscitation, patient was s/p 3.4 L of IV fluid given in the ED 03/08/2025: WBC and lactic acid normalized, hemodynamically stable. 03/09/2025: Afebrile; WBC normal; lactic acid normalized. Dx: -03/05 blood cultures were negative after 48 hours. -03/06 sputum GS showed 4+ WBC, 3+ GPC, 2+ GNR, 10-25 epithelial cells Rx: -Ceftriaxone 1g IV qD (03/06--) -Completed azithromycin 500 mg IV qD (03/06-03/09) -Continue pulmonary hygiene and chest physiotherapy #Acute hypoxic respiratory failure, likely 2/2 #Aspiration pneumonia vs. CAP #C/f mesenteric ischemia #Lactic acidosis Patient was apparently brought in for hypoxia and shortness of breath with 03/05 admission SpO2 of 93% on 2 L NC Also came in with an initial lactic acid of 4.6 which later down-trended to 2.4 Physical exam notable for diffuse expiratory rhonchi and crackles along with a persistent gurgling sound seemingly originating from the upper airway Hypoxia likely 2/2 aspiration pneumonia or CAP 03/05 chest CTA and CTAP showed left lower lobe consolidation but was also notable for mesenteric fat stranding and prominent mesenteric lymphadenopathy (possibly concerning for mesenteric ischemia) Dx: -Lactic acid trend: 4.6->2.4->2.1->2.5->3.9->2.9->1.5 -03/07 CTAP ordered to rule out mesenteric ischemia, showed ___ Rx: -Antibiotics as above -Supplemental oxygen as needed -Duoneb q4HRRT -Aspiration precautions -Chest physiotherapy #NSTEMI, Type I vs. Type II, resolved 03/05 admission troponin 1.162 Trend: 1.162->1.827->2.776->2.780->3.132->2.961->2.232 Currently favor Type II NSTEMI demand ischemia i/s/o sepsis and acute infection Rx: -Cardiology (Dr. Peace) consulted, appreciate recommendations #Hx of seizures On home valproic acid 250 mg PO BID Rx: -Valproic acid 125 mg IV q6HR #Hypertensive emergency, resolved #Hx of hypertension 03/05 admission BP of 181/121 with altered mentation, troponin elevation, lactic acidosis, and mild transaminitis Currently normotensive Rx: -Continue to monitor BP #Hx of diabetes mellitus (insulin-dependent) Home meds metformin 500 mg BID, sitagliptin 100 mg qD Dx: -03/06 HgbA1c ordered, showed 6.8 Rx: -ISS -Bedside glucose checks #Hx of dementia Patient is nonverbal, GCS 14 at baseline. Failed swallow evaluation. Rx: -Speech therapy referral #Hx of HLD On home fenofibrate 54 mg x 2 PM Dx: -03/06 lipid panel ordered, results WNL (triglycerides 76, cholesterol 125, LDL 81, HDL 29) Rx: -No need to start fenofibrate as patient's triglyceride levels are WNL Health Maintenance: Code status: DNR DVT prophylaxis: Heparin GI prophylaxis: Famotidine Diet: NPO Slade: Yes Supplemental O2: NC Disposition: Tele ----- Plan discussed with attending physician Dr. Noriega and senior resident Dr. Amalia Dumont MD PGY-1 Internal Medicine Attending Provider Attestation/Addendum I have examined the patient, reviewed labs and imaging findings, discussed the case with the resident(s), and reviewed entered orders. I agree with the plan of care as outlined in this note, with these additional summaries/recommendations: Patient seen at bedside. No acute overnight events. Patient went for videofluoroscopy swallow study today with pudding, honey, nectar and pur?e. Aspiration was noted with nectar administration. Speech therapy following. Recommending PEG placement with oral gratification program. We will follow-up with patient's family for goals of care. Patient will remain n.p.o. for now. Continue IV antibiotics for aspiration pneumonia and complicated urinary tract infection. Culture results reviewed. Patient had CT abdomen and pelvis completed on 03/05/2025 which showed extensive edema in the mesentery concerning for ischemia versus lymphadenitis versus thrombus versus lymphoma. CTA abdomen and pelvis was then obtained on 03/07/2025 which again showed similar findings. Abdominal ultrasound was obtained which revealed findings consistent with thrombus in the mesenteric vein, splenic vein and portal vein. Lactic acidosis has now resolved and patient does not appear to have an acute abdomen and no complaint of abdominal pain at this time. Gastroenterology consulted. We will continue conservative management with heparin gtt. and target APTT of 60 to 80 seconds. Hypercoagulable panel ordered, JAK2 mutation, and we will consult in- house hematology. Patient was also noted to have elevated troponins on admission and cardiology was consulted and most likely secondary to demand ischemia. Continue valproic acid for seizure disorder. Continue insulin sliding scale for diabetes mellitus type 2 with A1c 6.8%. Target blood sugar of 140-180 while hospitalized. Please see residents note for additional details and management. Overall prognosis unfortunately guarded at this time. Dr. Hari MD
[2025-03-09 13:51] LABS: Partial Thromboplastin Time 40.4 Seconds (22.0-36.0)
[2025-03-09] MEDS: HEPARIN SOD INJ 5000 UNIT/ML VIAL 3200 UNIT IVP (16:05)
--- NOTE | 2025-03-09 18:55 | SUR.PHASEI ---
pt received to pacu baay 1. vss. breathing even and unlabored. peg tube in place to abdomen small gauze dressing cdi. report from nurse julienne.
--- NOTE | 2025-03-09 19:15 | SUR.PHASEI ---
pt transferred to tele via [facility]. vss. breathing even and unlabored. report to nurse moraima. abdominal binder applied. dressing cdi.
--- NOTE | 2025-03-09 19:55 | PC.NURSE ---
dr. modi ordered to resume Heparin drip per protocol.
[2025-03-09] MEDS: cefTRIAXone/D5w 1gm IV premix 1 GM/50 ML BAG IV (21:12)
[2025-03-09 22:50] LABS: Partial Thromboplastin Time 41.4 Seconds (22.0-36.0)
[2025-03-09] MEDS: HEPARIN SOD INJ 5000 UNIT/ML VIAL 3200 UNIT IV (23:09)
[2025-03-10] VITALS (15 sets, daily range): BP systolic 123–144; BP diastolic 71–80; PULSE 65–85; RESP 19–93; TEMP 36.5–37; O2SAT 90–99; BMI 34.7; BMI 34.9
[2025-03-10] MEDS: ACETYLCYSTEINE RT SOL 10% 4 ML NEBU 3 ML INH ×4 (00:48→18:57)
[2025-03-10] MEDS: ALBUTEROL/IPRATROPIUM (Duoneb) RT SOL 3 ML NEBU INH ×6 (02:10→18:57)
[2025-03-10] MEDS: Heparin/D5w 25K 250 ML Ivpb 25,000 UNIT/250 ML BAG 18.272 UNIT IV ×2 (03:15→19:35)
[2025-03-10 05:43] LABS: Basophils # (Auto) 0.1 Thou/mm3 (0.0-0.2); Basophils % (Auto) 1 % (0-2.5); Eosinophils # (Auto) 0.3 Thou/mm3 (0.0-0.5); Eosinophils % (Auto) 4 % (0-10); Hematocrit 35.5 % (41.0-53.0); Hemoglobin 12.1 g/dL (13.5-16.0); Immature Granulocytes Auto 0.03 Thou/mm3 (0.00-0.00); Lymphocytes # (Auto) 1.6 Thou/mm3 (1.0-4.8); Lymphocytes % (Auto) 24 % (10-50); Mean Corpuscular HGB Conc 34.1 g/dl (31.0-37.0); Mean Corpuscular Hemoglobin 32.1 pg (25.0-35.0); Mean Corpuscular Volume 94 fL (80-100); Monocytes # (Auto) 1.2 Thou/mm3 (0.0-0.8); Monocytes % (Auto) 17 % (0-12); Neutrophils # (Auto) 3.6 Thou/mm3 (1.8-7.7); Neutrophils % (Auto) 54 % (37-80); Nucleated Red Blood Cell # 0.00 Thou/mm3 (0.00-0.00); Nucleated Red Blood Cell % 0 /100 WBC (0); Platelet Count 126 Thou/mm3 (140-440); RDW Standard Deviation 45.7 fL (35.1-43.9); Red Blood Count 3.77 Miln/mm3 (4.50-5.90); White Blood Count 6.7 Thou/mm3 (3.8-10.6)
[2025-03-10 06:11] LABS: INR 1.2 (0.9-1.3); Partial Thromboplastin Time 57.5 Seconds (22.0-36.0); Prothrombin Time 12.6 Seconds (9.0-12.2)
[2025-03-10 07:43] LABS: Alanine Aminotransferase 14 U/L (10-49); Albumin, Serum 3.4 gm/dL (3.4-4.8); Albumin/Globulin Ratio 1.5 (1.2-2.2); Alkaline Phosphatase 47 U/L (46-116); Anion Gap 10 (7-16); Aspartate Amino Transferase 33 U/L (0-34); BUN/Creatinine Ratio 11 Ratio (12-20); Bilirubin,Total 0.4 mg/dL (0.3-1.2); Blood Urea Nitrogen 8 mg/dL (9-23); Calcium 7.9 mg/dL (8.3-10.6); Calcium (Corrected) 8.4 mg/dL (8.5-10.1); Carbon Dioxide 24.8 mMol/L (20.0-31.0); Chloride 108 mMol/L (98-107); Creatinine (Component) 0.7 mg/dL (0.6-1.3); Estimated Creatinine Clearance 75.3 mL/min (>60); Globulin 2.2 gm/dL (2.3-3.5); Glucose 105 mg/dL (74-106); Magnesium 1.7 mg/dL (1.6-2.6); Osmolality,Calculated 283 (275-295); Phosphorous 3.1 mg/dL (2.4-5.1); Potassium 3.6 mMol/L (3.4-5.1); Sodium 143 mMol/L (136-145); Total Protein 5.6 gm/dL (5.7-8.2); eGFR > 60 See Note
[2025-03-10] MEDS: FAMOTIDINE INJ 10 MG/ML VIAL 2 ML 20 MG IVP ×2 (08:46→21:28)
[2025-03-10 11:40] LABS: Partial Thromboplastin Time 65.0 Seconds (22.0-36.0)
--- NOTE | 2025-03-10 14:12 | ESPR_ITS ---
<Statement entered by Rell Peace MD - 03/12/25 18:18> The patient personally evaluated examined by me appears to be quite stable today not have any shortness of breath chest pain patient can be discharged alf facility clinically stable. Evaluated patient with resident physician PGY 1 and patient can be discharged and no need for any further cardiac workup at this time. Documentation for date of: 03/10/25 Subjective Subjective Interval history: Patient seen and examined at bedside today; no acute events overnight. PEG tube placed by Dr. Ley overnight. Exam Vital Signs Temp Pulse Resp BP Pulse Ox O2 Del Method O2 Flow Rate 98.3 F 68 20 144/80 H 94 L Room Air 2 03/10/25 11:50 03/10/25 11:50 03/10/25 11:50 03/10/25 11:50 03/10/25 11:50 03/10/25 11:50 03/10/25 10:53 Narrative Exam GENERAL: nonverbal, appears stated age HEENT: Eyes closed. NC/AT. Moist mucosa. PERRLA CARDIO: Heart RRR, no obvious murmurs, no JVD. PULM: Bilateral crackles auscultated, noncardiac without any wheezes/rales or rhonchi, on 2 L NC GI: PEG tube present, abdomen no longer tender SKIN/MSK/EXT: Right heel pressure ulcer noted. No discoloration/rashes/edema/amputations noted. +Pedal pulses present B/L. NEURO: A&O x0, nonverbal, no focal neurologic deficits noted Objective Labs 03/10/25 05:09 03/10/25 06:30 Labs: Laboratory Results - last 24 hr 03/09/25 03/10/25 03/10/25 22:21 05:09 06:30 WBC 6.7 RBC 3.77 L Hgb 12.1 L Hct 35.5 L MCV 94 MCH 32.1 MCHC 34.1 RDW Std Deviation 45.7 H Plt Count 126 L D Neut % (Auto) 54 Lymph % (Auto) 24 [place] % (Auto) 17 H Eos % (Auto) 4 Baso % (Auto) 1 Neut # (Auto) 3.6 Lymph # (Auto) 1.6 [place] # (Auto) 1.2 H Eos # (Auto) 0.3 Baso # (Auto) 0.1 Immature Gran # (Auto) 0.03 H Absolute Nucleated RBC 0.00 Immature Gran % 0 Nucleated RBC % 0 PT 12.6 H INR 1.2 APTT 41.4 H 57.5 H D Sodium 143 Potassium 3.6 Chloride 108 H Carbon Dioxide 24.8 Anion Gap 10 BUN 8 L Creatinine 0.7 Estim Creat Clear Calc 75.3 eGFR > 60 BUN/Creatinine Ratio 11 L Glucose 105 Calculated Osmolality 283 Calcium 7.9 L Corrected Calcium 8.4 L Phosphorus 3.1 Magnesium 1.7 Total Bilirubin 0.4 AST 33 ALT 14 Alkaline Phosphatase 47 Total Protein 5.6 L Albumin 3.4 Globulin 2.2 L Albumin/Globulin Ratio 1.5 03/10/25 10:45 WBC RBC Hgb Hct MCV MCH MCHC RDW Std Deviation Plt Count Neut % (Auto) Lymph % (Auto) [place] % (Auto) Eos % (Auto) Baso % (Auto) Neut # (Auto) Lymph # (Auto) [place] # (Auto) Eos # (Auto) Baso # (Auto) Immature Gran # (Auto) Absolute Nucleated RBC Immature Gran % Nucleated RBC % PT INR APTT 65.0 H Sodium Potassium Chloride Carbon Dioxide Anion Gap BUN Creatinine Estim Creat Clear Calc eGFR BUN/Creatinine Ratio Glucose Calculated Osmolality Calcium Corrected Calcium Phosphorus Magnesium Total Bilirubin AST ALT Alkaline Phosphatase Total Protein Albumin Globulin Albumin/Globulin Ratio Quality Measures Quality Measures VTE prophylaxis Advance care planning discussed with:: other Assessment & Plan Assessment Current Active Medications: Generic Name Dose Route Start Last Admin Trade Name Freq PRN Reason Stop Dose Admin Acetaminophen 650 mg 03/06/25 02:37 Acetaminophen 325 Mg Tablet PO 04/05/25 02:36 Q6H PRN Fever >100.4 or pain 1-3 Hydrocodone Bitart/Acetaminophen 1 tab 03/06/25 02:37 Hydrocodone/Apap 5/325 Tablet PO 03/11/25 02:36 Q4HR PRN PAIN SCALE 4-6 (Moderate Acetylcysteine 3 ml 03/07/25 01:00 03/10/25 13:55 Acetylcysteine Rt Jonelle 10% 4 Ml Nebu INH 04/06/25 00:59 3 ml Q6HRRT SOHA Administration Albuterol/Ipratropium 3 ml 03/06/25 03:00 03/10/25 13:55 Albuterol/Ipratropium (Duoneb) Rt Jonelle 3 Ml Nebu INH 04/05/25 02:59 3 ml Q4HRRT SOHA Administration Dextrose 25 ml 03/06/25 04:14 Dextrose 50%-Water Inj 50 Ml Syringe IV 04/05/25 04:13 Q15MIN PRN BG 50-70 responsive npo pt Dextrose 50 ml 03/06/25 04:14 Dextrose 50%-Water Inj 50 Ml Syringe IV 04/05/25 04:13 Q15MIN PRN BG <50 OR BG <70 & pt unresponsive Docusate Sodium 100 mg 03/06/25 02:37 Docusate Sod 100 Mg Capsule PO 04/05/25 02:36 QDAY PRN CONSTIPATION Protocol Famotidine 20 mg 03/06/25 09:00 03/10/25 08:46 Famotidine Inj 10 Mg/Ml Vial 2 Ml IVP 04/05/25 08:59 20 mg Q12HR SOHA Administration Glucagon 1 mg 03/06/25 04:14 Glucagon Inj 1 Mg Vial IM Q15MIN PRN BG <70, and no IV access Ceftriaxone Sodium/Dextrose 1 gm in 50 mls @ 100 mls/hr 03/06/25 21:00 03/09/25 21:42 Rocephin/D5w 1gm Iv Premix IV 03/13/25 20:59 Infused QPM SOHA Infusion Valproic Acid 125 mg/ Sodium 101.25 mls @ 101.25 mls/hr 03/06/25 12:00 03/10/25 06:18 Chloride IV 04/05/25 11:59 Infused Q6HR S[facility]A Infusion Protocol Heparin Sodium/Dextrose 25,000 unit in 250 mls @ 14.95 mls/hr 03/08/25 16:45 03/10/25 13:21 Heparin In D5w Ivpb IV 03/22/25 16:44 22 units/kg/hr .[id number] SOHA 18.272 mls/hr Protocol Titration 18 UNITS/KG/HR Sodium Chloride 1,000 mls @ 50 mls/hr 03/09/25 07:30 03/09/25 23:41 Ns IV 04/08/25 07:29 50 mls/hr .Q20H SOHA Administration Insulin Human Lispro 0 unit 03/09/25 00:00 03/10/25 05:12 Insulin Lispro (Admelog) 1 Unit/0.01 Ml Unit SC 04/08/25 00:00 Not Given Q6HR SOHA Protocol Ondansetron HCl 4 mg 03/06/25 02:37 Ondansetron Inj 2 Mg/Ml Inj 2 Ml IVP 04/05/25 02:36 Q6H PRN NAUSEA OR VOMITING Protocol Plan 79-year-old M with PMH of HTN, DM, dementia, cirrhosis, HLD, DNR selective treatment was brought in for evaluation from nursing for altered mental status. Admitted for sepsis. #NSTEMI Type II #Elevated troponin As above, unable to obtain symptoms that the patient is currently having Troponin 1.162 --> 3.132 --> 2.232; likely due to demand ischemia resulting from sepsis. No DVT on venous doppler Plan: Treat underlying cause of demand ischemia #Hypertension #Hypertensive emergency Currently normotensive blood presented with hypertensive urgency/emergency with elevated troponin Patient appears to be on multiple antihypertensive medications at home including clonidine 0.2 mg p.o. daily, spironolactone 25 mg p.o. twice daily Plan: Monitor blood pressure Consider starting MARC/ARB if patient is hypertensive #Septic encephalopathy 2/2 #UTI or #Pneumonia CAP #Lactic acidosis - resolving #Insulin-dependent type 2 diabetes #Dementia #Cirrhosis #Hyperlipidemia Rest of medical problems to be managed by primary hospitalist team This case was discussed with my attending physician, Dr. Peace. Familia Martinez, PGY1
--- NOTE | 2025-03-10 14:12 | ESPR_ITS ---
Documentation for date of: 03/10/25 Subjective Subjective Interval history: Patient seen and examined this afternoon. No pain reported. Continues on 2 L nasal cannula with stable oxygenation. Bilateral crackles persist but no increased work of breathing. PEG tube site clean, no erythema or leakage. Dietary completed recommendations and tube feeds were initiated today via PEG. Patient tolerating flushes well so far. No bleeding noted while on therapeutic heparin drip. Slade output appropriate. Hypercoagulable labs pending. Awaiting hematology (Dr. Pollock) recommendations. Exam Vital Signs Temp Pulse Resp BP Pulse Ox O2 Del Method O2 Flow Rate 98.3 F 68 20 144/80 H 94 L Room Air 2 03/10/25 11:50 03/10/25 11:50 03/10/25 11:50 03/10/25 11:50 03/10/25 11:50 03/10/25 11:50 03/10/25 10:53 Narrative Exam General: Awake, cooperative, non verbal responds to yes or no questions. HEENT: PEG tube site clean/dry, no surrounding tenderness. Cardiac: RRR, no murmurs. Lungs: Bilateral coarse crackles; stable on 2 L NC. Abdomen: Soft, non-tender, PEG tube in place without leakage. : Slade with adequate yellow urine. Extremities: No edema. Neuro: Baseline dementia; answers yes/no questions. Skin: No signs of bleeding or bruising on heparin. Objective Labs 03/11/25 07:00 03/11/25 07:00 Labs: Laboratory Results - last 24 hr 03/09/25 03/10/25 03/10/25 22:21 05:09 06:30 WBC 6.7 RBC 3.77 L Hgb 12.1 L Hct 35.5 L MCV 94 MCH 32.1 MCHC 34.1 RDW Std Deviation 45.7 H Plt Count 126 L D Neut % (Auto) 54 Lymph % (Auto) 24 [place] % (Auto) 17 H Eos % (Auto) 4 Baso % (Auto) 1 Neut # (Auto) 3.6 Lymph # (Auto) 1.6 [place] # (Auto) 1.2 H Eos # (Auto) 0.3 Baso # (Auto) 0.1 Immature Gran # (Auto) 0.03 H Absolute Nucleated RBC 0.00 Immature Gran % 0 Nucleated RBC % 0 PT 12.6 H INR 1.2 APTT 41.4 H 57.5 H D Sodium 143 Potassium 3.6 Chloride 108 H Carbon Dioxide 24.8 Anion Gap 10 BUN 8 L Creatinine 0.7 Estim Creat Clear Calc 75.3 eGFR > 60 BUN/Creatinine Ratio 11 L Glucose 105 Calculated Osmolality 283 Calcium 7.9 L Corrected Calcium 8.4 L Phosphorus 3.1 Magnesium 1.7 Total Bilirubin 0.4 AST 33 ALT 14 Alkaline Phosphatase 47 Total Protein 5.6 L Albumin 3.4 Globulin 2.2 L Albumin/Globulin Ratio 1.5 03/10/25 10:45 WBC RBC Hgb Hct MCV MCH MCHC RDW Std Deviation Plt Count Neut % (Auto) Lymph % (Auto) [place] % (Auto) Eos % (Auto) Baso % (Auto) Neut # (Auto) Lymph # (Auto) [place] # (Auto) Eos # (Auto) Baso # (Auto) Immature Gran # (Auto) Absolute Nucleated RBC Immature Gran % Nucleated RBC % PT INR APTT 65.0 H Sodium Potassium Chloride Carbon Dioxide Anion Gap BUN Creatinine Estim Creat Clear Calc eGFR BUN/Creatinine Ratio Glucose Calculated Osmolality Calcium Corrected Calcium Phosphorus Magnesium Total Bilirubin AST ALT Alkaline Phosphatase Total Protein Albumin Globulin Albumin/Globulin Ratio Quality Measures Quality Measures VTE prophylaxis Advance care planning discussed with:: patient and sibling Assessment & Plan Assessment Current Active Medications: Generic Name Dose Route Start Last Admin Trade Name Freq PRN Reason Stop Dose Admin Acetaminophen 650 mg 03/06/25 02:37 Acetaminophen 325 Mg Tablet PO 04/05/25 02:36 Q6H PRN Fever >100.4 or pain 1-3 Hydrocodone Bitart/Acetaminophen 1 tab 03/06/25 02:37 Hydrocodone/Apap 5/325 Tablet PO 03/11/25 02:36 Q4HR PRN PAIN SCALE 4-6 (Moderate Acetylcysteine 3 ml 03/07/25 01:00 03/10/25 13:55 Acetylcysteine Rt Jonelle 10% 4 Ml Nebu INH 04/06/25 00:59 3 ml Q6HRRT SOHA Administration Albuterol/Ipratropium 3 ml 03/06/25 03:00 03/10/25 13:55 Albuterol/Ipratropium (Duoneb) Rt Jonelle 3 Ml Nebu INH 04/05/25 02:59 3 ml Q4HRRT SOHA Administration Dextrose 25 ml 03/06/25 04:14 Dextrose 50%-Water Inj 50 Ml Syringe IV 04/05/25 04:13 Q15MIN PRN BG 50-70 responsive npo pt Dextrose 50 ml 03/06/25 04:14 Dextrose 50%-Water Inj 50 Ml Syringe IV 04/05/25 04:13 Q15MIN PRN BG <50 OR BG <70 & pt unresponsive Docusate Sodium 100 mg 03/06/25 02:37 Docusate Sod 100 Mg Capsule PO 04/05/25 02:36 QDAY PRN CONSTIPATION Protocol Famotidine 20 mg 03/06/25 09:00 03/10/25 08:46 Famotidine Inj 10 Mg/Ml Vial 2 Ml IVP 04/05/25 08:59 20 mg Q12HR SOHA Administration Glucagon 1 mg 03/06/25 04:14 Glucagon Inj 1 Mg Vial IM Q15MIN PRN BG <70, and no IV access Ceftriaxone Sodium/Dextrose 1 gm in 50 mls @ 100 mls/hr 03/06/25 21:00 03/09/25 21:42 Rocephin/D5w 1gm Iv Premix IV 03/13/25 20:59 Infused QPM [facility] Infusion Valproic Acid 125 mg/ Sodium 101.25 mls @ 101.25 mls/hr 03/06/25 12:00 03/10/25 06:18 Chloride IV 04/05/25 11:59 Infused Q6HR [facility] Infusion Protocol Heparin Sodium/Dextrose 25,000 unit in 250 mls @ 14.95 mls/hr 03/08/25 16:45 03/10/25 13:21 Heparin In D5w Ivpb IV 03/22/25 16:44 22 units/kg/hr .[id number] SOHA 18.272 mls/hr Protocol Titration 18 UNITS/KG/HR Sodium Chloride 1,000 mls @ 50 mls/hr 03/09/25 07:30 03/09/25 23:41 Ns IV 04/08/25 07:29 50 mls/hr .Q20H SOHA Administration Insulin Human Lispro 0 unit 03/09/25 00:00 03/10/25 05:12 Insulin Lispro (Admelog) 1 Unit/0.01 Ml Unit SC 04/08/25 00:00 Not Given Q6HR [facility] Protocol Ondansetron HCl 4 mg 03/06/25 02:37 Ondansetron Inj 2 Mg/Ml Inj 2 Ml IVP 04/05/25 02:36 Q6H PRN NAUSEA OR VOMITING Protocol Plan 79-year-old male with sepsis secondary to aspiration pneumonia/UTI, complicated by mesenteric/splenic/portal vein thrombosis on heparin drip and severe dysphagia requiring PEG tube placement, now stable with PEG tube feeds initiated. # Severe Oropharyngeal Dysphagia Failed modified barium swallow today with aspiration of nectar-thick liquids and multiple consistencies. Unsafe for PO. PEG tube placed (03/09), Tube Feeds Started. Plan: * Continue PEG tube flushes 100 mL Q4H * Follow dietary feeding regimen started earlier today * Clean site BID with Betadine + water * Maintain strict NPO except meds # Mesenteric, Splenic, and Portal Vein Thrombosis Stable, confirmed on ultrasound; on full anticoagulation. On therapeutic heparin; clinically stable. Plan: * Await Dr. Pollock?s hematology recommendations * Continue heparin drip per protocol (aPTT monitored). * Trend CO2 * Pending hypercoagulable labs (Protein C/S, Antithrombin, Prothrombin gene, Factor V, DOMITILA) * Monitor abdominal exam closely * Conservative management per surgery and GI #Sepsis, likely 2/2 #Aspiration pneumonia vs. CAP #UTI Patient brought in on 03/05 from alf due to worsening mentation, hypoxia, fevers and SOB Patient met 4/4 SIRS criteria at the time by the following: Temperature above 100.4 or below 98.6 (100.9), HR>90 (125), RR>20 or PaCO2<32 (35), WBC above 12 or below 4 (16.9) + source of infection (pneumonia and UTI) Evidence for source of infection is finding of 03/05 UA - (1+ protein, 4+ glucose, 2+ blood, positive LE, 34 RBC, 123 WBC, some bacteria and yeast) and left lower lobe consolidation on 03/05 chest CTA and CTAP qSOFA rating predicting high-risk mortality if 2 or more of the following criteria met (2/3): SBP 100 or less (not met), RR 22 or more (met), GCS less than 15 (met) In the context of fluid resuscitation, patient was s/p 3.4 L of IV fluid given in the ED 03/10/2025: Afebrile; WBC normal; lactic acid normalized. Dx: -03/05 blood cultures were negative after 48 hours. -03/06 sputum GS showed 4+ WBC, 3+ GPC, 2+ GNR, 10-25 epithelial cells Rx: -Ceftriaxone 1g IV qD (03/06--) -Completed azithromycin 500 mg IV qD (03/06-03/09) -Continue pulmonary hygiene and chest physiotherapy #Acute hypoxic respiratory failure, likely 2/2 #Aspiration pneumonia vs. CAP #C/f mesenteric ischemia #Lactic acidosis Patient was apparently brought in for hypoxia and shortness of breath with 03/05 admission SpO2 of 93% on 2 L NC Also came in with an initial lactic acid of 4.6 which later down-trended to 2.4 Physical exam notable for diffuse expiratory rhonchi and crackles along with a persistent gurgling sound seemingly originating from the upper airway Hypoxia likely 2/2 aspiration pneumonia or CAP 03/05 chest CTA and CTAP showed left lower lobe consolidation but was also notable for mesenteric fat stranding and prominent mesenteric lymphadenopathy (possibly concerning for mesenteric ischemia) Dx: -Lactic acid trend: 4.6->2.4->2.1->2.5->3.9->2.9->1.5 -03/07 CTAP ordered to rule out mesenteric ischemia, showed ___ Rx: -Antibiotics as above -Supplemental oxygen as needed -Duoneb q4HRRT -Aspiration precautions -Chest physiotherapy #NSTEMI Type II, resolved 03/05 admission troponin 1.162 Trend: 1.162->1.827->2.776->2.780->3.132->2.961->2.232 Currently favor Type II NSTEMI demand ischemia i/s/o sepsis and acute infection Rx: -Cardiology (Dr. Peace) consulted, rec is treat underlying cause of demand ischemia. #Hx of seizures On home valproic acid 250 mg PO BID Rx: -Valproic acid 125 mg IV q6HR #Hypertensive emergency, resolved #Hx of hypertension 03/05 admission BP of 181/121 with altered mentation, troponin elevation, lactic acidosis, and mild transaminitis Currently normotensive Rx: -Continue to monitor BP #Hx of diabetes mellitus (insulin-dependent) Home meds metformin 500 mg BID, sitagliptin 100 mg qD Dx: -03/06 HgbA1c ordered, showed 6.8 Rx: -ISS -Bedside glucose checks #Hx of dementia Patient is nonverbal, GCS 14 at baseline. Failed swallow evaluation. Rx: -Speech therapy referral #Hx of HLD On home fenofibrate 54 mg x 2 PM Dx: -03/06 lipid panel ordered, results WNL (triglycerides 76, cholesterol 125, LDL 81, HDL 29) Rx: -No need to start fenofibrate as patient's triglyceride levels are WNL Health Maintenance: Code status: DNR DVT prophylaxis: Heparin GI prophylaxis: Famotidine Diet: PEG tube feeding Slade: Yes Supplemental O2: 2L NC Disposition: Tele ----- Plan discussed with attending physician Dr. Hari Dumont MD PGY-1 Internal Medicine Attending Provider Attestation/Addendum I have examined the patient, reviewed labs and imaging findings, discussed the case with the resident(s), and reviewed entered orders. I agree with the plan of care as outlined in this note, with these additional summaries/recommendations: Patient seen at bedside. No acute overnight events. Patient has no new symptoms to report although he is a poor historian with limited speech. Patient went for videofluoroscopy swallow study yesterday with pudding, honey, nectar and pur?e. Aspiration was noted with nectar administration. Speech therapy following. Recommending PEG placement with oral gratification program. Goals of care was held between patient's medical decision maker who is patient's brother Kamran. After discussing patient's prognosis and treatment options, Kamran decided to proceed with PEG tube placement. Patient underwent PEG tube placement overnight and appears to have tolerated the procedure well. Consult dietary for tube feed recommendations and free water flushes. Continue IV antibiotics for aspiration pneumonia and complicated urinary tract infection. Culture results reviewed. Patient had CT abdomen and pelvis completed on 03/05/2025 which showed extensive edema in the mesentery concerning for ischemia versus lymphadenitis versus thrombus versus lymphoma. CTA abdomen and pelvis was then obtained on 03/07/2025 which again showed similar findings. Abdominal ultrasound was obtained which revealed findings consistent with thrombus in the mesenteric vein, splenic vein and portal vein. Lactic acidosis has now resolved and patient does not appear to have an acute abdomen and no complaint of abdominal pain at this time. Gastroenterology consulted. We will continue conservative management with heparin gtt. and target APTT of 60 to 80 seconds. Hypercoagulable panel ordered, JAK2 mutation, and in-house hematology consulted and pending recommendations. Patient was also noted to have elevated troponins on admission and cardiology was consulted and most likely secondary to demand ischemia. Continue valproic acid for seizure disorder. Continue insulin sliding scale for diabetes mellitus type 2 with A1c 6.8%. Target blood sugar of 140-180 while hospitalized. Please see residents note for additional details and management. Overall prognosis unfortunately guarded at this time. Dr. Hari MD
--- NOTE | 2025-03-10 14:53 | PC.SS ---
Rounding: Pt received peg tube placement yesterday, tube feedings started today. [facility] updated on pt status. Food And Beverage Coordinator reccs sent to [facility] via [employer]. Anticipated DC tomorrow back to [facility].
--- NOTE | 2025-03-10 15:34 | PD.IMPROG ---
Documentation for date of: 03/10/25 Subjective Subjective Interval history: PEG site looks good No drainage Abdomen soft nontender benign Tolerating PEG feeding Exam Vital Signs Temp Pulse Resp BP Pulse Ox O2 Del Method O2 Flow Rate 98.3 F 74 22 H 144/80 H 98 Room Air 2 03/10/25 11:50 03/10/25 14:00 03/10/25 14:00 03/10/25 11:50 03/10/25 13:55 03/10/25 11:50 03/10/25 10:53 Objective Labs 03/10/25 05:09 03/10/25 06:30 Labs: Laboratory Results - last 24 hr 03/09/25 03/10/25 03/10/25 22:21 05:09 06:30 WBC 6.7 RBC 3.77 L Hgb 12.1 L Hct 35.5 L MCV 94 MCH 32.1 MCHC 34.1 RDW Std Deviation 45.7 H Plt Count 126 L D Neut % (Auto) 54 Lymph % (Auto) 24 [place] % (Auto) 17 H Eos % (Auto) 4 Baso % (Auto) 1 Neut # (Auto) 3.6 Lymph # (Auto) 1.6 [place] # (Auto) 1.2 H Eos # (Auto) 0.3 Baso # (Auto) 0.1 Immature Gran # (Auto) 0.03 H Absolute Nucleated RBC 0.00 Immature Gran % 0 Nucleated RBC % 0 PT 12.6 H INR 1.2 APTT 41.4 H 57.5 H D Sodium 143 Potassium 3.6 Chloride 108 H Carbon Dioxide 24.8 Anion Gap 10 BUN 8 L Creatinine 0.7 Estim Creat Clear Calc 75.3 eGFR > 60 BUN/Creatinine Ratio 11 L Glucose 105 Calculated Osmolality 283 Calcium 7.9 L Corrected Calcium 8.4 L Phosphorus 3.1 Magnesium 1.7 Total Bilirubin 0.4 AST 33 ALT 14 Alkaline Phosphatase 47 Total Protein 5.6 L Albumin 3.4 Globulin 2.2 L Albumin/Globulin Ratio 1.5 03/10/25 10:45 WBC RBC Hgb Hct MCV MCH MCHC RDW Std Deviation Plt Count Neut % (Auto) Lymph % (Auto) [place] % (Auto) Eos % (Auto) Baso % (Auto) Neut # (Auto) Lymph # (Auto) [place] # (Auto) Eos # (Auto) Baso # (Auto) Immature Gran # (Auto) Absolute Nucleated RBC Immature Gran % Nucleated RBC % PT INR APTT 65.0 H Sodium Potassium Chloride Carbon Dioxide Anion Gap BUN Creatinine Estim Creat Clear Calc eGFR BUN/Creatinine Ratio Glucose Calculated Osmolality Calcium Corrected Calcium Phosphorus Magnesium Total Bilirubin AST ALT Alkaline Phosphatase Total Protein Albumin Globulin Albumin/Globulin Ratio Impressions Impression: Dysphagia Failure to thrive increase PEG feeding as tolerated Clean the PEG site twice a day with Betadine Assessment & Plan A&P Narrative # Mesenteric edema due to mesenteric vein thrombosis then portal vein thrombosis Plan Treatment is full anticoagulation for at least 3 to 6 months and if no causes found may be lifelong anticoagulation Patient may have underlying occult malignancy versus hypercoagulable state versus myeloproliferative disorder Suggestions Full anticoagulation 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 Time Spent With Patient Time: Total time spent is greater than 50% in coordination of care (as documented) at patient's floor/unit and/or counseling patient:
--- NOTE | 2025-03-10 17:29 | ESCONSULT_ITS ---
RE: VIPUL ORTIZ : 1945 DATE OF CONSULTATION: 03/10/2025 REFERRING PHYSICIAN: Kendall Egan MD REASON FOR CONSULTATION: 1. Coagulation disorder. 2. Mesenteric portal splenic vein thrombosis. 3. Liver cirrhosis. 4. Dementia. HISTORY OF PRESENT ILLNESS: Mr. Ortiz is a 79 year old gentleman with a past history of hypertension, diabetes, dementia, cirrhosis, HLD, DNR, selective treatment from prison, who was brought to hospital for evaluation for altered mental status. He was noted to be hypoxic, febrile, coughing a lot, and having shortness of breath. He was found to have pneumonia and then, he had a CT scan done of the abdomen, which showed extensive edema in the mesentery including edema surrounding the superior mesenteric vein, and his abdominal CTA showed extensive edema same as before with finding suspicious of thrombosis of the mesenteric and portal veins. An ultrasound of the abdomen showed finding consistent with thrombosis of the mesenteric vein, splenic vein, and portal vein. Because of this coagulation disorder, this consultation is obtained. Because of the dementia, patient cannot give a lot of information, so most of the information is gathered through the record. It is noted that upon his arrival he was unresponsive and non- communicative. He made no effort to communicate, but made eye contacts occasionally. He persistently and loudly gurgles in his upper throat throughout the interview. Upon examination, patient began screaming the second he was touched by the stethoscope or examiner. PAST MEDICAL HISTORY: Consistent with hypertension, diabetes mellitus, dementia, and cirrhosis. ALLERGIES: NONE KNOWN. PAST SURGICAL HISTORY: No information except that he has a GT feeding tube. SOCIAL HISTORY: Non-smoker, non-drinker or use of illicit drug. FAMILY HISTORY: Irrelevant. PHYSICAL EXAMINATION: GENERAL: He just opened his eyes when tried to call his name and he just mentioned that he is okay. VITAL SIGNS: He is afebrile, vitals stable. HEENT: Pupils are reactive to light and accommodation and sclerae are nonicteric. NECK: Supple. There is no JVD or palpable mass. LUNGS: There is good air entry bilaterally. There is poor respiratory effort, so there are decreased breath sounds in the bases. HEART: Regular. ABDOMEN: Soft. Bowel sounds are present. There is a percutaneous GT tube present. EXTREMITIES: There is no edema. CENTRAL NERVOUS SYSTEM: Patient does not follow any command. ASSESSMENT AND PLAN: Agree with your present plan of treatment. It is noted that patient already has a workup in pending, so once the results are available one can make the recommendation accordingly. Patient should be placed on anticoagulation therapy. Once we have the results of all those coagulation studies, then one can make the recommendation accordingly. Thank you Dr. Ramana Dumont and Dr. Kendall Egan for letting me participate in the care of this interesting patient. If you have any question, please feel free to contact me. DT: 16:44:17 TT: 17:28:00 Ref: [id number] - TID: [id number]
[2025-03-10] MEDS: SODIUM CHLORIDE 0.9% 1000 ML 1,000 ML 50 ML IV (19:43)
[2025-03-10] MEDS: cefTRIAXone/D5w 1gm IV premix 1 GM/50 ML BAG IV (21:28)
[2025-03-11] VITALS (7 sets, daily range): BP systolic 127–139; BP diastolic 69–76; PULSE 76–87; RESP 18–96; TEMP 36.1–37; O2SAT 92–100; BMI 34.9
[2025-03-11] MEDS: ACETYLCYSTEINE RT SOL 10% 4 ML NEBU 3 ML INH ×3 (00:36→12:48)
[2025-03-11] MEDS: ALBUTEROL/IPRATROPIUM (Duoneb) RT SOL 3 ML NEBU INH ×3 (00:37→12:48)
[2025-03-11 07:17] LABS: Basophils # (Auto) 0.1 Thou/mm3 (0.0-0.2); Basophils % (Auto) 1 % (0-2.5); Eosinophils # (Auto) 0.3 Thou/mm3 (0.0-0.5); Eosinophils % (Auto) 4 % (0-10); Hematocrit 37.5 % (41.0-53.0); Hemoglobin 13.0 g/dL (13.5-16.0); Immature Granulocytes Auto 0.03 Thou/mm3 (0.00-0.00); Lymphocytes # (Auto) 1.9 Thou/mm3 (1.0-4.8); Lymphocytes % (Auto) 29 % (10-50); Mean Corpuscular HGB Conc 34.7 g/dl (31.0-37.0); Mean Corpuscular Hemoglobin 31.9 pg (25.0-35.0); Mean Corpuscular Volume 92 fL (80-100); Monocytes # (Auto) 1.2 Thou/mm3 (0.0-0.8); Monocytes % (Auto) 18 % (0-12); Neutrophils # (Auto) 3.2 Thou/mm3 (1.8-7.7); Neutrophils % (Auto) 48 % (37-80); Nucleated Red Blood Cell # 0.00 Thou/mm3 (0.00-0.00); Nucleated Red Blood Cell % 0 /100 WBC (0); Platelet Count 187 Thou/mm3 (140-440); RDW Standard Deviation 45.2 fL (35.1-43.9); Red Blood Count 4.07 Miln/mm3 (4.50-5.90); White Blood Count 6.7 Thou/mm3 (3.8-10.6)
[2025-03-11 07:39] LABS: Alanine Aminotransferase 19 U/L (10-49); Albumin, Serum 3.6 gm/dL (3.4-4.8); Albumin/Globulin Ratio 1.4 (1.2-2.2); Alkaline Phosphatase 65 U/L (46-116); Anion Gap 10 (7-16); Aspartate Amino Transferase 39 U/L (0-34); BUN/Creatinine Ratio 9 Ratio (12-20); Bilirubin,Total 0.4 mg/dL (0.3-1.2); Blood Urea Nitrogen 7 mg/dL (9-23); Calcium 8.8 mg/dL (8.3-10.6); Calcium (Corrected) 9.1 mg/dL (8.5-10.1); Carbon Dioxide 24.9 mMol/L (20.0-31.0); Chloride 107 mMol/L (98-107); Creatinine (Component) 0.8 mg/dL (0.6-1.3); Estimated Creatinine Clearance 64.5 mL/min (>60); Globulin 2.6 gm/dL (2.3-3.5); Glucose 134 mg/dL (74-106); Magnesium 1.8 mg/dL (1.6-2.6); Osmolality,Calculated 283 (275-295); Phosphorous 3.0 mg/dL (2.4-5.1); Potassium 3.7 mMol/L (3.4-5.1); Sodium 142 mMol/L (136-145); Total Protein 6.2 gm/dL (5.7-8.2); eGFR > 60 See Note
[2025-03-11 07:51] LABS: Partial Thromboplastin Time 87.5 Seconds (22.0-36.0)
[2025-03-11] MEDS: FAMOTIDINE INJ 10 MG/ML VIAL 2 ML 20 MG IVP (11:16)
[2025-03-11] MEDS: APIXABAN 2.5 MG TABLET 10 MG PO (11:17)
--- NOTE | 2025-03-11 12:18 | PC.SS ---
SS updated Sade at [facility] of pt DC today with peg tube, feeding Glucerna 1.2, bolus feeds. SS set up transport #[id number], pending ETA (possible 1530)
--- NOTE | 2025-03-11 14:40 | ESDS_ITS ---
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 Consulting Provider: Russ Ellsworth 03/08/25 15:55 Consult to Gastroenterology Routine Comment: Consulting Provider: Sheyla Ley 03/09/25 14:11 Consult to Hematology Routine Comment: Consulting Provider: Ray Pollock 03/09/25 18:48 Referral Registered Dietitian Routine Comment: MAY START FEEDING NOW Attending Provider on DC: Ace Noriega MD Discharging Provider: Ramana Dumont MD DS: Diagnosis Problem List Completed Was Problem List Reviewed/Reconciled?: Yes Hospital Course Hospital Course Hospital course: Mr Miles is a 79-year-old male with a history of hypertension, diabetes mellitus, dementia, cirrhosis, and hyperlipidemia, who was admitted for sepsis secondary to aspiration pneumonia and UTI. Upon admission, he was found to be hypoxic, febrile, and had an elevated lactate level. He met sepsis criteria and was started on appropriate antibiotics (ceftriaxone and azithromycin). During hospitalization, the patient was found to have mesenteric, splenic, and portal vein thrombosis based on CT imaging and confirmed by ultrasound. The decision was made to initiate heparin therapy for full anticoagulation. The patient's hemoglobin and platelet levels remained stable during treatment, and he did not experience any bleeding complications while on heparin. The patient's lactate levels normalized with fluid resuscitation. Due to severe dysphagia, the patient underwent a modified barium swallow which showed aspiration of multiple food consistencies. After discussion with the family, a PEG tube was placed for long-term enteral nutrition. Tube feeds were initiated by Dietary, and the patient tolerated them well without complications. The PEG tube site remained clean and without signs of infection or leakage. The patient had no further episodes of hypoxia and was weaned off supplemental oxygen, now stable on room air with oxygen saturation of 96%. The patient's mental status remained at baseline with minimal verbal responses and minimal interaction. Family was updated regularly, and consent was obtained for the G- tube placement. Hematology was consulted for evaluation of the patient?s hypercoagulable state, and a full workup was ordered (Protein C, Protein S, Antithrombin III, Factor V, Prothrombin gene mutation, and JAK2). Pending results will guide further anticoagulation therapy duration. Patient was hemodynamically stable on day of discharge, patient going back to [facility] presented from. Diagnosis during admission: #Sepsis secondary to aspiration pneumonia and UTI #Mesenteric, splenic, and portal vein thrombosis #Dysphagia ? PEG tube placed #Acute hypoxic respiratory failure, resolved #Hypertension, controlled #Diabetes mellitus, controlled #Cirrhosis, stable #Dementia, baseline Discharge instructions: -Follow up with PCP within 1 week of discharge -Start Eliquis 10 mg twice daily for 7days, followed by 5 mg twice daily indefinitely for mesenteric, splenic, and portal vein thrombus -Please continue tube feedings -Take Augmentin 875-125mg twice daily for 2days -Stop clonidine and Recommended to continue monitor blood pressures at facility -Continue rest of medications as previously prescribed -Return to the ED or call EMS if symptoms return and/or worsen. Dietary recommendation: -Continue intermittent bolus feeding regime of Glucerna 1.2 at [facility]: of 300ml per bolus (or 1.25 cartons per bolus; 5 cartons daily) 4x daily at 7am, 11am, 3pm. 7pm -Providin kcal, 71g protein, 136g carbs, 954ml water, 1185ml total volume If IV fluids: Flush w/ 30ml before and after each feeding or per MD If no IV fluids: Flush w/ 100ml free water before and after each feeding or per MD -Pt may benefit from ongoing goals of care discussion r/t dementia Enteral support is not recommended with end-stage, advanced, or severe dementia and has not been proven to be beneficial in increasing survival, quality, or quantity of life (ESPEN Dementia :2015). ----- Plan discussed with attending physician Dr. Hari Dumont MD PGY-1 Internal Medicine Time Spent with Patient Time attestation: Total time spent providing and/or coordinating discharge services: Time spent: Greater than 30 minutes Exam Vital Signs Temp Pulse Resp BP Pulse Ox O2 Del Method O2 Flow Rate 97.2 F 85 22 H 137/73 H 100 Nasal Cannula 1 03/11/25 12:00 03/11/25 12:48 03/11/25 12:48 03/11/25 12:00 03/11/25 12:48 03/11/25 04:00 03/11/25 12:48 Discharge Plan Plan Patient Disposition: Xfer [facility]illed [facility]sg Fac (SNF) Disposition Comment: [facility] Patient condition on transfer: Stable Care Plan Goals: Discharge Recommendations: -Follow up with PCP within 1 week of discharge -Start Eliquis 10 mg twice daily for 7days, followed by 5 mg twice daily indefinitely for mesenteric, splenic, and portal vein thrombus -Please continue tube feedings -Take Augmentin 875-125mg twice daily for 2days -Stop clonidine and Recommended to continue monitor blood pressures at facility -Continue rest of medications as previously prescribed -Return to the ED or call EMS if symptoms return and/or worsen. Dietary recommendation: -Continue intermittent bolus feeding regime of Glucerna 1.2 at [facility]: of 300ml per bolus (or 1.25 cartons per bolus; 5 cartons daily) 4x daily at 7am, 11am, 3pm. 7pm -Providin kcal, 71g protein, 136g carbs, 954ml water, 1185ml total volume If IV fluids: Flush w/ 30ml before and after each feeding or per MD If no IV fluids: Flush w/ 100ml free water before and after each feeding or per MD -Pt may benefit from ongoing goals of care discussion r/t dementia Enteral supp ort is not recommended with end-stage, advanced, or severe dementia and has not been proven to be beneficial in increasing survival, quality, or quantity of life (ESPEN Dementia :2015). Prescriptions/Referrals Prescriptions/Med Rec: New apixaban 5 mg tablet 10 mg PO BID 30 Days Qty: 44 0RF amoxicillin-pot clavulanate 875-125 mg tablet 1 tab PO Q12H Qty: 4 0RF Continued acetaminophen [Tylenol] 325 mg Tablet 650 mg PO Q6H PRN (Reason: Pain) multivitamin [Multiple Vitamins] Tablet 1 tab PO QDAY metformin 500 mg Tablet 500 mg PO BID magnesium hydroxide [Milk of Magnesia] 400 mg/5 mL Suspension 30 ml PO Q72H PRN (Reason: Constipation) bisacodyl [Dulcolax (bisacodyl)] 10 mg Suppository 10 mg IL Q24H PRN (Reason: Constipation) Artificial Tears([id number]) 1-0.2-0.2 % Drops 1 drp ophthalmic (eye) QDAY PRN (Reason: Dry Eyes) Januvia 100 mg Tablet 100 mg PO QDAY insulin glargine [Basaglar KwikPen U-100 Insulin] 100 unit/mL (3 mL) Insulin Pen 15 unit subcut HS fenofibrate 54 mg Tablet 54 mg PO QDAY lactulose 20 gram/30 mL Solution 30 ml PO BID divalproex 250 mg tablet,delayed release (DR/EC) 250 mg PO BID hydroxyzine HCl 50 mg tablet 50 mg PO HS ipratropium-albuterol 0.5 mg-3 mg(2.5 mg base)/3 mL solution for nebulization 3 ml INHALATION Q4H PRN (Reason: shortness of breath) ondansetron 4 mg tablet,disintegrating 4 mg PO Q6H bismuth subsalicylate [Anti-Diarrheal] 262 mg/15 mL suspension 524 mg PO Q30M PRN (Reason: UPSET STOMACH) Rx Instructions: do not exceed 8 doses in a 24 hour period Discontinued clonidine HCl 0.2 mg Tablet 0.2 mg PO QDAY Referrals: No Primary/Family,Physician [Primary Care Provider] Patient/Caregiver Discharge Instructions Discharge Activity: as per physical therapy, activity as tolerated and resume usual activities Education Materials: DVT Complications, Preventing Deep Vein Thrombosis, Venous Thromboembolism Print Language: Cymraes Stand Alone Forms: Nella Award Info., Patient Portal Info Letter Discharge Order Discharge Orders: Discharge (Routine); Ordered 03/11/25 Ordered By: Chiquis Goldberg Quality Discharge Quality Measures VTE therapy MD Attestestation MD Attestation I have examined the patient, reviewed labs and imaging findings, discussed the case with the resident(s), and reviewed entered orders. I agree with the plan of care as outlined in this note. Time Spent: [address] Hari MD
--- NOTE | 2025-03-11 15:57 | PD.IMPROG ---
Documentation for date of: 03/11/25 Subjective Subjective Interval history: PEG site looks good okay with discharge planning to be followed by the PCP Tolerating PEG feeding Exam Vital Signs Temp Pulse Resp BP Pulse Ox O2 Del Method O2 Flow Rate 97.2 F 85 22 H 137/73 H 100 Nasal Cannula 1 03/11/25 12:00 03/11/25 12:48 03/11/25 12:48 03/11/25 12:00 03/11/25 12:48 03/11/25 04:00 03/11/25 12:48 Objective Labs 03/11/25 07:00 03/11/25 07:00 Labs: Laboratory Results - last 24 hr 03/11/25 07:00 WBC 6.7 RBC 4.07 L Hgb 13.0 L Hct 37.5 L MCV 92 MCH 31.9 MCHC 34.7 RDW Std Deviation 45.2 H Plt Count 187 D Neut % (Auto) 48 Lymph % (Auto) 29 [place] % (Auto) 18 H Eos % (Auto) 4 Baso % (Auto) 1 Neut # (Auto) 3.2 Lymph # (Auto) 1.9 [place] # (Auto) 1.2 H Eos # (Auto) 0.3 Baso # (Auto) 0.1 Immature Gran # (Auto) 0.03 H Absolute Nucleated RBC 0.00 Immature Gran % 0 Nucleated RBC % 0 APTT 87.5 H D Sodium 142 Potassium 3.7 Chloride 107 Carbon Dioxide 24.9 Anion Gap 10 BUN 7 L Creatinine 0.8 Estim Creat Clear Calc 64.5 eGFR > 60 BUN/Creatinine Ratio 9 L Glucose 134 H Calculated Osmolality 283 Calcium 8.8 Corrected Calcium 9.1 Phosphorus 3.0 Magnesium 1.8 Total Bilirubin 0.4 AST 39 H ALT 19 Alkaline Phosphatase 65 D Total Protein 6.2 Albumin 3.6 Globulin 2.6 Albumin/Globulin Ratio 1.4 Impressions Impression: # Failure to thrive # dysphagia Okay to discharge to be followed by the PCP Assessment & Plan A&P Narrative # Mesenteric edema due to mesenteric vein thrombosis then portal vein thrombosis Plan Treatment is full anticoagulation for at least 3 to 6 months and if no causes found may be lifelong anticoagulation Patient may have underlying occult malignancy versus hypercoagulable state versus myeloproliferative disorder Suggestions Full anticoagulation 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 Time Spent With Patient Time: Total time spent is greater than 50% in coordination of care (as documented) at patient's floor/unit and/or counseling patient:
[2025-03-16 06:23] LABS: Antithrombin III, Activity 46 % normal (80-135); Antithrombin III, Antigen 49 % normal (80-120)
[2025-03-17 06:29] LABS: ANA Screen, IFA NEGATIVE (NEGATIVE); Factor V Leiden Mutation NEGATIVE; Prothrombin Fac II Mutation NEGATIVE
[2025-03-17 06:35] LABS: Protein C Antigen, Total* 68 % normal (70-140); Protein S Antigen, Total* 90 % normal (70-140)
== END 2025-03-11 16:11 | disposition skilled nursing facility (03) | DRG 177 ==
LOC: SERX 23:06 → SERHOLD 03-06 02:58 → S2NX 03-06 05:43 → S3NX 03-11 03:07
PROVIDERS: Nurse Practitioner Family; Specialist; Admitting Provider Student in an Organized Health Care Education/Training Program; Emergency Provider Emergency Medicine; Visit Provider Student in an Organized Health Care Education/Training Program
PROC: 0DH63UZ Insertion of Feeding Device into Stomach, Percutaneous Approach (ICD-10-PCS; CPT 43246; principal; 2025-03-09 17:15)
DX: J69.0 Pneumonitis due to inhalation of food and vomit (principal); G93.41 Metabolic encephalopathy; I21.A1 Myocardial infarction type 2; J96.01 Acute respiratory failure with hypoxia; K55.069 Acute infarction of intestine, part and extent unspecified; K55.059 Acute (reversible) ischemia of intestine, part and extent unspecified; N39.0 Urinary tract infection, site not specified; I16.1 Hypertensive emergency; I82.890 Acute embolism and thrombosis of other specified veins; L97.419 Non-pressure chronic ulcer of right heel and midfoot with unspecified severity; J18.9 Pneumonia, unspecified organism; E11.621 Type 2 diabetes mellitus with foot ulcer; G40.909 Epilepsy, unspecified, not intractable, without status epilepticus; I10 Essential (primary) hypertension; E78.5 Hyperlipidemia, unspecified; K74.60 Unspecified cirrhosis of liver; Z79.4 Long term (current) use of insulin; R62.7 Adult failure to thrive; Z66 Do not resuscitate; Z79.01 Long term (current) use of anticoagulants; R13.12 Dysphagia, oropharyngeal phase; F03.90 Unspecified dementia, unspecified severity, without behavioral disturbance, psychotic disturbance, mood disturbance, and anxiety; Z79.82 Long term (current) use of aspirin; Z79.84 Long term (current) use of oral hypoglycemic drugs; Z79.899 Other long term (current) drug therapy; Z93.1 Gastrostomy status
CPT/HCPCS: 36415; 51701; 51702; 70450; 71250; 74022; 74174; 74176; 74230; 76705; 80053; 80061; 81001; 81240; 81241; 83036; 83605; 83615; 83690; 83735; 83880; 84100; 84145; 84484; 85025; 85300; 85301; 85302; 85303; 85305; 85306; 85610; 85730; 86038; 87040; 87081; 87086; 87205; 87635; 92526; 92610; 93005; 93306; 93970; 94640; 94667; 96361; 96365; 96366; 96374; 99285; A4314; A4649; A9270; J0131; J0456; J0696; J1200; J1644; J2250; J3010; J3373; J3475; J3480; J3490; J7030; J7050; J7120; J7999; Q9967